=== PATIENT | female | born 1955 | race African-American/Black ===

== ENCOUNTER 2020-07-28 19:24 | Inpatient (IN) | payer OTHER ==
--- NOTE | 2020-07-28 20:34 | RAD REPORT ---
EXAM DESCRIPTION: CT - Stone Protocol - 07/28/2020 8:13 pm CLINICAL HISTORY: Flank pain. FLANK PAIN COMPARISON: No comparisons TECHNIQUE: Axial images were obtained without oral or IV contrast. Lack of contrast limits solid org an and vascular assessment. The [id number] spans the entirety of the system partially obscuring uppermost abdomen and lung bases. Coronal reformatted images were obtained and reviewed. All CT scans are performed using dose optimization technique as appropriate and may include automated exposure control or mA/KV adjustment according to patient size. FINDINGS: The lower lung cruz are clear. 7.5 x 6.4 cm rounded density is present in the right uppe r quadrant. Imaged portions of the liver and spleen show no suspicious findings on non-contrast imaging. The panc reas and adrenal glands are normal. No pathologic lymphadenopathy in the abdomen or pelvis. Aortoilia c atherosclerosis. Punctate 2 mm calculus is present in the superior pole left kidney. No hydronephrosis is present. No bowel obstruction, free air, free fluid or abscess. Normal appendix noted. Mild lower lumbar degenerative changes. IMPRESSION: Punctate 2 mm calculus superior pole left kidney. No hydronephrosis. 7.5 cm rounded masslike density in the right upper quadrant is present. This is of unclear etiology m ay be related to the stomach or the liver. Recommend CT abdomen and pelvis with contrast including or al contrast to further elucidate this finding.
[2020-07-28 20:51] LABS: Absolute Lymphocytes (CBC) 1.8 K/uL (0.7-4.9); Basophils % 1.5 % (0-1.3); Hematocrit 28.7 % (36.0-45.0); Lymphocytes % 19.2 % (15.3-44.8); MPV 9.5 fL (7.6-11.3); RBC Red Blood Cell Count 4.32 M/uL (3.86-4.86)
--- NOTE | 2020-07-28 20:53 | RAD REPORT ---
EXAM DESCRIPTION: RAD - Chest Single View - 07/28/2020 8:35 pm CLINICAL HISTORY: COUGH Chest pain. COMPARISON: Stone Protocol dated 07/28/2020 FINDINGS: Portable technique limits examination quality. The lungs are grossly clear. The heart is mildly enlarged. No displaced fractures.
[2020-07-28 21:03] LABS: Protime INR 1.07
[2020-07-28 21:10] LABS: ALT/SGPT 15 U/L (12-78); AST/SGOT 9 U/L (15-37); Albumin 2.9 g/dL (3.4-5.0); Alkaline Phosphatase 88 U/L (45-117); BUN Blood Urea Nitrogen 36 mg/dL (7-18); Bicarbonate 26 mmol/L (21-32); Bilirubin Direct < 0.1 mg/dL (0-0.2); Bilirubin Total 0.2 mg/dL (0.2-1.0); Glucose Level 249 mg/dL (74-106); Lipase 166 U/L (73-393); NT PRO-BNP 1948 pg/mL (<125); Potassium 4.4 mmol/L (3.5-5.1); Protein, Total 7.3 g/dL (6.4-8.2); Sodium Level 144 mmol/L (136-145); Troponin (Emerg Dept Use Only) 0.24 ng/mL (0.0-0.045)
--- NOTE | 2020-07-28 21:46 | ER ---
Nurse's Notes [facility] Name: Campos Odonnell Age: 64 yrs Sex: Female : 1955 Arrival Date: 07/28/2020 Time: 19:30 Bed 14 Private MD: Diagnosis: Edema, unspecified;Unspecified kidney failure-chronic;Type 1 diabetes mellitus;Subsequent non-ST elevation (NSTEMI) myocardial infarction;Anemia, unspecified Presentation: 07/28 19:31 Chief complaint: EMS states: lisa. leg swelling and shortness of breath that started em today, her kidney doctor took her off her BP medication, denies chest pain. Coronavirus screen: Client denies travel out of the [place] in the last 14 days. Ebola Screen: Patient negative for fever greater than or equal to 101.5 degrees Fahrenheit, and additional compatible Ebola Virus Disease symptoms Patient denies exposure to infectious person. Patient denies travel to an Ebola-affected area in the 21 days before illness onset. No symptoms or risks identified at this time. Initial Sepsis Screen: Does the patient meet any 2 criteria? No. Patient's initial sepsis screen is negative. Does the patient have a suspected source of infection? No. Patient's initial sepsis screen is negative. Risk Assessment: Do you want to hurt yourself or someone else? Patient reports no desire to harm self or others. Onset of symptoms was July 28, 2020. 19:31 Method Of Arrival: EMS: [facility] em 19:31 Acuity: [place] 3 em Historical: - Allergies: 19:35 Lyrica; em - Home Meds: 07/29 04:02 carvedilol oral oral [Active]; Insulin: Novolin R Sub-Q [Active]; gabapentin oral oral em [Active]; Lasix Oral [Active]; Simvastatin Oral [Active]; Spironolactone Oral [Active]; montelukast oral oral [Active]; - PMHx: 07/28 19:35 Hypertension; ESRD; Diabetes - IDDM; em - Immunization history:: Adult Immunizations up to date. - Social history:: Smoking status: Patient/guardian denies using tobacco, Stopped _ months ago 3. - Family history:: not pertinent. Screenin:35 Abuse screen: Denies threats or abuse. Nutritional screening: No deficits noted. em Tuberculosis screening: No symptoms or risk factors identified. Fall Risk None identified. Assessment: 20:41 General: Appears in no apparent distress. comfortable, Behavior is calm, cooperative, em appropriate for age. Pain: Complains of pain in left leg and right leg Pain currently is 0 out of 10 on a pain scale. Neuro: Level of Consciousness is awake, alert, obeys commands, Oriented to person, place, time, situation. Cardiovascular: Reports shortness of breath, Denies chest pain, Capillary refill < 3 seconds Patient's skin is warm and dry. Rhythm is sinus rhythm. Respiratory: Airway is patent Respiratory effort is even, unlabored, Respiratory pattern is regular, symmetrical. GI: Abdomen is round non-distended, Patient currently denies nausea. Derm: Skin is intact, is healthy with good turgor, Skin is pink, warm \T\ dry. Musculoskeletal: Capillary refill < 3 seconds, Range of motion: intact in all extremities. 22:08 Reassessment: Patient appears in no apparent distress at this time. Patient and/or em family updated on plan of care and expected duration. Pain level reassessed. Patient is alert, oriented x 3, equal unlabored respirations, skin warm/dry/pink. 03 00:30 Reassessment: Patient appears in no apparent distress at this time. Patient and/or em family updated on plan of care and expected duration. Pain level reassessed. Patient is alert, oriented x 3, equal unlabored respirations, skin warm/dry/pink. Patient states symptoms have improved. 02:13 Reassessment: Patient appears in no apparent distress at this time. Patient and/or em family updated on plan of care and expected duration. Pain level reassessed. Patient is alert, oriented x 3, equal unlabored respirations, skin warm/dry/pink. Patient states feeling better. Patient states symptoms have improved. 02:34 Reassessment: reports lower back pain and right leg pain, takes tramadol 100 mg for em pain at home, Dr. Fan notified, received VO for tramadol 100 mg PO x 1. Vital Signs: 07/28 19:31 BP 189 / 86; Pulse 77; Resp 18; Temp 97.9; Pulse Ox 100% on R/A; Weight 106.59 kg; em Height 5 ft. 6 in. (167.64 cm); Pain 0/10; 20:00 BP 163 / 68; Pulse 74; Resp 18; Pulse Ox 97% on R/A; em 22:00 BP 170 / 52; Pulse 78; Resp 18; Pulse Ox 96% on R/A; em 03/ 00:04 BP 175 / 68; Pulse 72; Resp 16; Pulse Ox 96% on R/A; em 02:35 BP 164 / 68; Pulse 73; Resp 18; Pulse Ox 99% on R/A; Pain 6/10; em 03/04 19:31 Body Mass Index 37.93 (106.59 kg, 167.64 cm) em ED Course: 07/28 19:30 Patient arrived in ED. em 19:31 Andrey Kline, MARICRUZ is Primary Nurse. em 19:31 Wilfred Fan MD is Attending Physician. [facility] 19:33 Triage completed. em 19:35 Patient has correct armband on for positive identification. Call light in reach. Side em rails up X2. Pulse ox on. NIBP on. 19:35 Arm band placed on. em 20:13 CT Stone Protocol In Process Unspecified. EDMS 20:30 Initial lab(s) drawn, by mo, sent to lab. Inserted saline lock: 20 gauge in right em antecubital area, using aseptic technique. Blood collected. 20:36 XRAY Chest (1 view) In Process Unspecified. EDMS 21:44 Magdiel Barton DO is Hospitalizing Provider. [facility] 07/29 02:17 No provider procedures requiring assistance completed. Patient admitted, IV remains in em place. 02:30 T\T\S collected, blood band applied to patient. Inserted saline lock: 22 gauge in left em forearm, using aseptic technique. Blood collected. Administered Medications: 07/28 22:18 Drug: Aspirin Chewable Tablet 162 mg Route: PO; em 07/29 02:16 Follow up: Response: No adverse reaction em 07/28 22:20 Drug: ProTONIX 40 mg Route: IVP; Site: right antecubital; em 07/29 02:18 Follow up: Response: No adverse reaction 07/28 22:22 Drug: Lopressor 25 mg Route: PO; em 07/29 02:18 Follow up: Response: No adverse reaction 07/28 22:23 Drug: Lasix 40 mg Route: IVP; Site: right antecubital; em 03/05 02:18 Follow up: Response: No adverse reaction; Marked relief of symptoms em 07/28 22:25 Drug: Pepcid 20 mg Route: IVP; Site: right antecubital; em 07/29 02:18 Follow up: Response: No adverse reaction em 07/28 22:26 Drug: Lovenox 40 mg Route: Sub-Q; Site: right lower abdomen; em 07/29 02:16 Follow up: Response: No adverse reaction em 02:40 Drug: traMADol 100 mg Route: PO; em 03:10 Follow up: Response: No adverse reaction; Pain is decreased; RASS: Alert and Calm (0) jb4 Outcome: 07/28 21:45 Decision to Hospitalize by Provider. [facility] 07/29 09:13 Patient left the ED. jl7 Signatures: Dispatcher [employer] Wilfred Delgado MD MD cha Munoz, Edgar RN Mauricio Castillo RN RN jb4 Richard Buckley RN RN jl7
--- NOTE | 2020-07-28 21:46 | EDPHYS ---
Physician Documentation [facility] Name: Campos Odonnell Age: 64 yrs Sex: Female : 1955 Arrival Date: 07/28/2020 Time: 19:30 Bed 14 Private MD: MAURSIIO Physician Wilfred Fan HPI: 07/28 20:08 This 64 yrs old Black Female presents to ER via EMS with complaints of Leg Swelling. johanne 20:08 The patient presents with swelling. The complaints affect the right leg and left leg. johanne Context: The problem was sustained at an unknown site, resulted from an unknown cause. Onset: The symptoms/episode began/occurred 3 day(s) ago. Modifying factors: The symptoms are alleviated by elevating leg, the symptoms are aggravated by movement, bending knee. Associated signs and symptoms: The patient has no apparent associated signs or symptoms. The patient presents with pain and decreased range of motion. The symptoms are located in the left low back, left mid back, right mid back and right low back. Onset: The symptoms/episode began/occurred 3 day(s) ago. The pain does not radiate. Associated signs and symptoms: The patient has no apparent associated signs or symptoms. Historical: - Allergies: 19:35 Lyrica; em - Home Meds: 07/29 04:02 carvedilol oral oral [Active]; Insulin: Novolin R Sub-Q [Active]; gabapentin oral oral em [Active]; Lasix Oral [Active]; Simvastatin Oral [Active]; Spironolactone Oral [Active]; montelukast oral oral [Active]; - PMHx: 07/28 19:35 Hypertension; ESRD; Diabetes - IDDM; em - Immunization history:: Adult Immunizations up to date. - Social history:: Smoking status: Patient/guardian denies using tobacco, Stopped _ months ago 3. - Family history:: not pertinent. ROS: 20:08 Constitutional: Negative for fever, chills, and weight loss, Eyes: Negative for injury, johanne pain, redness, and discharge, ENT: Negative for injury, pain, and discharge, Neck: Negative for injury, pain, and swelling, Cardiovascular: Negative for chest pain, palpitations, and edema, Respiratory: Negative for shortness of breath, cough, wheezing, and pleuritic chest pain, Abdomen/GI: Negative for abdominal pain, nausea, vomiting, diarrhea, and constipation, Back: Negative for injury and pain, : Negative for injury, bleeding, discharge, and swelling, MS/Extremity: Negative for injury and deformity, Skin: Negative for injury, rash, and discoloration, Neuro: Negative for headache, weakness, numbness, tingling, and seizure, Psych: Negative for depression, anxiety, suicide ideation, homicidal ideation, and hallucinations, Allergy/Immunology: Negative for hives, rash, and allergies, Endocrine: Negative for neck swelling, polydipsia, polyuria, polyphagia, and marked weight changes, Hematologic/Lymphatic: Negative for swollen nodes, abnormal bleeding, and unusual bruising. Exam: 20:08 Constitutional: This is a well developed, well nourished patient who is awake, alert, johanne and in no acute distress. Head/Face: Normocephalic, atraumatic. Eyes: Pupils equal round and reactive to light, extra-ocular motions intact. Lids and lashes normal. Conjunctiva and sclera are non-icteric and not injected. Cornea within normal limits. Periorbital areas with no swelling, redness, or edema. ENT: Nares patent. No nasal discharge, no septal abnormalities noted. Tympanic membranes are normal and external auditory canals are clear. Oropharynx with no redness, swelling, or masses, exudates, or evidence of obstruction, uvula midline. Mucous membranes moist. Neck: Trachea midline, no thyromegaly or masses palpated, and no cervical lymphadenopathy. Supple, full range of motion without nuchal rigidity, or vertebral point tenderness. No Meningismus. Chest/axilla: Normal chest wall appearance and motion. Nontender with no deformity. No lesions are appreciated. Cardiovascular: Regular rate and rhythm with a normal S1 and S2. No gallops, murmurs, or rubs. Normal PMI, no JVD. No pulse deficits. Respiratory: Lungs have equal breath sounds bilaterally, clear to auscultation and percussion. No rales, rhonchi or wheezes noted. No increased work of breathing, no retractions or nasal flaring. Abdomen/GI: Soft, non-tender, with normal bowel sounds. No distension or tympany. No guarding or rebound. No evidence of tenderness throughout. Back: No spinal tenderness. No costovertebral tenderness. Full range of motion. Skin: Warm, dry with normal turgor. Normal color with no rashes, no lesions, and no evidence of cellulitis. Neuro: Awake and alert, GCS 15, oriented to person, place, time, and situation. Cranial nerves II-XII grossly intact. Motor strength 5/5 in all extremities. Sensory grossly intact. Cerebellar exam normal. Normal gait. Psych: Awake, alert, with orientation to person, place and time. Behavior, mood, and affect are within normal limits. 20:08 Musculoskeletal/extremity: ROM: full active range of motion, full passive range of motion, Circulation is intact in all extremities. Sensation intact. Compartment Syndrome exam of affected extremity: is normal. DVT Exam: No signs of deep vein thrombosis. no pain, no tenderness, negative Homans' sign noted on exam, no appreciated bluish discoloration, no erythema, no increased warmth, swelling, that is mild, of the right leg and left leg. 21:48 ECG was reviewed by the Attending Physician. [facility] Vital Signs: 19:31 BP 189 / 86; Pulse 77; Resp 18; Temp 97.9; Pulse Ox 100% on R/A; Weight 106.59 kg; em Height 5 ft. 6 in. (167.64 cm); Pain 0/10; 20:00 BP 163 / 68; Pulse 74; Resp 18; Pulse Ox 97% on R/A; em 22:00 BP 170 / 52; Pulse 78; Resp 18; Pulse Ox 96% on R/A; em 03 00:04 BP 175 / 68; Pulse 72; Resp 16; Pulse Ox 96% on R/A; em 02:35 BP 164 / 68; Pulse 73; Resp 18; Pulse Ox 99% on R/A; Pain 6/10; em 03 19:31 Body Mass Index 37.93 (106.59 kg, 167.64 cm) em MDM: 07/28 19:31 Patient medically screened. [facility] 20:15 Differential diagnosis: Cholelithiasis chronic back pain, Hydronephrosis. Data [facility] reviewed: vital signs, nurses notes, lab test result(s), EKG, radiologic studies, CT scan, plain films. Data interpreted: residential monitor: rate is 77 beats/min, rhythm is regular, Pulse oximetry: on room air is 100 %. Test interpretation: by ED physician or midlevel provider: ECG, plain radiologic studies. Counseling: I had a detailed discussion with the patient and/or guardian regarding: the historical points, exam findings, and any diagnostic results supporting the discharge/admit diagnosis, the presence of at least one elevated blood pressure reading (>120/80) during this emergency department visit, lab results, radiology results. 07/28 19:51 Order name: Basic Metabolic Panel; Complete Time: 21:39 johanne 07/28 19:51 Order name: CBC with Diff [facility] 07/28 19:51 Order name: LFT's; Complete Time: 21:39 johanne 07/28 19:51 Order name: Magnesium; Complete Time: 21:39 johanne 07/28 19:51 Order name: NT PRO-BNP; Complete Time: 21:39 johanne 07/28 19:51 Order name: PT-INR; Complete Time: 21:39 johanne 07/28 19:51 Order name: Troponin (emerg Dept Use Only); Complete Time: 21:39 [facility] 07/28 19:51 Order name: Lipase; Complete Time: 21:39 [facility] 07/28 21:43 Order name: COVID-19 : Document "Date of Symptom Onset" if Symptomatic. [facility] 07/28 21:51 Order name: CBC Smear Scan EDMI 07/28 22:02 Order name: Type And Screen [facility] 07/28 22:10 Order name: Urine Dipstick--Ancillary (enter results) tt3 07/29 00:25 Order name: SARS-COV-2 RT PCR EDMI 07/28 19:51 Order name: XRAY Chest (1 view); Complete Time: 20:59 [facility] 07/28 19:51 Order name: CT Stone Protocol; Complete Time: 20:45 [facility] 07/29 04:25 Order name: ABO/RH no charge EDMS 07/29 06:13 Order name: CBC with Automated Diff EDMS 07/29 06:36 Order name: Comprehensive Metabolic Panel EDMS 07/29 06:36 Order name: Troponin I EDMS 07/29 06:36 Order name: Lipid Profile EDMS 07/29 06:36 Order name: T4 Free EDMS 07/29 06:36 Order name: Magnesium EDMS 07/29 06:36 Order name: Thyroid Stimulating Hormone EDMS 07/29 06:36 Order name: Transferrin Sat/Iron Binding EDMS 07/29 06:36 Order name: Ferritin EDMS 07/29 06:45 Order name: LDL, Direct EDMS 07/29 07:03 Order name: Hemoglobin A1c EDMS 07/29 08:09 Order name: Glucose, Ancillary Testing EDMI 07/28 19:51 Order name: EKG; Complete Time: 19:52 [facility] 07/28 19:51 Order name: Cardiac monitoring; Complete Time: 20:40 [facility] 07/28 19:51 Order name: EKG - Nurse/Tech; Complete Time: 20:40 [facility] 07/28 19:51 Order name: IV Saline Lock; Complete Time: 20:40 [facility] 07/28 19:51 Order name: Labs collected and sent; Complete Time: 20:40 [facility] 07/28 19:51 Order name: O2 Per Protocol; Complete Time: 20:40 [facility] 07/28 19:51 Order name: O2 Sat Monitoring; Complete Time: 20:40 [facility] 07/28 19:51 Order name: Urine Dipstick-Ancillary (obtain specimen); Complete Time: 03:55 [facility] EC:48 Rate is 76 beats/min. Rhythm is regular. QRS Register is Normal. MN interval is normal. QRS johanne interval is normal. QT interval is prolonged at 428 msec. No Q waves. T waves are Normal. No ST changes noted. Clinical impression: NSR w/ Non-specific ST/T Changes and No evidence of ischemia. Administered Medications: 22:18 Drug: Aspirin Chewable Tablet 162 mg Route: PO; em 07/29 02:16 Follow up: Response: No adverse reaction em 07/28 22:20 Drug: ProTONIX 40 mg Route: IVP; Site: right antecubital; em 07/29 02:18 Follow up: Response: No adverse reaction em 07/28 22:22 Drug: Lopressor 25 mg Route: PO; em 07/29 02:18 Follow up: Response: No adverse reaction em 07/28 22:23 Drug: Lasix 40 mg Route: IVP; Site: right antecubital; em 07/29 02:18 Follow up: Response: No adverse reaction; Marked relief of symptoms em 07/28 22:25 Drug: Pepcid 20 mg Route: IVP; Site: right antecubital; em 07/29 02:18 Follow up: Response: No adverse reaction em 07/28 22:26 Drug: Lovenox 40 mg Route: Sub-Q; Site: right lower abdomen; em 07/29 02:16 Follow up: Response: No adverse reaction em 02:40 Drug: traMADol 100 mg Route: PO; em 03:10 Follow up: Response: No adverse reaction; Pain is decreased; RASS: Alert and Calm (0) jb4 Disposition: 07/28/20 21:45 Hospitalization ordered by Magdiel Barton for Observation. Preliminary diagnosis are Edema, unspecified, Unspecified kidney failure - chronic, Type 1 diabetes mellitus, Subsequent non-ST elevation (NSTEMI) myocardial infarction, Anemia, unspecified. - Bed requested for Telemetry/MedSurg (observation). - Status is Observation. jl7 - Condition is Fair. - Problem is new. - Symptoms have improved. Signatures: Dispatcher [employer] [facility] Wilfred Fan MD MD cha Munoz, Edgar RN RN Ruy Finn, CELL POURER-C CELL POURER-Cla1 Kylah Gunn RN RN Richard Buckley RN RN jl7 Belen Mercer James RN jb4 Corrections: (The following items were deleted from the chart) 07/28 23:20 21:43 CORONAVIRUS ordered. [facility] 07/29 03:20 03 21:45 Hospitalization Ordered by Magdiel Barton DO for Observation. Preliminary cg diagnosis is Edema, unspecified; Unspecified kidney failure - chronic; Type 1 diabetes mellitus; Subsequent non-ST elevation (NSTEMI) myocardial infarction; Anemia, unspecified. Bed requested for Telemetry/MedSurg (observation). Status is Observation. Condition is Fair. Problem is new. Symptoms have improved. [facility] 07/29 07:39 03:20 07/28/2020 21:45 Hospitalization Ordered by Magdiel Barton DO for Observation. eb Preliminary diagnosis is Edema, unspecified; Unspecified kidney failure - chronic; Type 1 diabetes mellitus; Subsequent non-ST elevation (NSTEMI) myocardial infarction; Anemia, unspecified. Bed requested for [facility] ER HOLD. Status is Observation. Condition is Fair. Problem is new. Symptoms have improved. 09:13 07:39 07/28/2020 21:45 Hospitalization Ordered by Magdiel Barton DO for Observation. jl7 Preliminary diagnosis is Edema, unspecified; Unspecified kidney failure - chronic; Type 1 diabetes mellitus; Subsequent non-ST elevation (NSTEMI) myocardial infarction; Anemia, unspecified. Bed requested for Telemetry/MedSurg (observation). Status is Observation. Condition is Fair. Problem is new. Symptoms have improved. eb
[2020-07-28 21:51] LABS: Anisocytosis 1+; Blood Morphology Comment NOTED (NOT SEEN); Hypochromasia 1+; Platelet Estimate ADEQ; White Blood Cell Scan OK (OK)
[2020-07-28 22:17] LABS: Urine Blood NEGATIVE (NEG); Urine Glucose NEGATIVE (NEG); Urine Protein TRACE (NEG); Urine Specific Gravity 1.015 (1.005-1.030)
--- NOTE | 2020-07-28 22:22 | P.HP ---
Certification for Inpatient Patient admitted to: Inpatient With expected LOS: >2 Midnights Patient will require the following post-hospital care: None Practitioner: I am a practitioner with admitting privileges, knowledge of patient current condition, hospital course, and medical plan of care. Services: Services provided to patient in accordance with Admission requirements found in Title 42 Section 412.3 of the Code of Federal Regulations <Ruy Finn - Last Filed: 07/28/20 22:13> Patient admitted to: Inpatient <Magdiel Barton - Last Filed: 07/29/20 09:40> Patient History Date of Service: 07/28/20 Primary Care Provider: PCP: Dr. Ramirez Us, Nephro: Dr. Emilia Reyna Cards:none Reason for admission: NSTEMI, CHF exacerbation History of Present Illness: 64-year-old female with history of CHF, hypertension, diabetes mellitus type 2, CKD 3, chronic constipation, chronic upper GI bleed presents the emergency department for shortness of breath and swelling of the lower extremities. Patient reports that she recently moved to [place] and called her [employer] to notify them of her move, they asked her how she has been feeling and she reported that she is short of breath with swelling to lower extremities, EMS was called out to examine patient found to be significantly hypertensive with blood pressure around 200/100. Patient was evaluated in the emergency department found to have worsening renal function, rule reported renal function was baseline GFR in the 30s with CKD 3, current GFR is 26 also noted to have elevated BNP 1948 and initial troponin elevated to 0.24 hemoglobin 9.2 hematocrit 28.7, MCV 66.5 patient reports that she has had dark tarry stools for the last 3 years and that she follows gastroenterology for this, it is reportedly he is supposed to have a surgery in the relatively near future for this but needed cardiac clearance prior. ED provider wishes to admit patient for non ST elevation myocardial infarction, CHF exacerbation - Past Medical/Surgical History -: CHF-unknown EF -: Diabetes mellitus type 2 -: CKD 3 -: Hypertension -: Chronic constipation -: Chronic upper GI bleed -: Chronic back pain -: Neuropathy -: -: Back surgery -: Hysterectomy Psychosocial/ Personal History: Patient retired, lives alone - Family History Father -: Heart disease Mother -: Hypertension, Diabetes - Social History Smoking Status: Former smoker Alcohol use: No CD- Drugs: No Caffeine use: Yes Place of Residence: Home <Ruy Finn - Last Filed: 07/28/20 22:13> Date of Service: 07/29/20 <Magdiel Barton - Last Filed: 07/29/20 09:40> Review of Systems 10-point ROS is otherwise unremarkable Respiratory: Shortness of Breath, SOB with Excertion Cardiovascular: Orthopnea, Edema <Ruy Finn - Last Filed: 07/28/20 22:13> Physical Examination - Physical Exam General: Alert, In no apparent distress HEENT: Atraumatic, PERRLA, Mucous membr. moist/pink Neck: Supple, 2+ carotid pulse no bruit, No LAD Respiratory: Normal air movement, Diminished (Bilaterally) Cardiovascular: Regular rate/rhythm, Normal S1 S2, Edema (Mild nonpitting edema bilateral lower extremities) Gastrointestinal: Normal bowel sounds, No tenderness Musculoskeletal: No tenderness Integumentary: No rashes Neurological: Normal speech, Normal strength at 5/5 x4 extr, Normal tone - Studies Laboratory Data (last 24 hrs) 07/28/20 20:35: PT 12.3, INR 1.07 07/28/20 20:35: WBC 9.10, Hgb 9.2 L, Hct 28.7 L, Plt Count 279 07/28/20 20:35: Sodium 144, Potassium 4.4, BUN 36 H, Creatinine 1.92 H, Glucose 249 H, Magnesium 2.0, Total Bilirubin 0.2, AST 9 L, ALT 15, Alkaline Phosphatase 88, Lipase 166 <Ruy Finn - Last Filed: 07/28/20 22:13> - Studies Laboratory Data (last 24 hrs) 07/28/20 20:35: PT 12.3, INR 1.07 07/28/20 20:35: WBC 9.10, Hgb 9.2 L, Hct 28.7 L, Plt Count 279 07/28/20 20:35: Sodium 144, Potassium 4.4, BUN 36 H, Creatinine 1.92 H, Glucose 249 H, Magnesium 2.0, Total Bilirubin 0.2, AST 9 L, ALT 15, Alkaline Phosphatase 88, Lipase 166 <Magdiel Barton - Last Filed: 07/29/20 09:40> Assessment and Plan - Plan Assessment NSTEMI suspect demand ischemia related to acute on chronic congestive heart failure with volume overload-unknown EF Chronic upper GI bleed ROOPA superimposed on CKD 3 Diabetes mellitus type 2 Hypertension Chronic back pain Neuropathy Plan NSTEMI suspect demand ischemia related to acute on chronic congestive heart failure with volume overload-unknown EF: Monitor on telemetry, trend troponins, cardiology consult in place. Continue daily aspirin, statin, beta-kris therapy, obtain and verify home medications. No echocardiogram available for review, patient reports that spend A while since she last had echocardiogram, last stress test reported to be over 10 years ago and has never had a heart catheterization. Patient given DVT prophylaxis dose of Lovenox in the emergency department due to renal function and ongoing chronic slow GI bleed. Will hold off on full-dose anticoagulation as much as possible as patient is not currently having any chest pain or EKG changes. Appreciate further input from cardiology. Echocardiogram ordered, continue with IV Lasix for diuresis and fluid restriction. DVT prophylaxis with SCDs due to chronic slow GI bleed. NPO after midnight in case of heart catheterization as patient reports she has never had 1 done for evaluation of heart disease. Chronic upper GI bleed: Hemoglobin 9.2 unknown baseline, patient reports that she has had an ongoing slow upper GI bleed for the last 3 years for which she sees Gastroenterology and has planned outpatient procedure. Will continue to monitor hemoglobin/hematocrit closely continue daily pantoprazole, consult gastroenterology as necessary. Avoid full-dose anticoagulation as much as possible. ROOPA superimposed on CKD 3: Likely related to cardiorenal syndrome, continue with IV Lasix overnight, nephrology has been consulted. Appreciate further input from nephrology. Avoid IV contrast, NSAIDs. Diabetes mellitus type 2: A.c. HS Accu-Cheks, sliding scale insulin therapy. A1c with morning labs Hypertension: Obtain and continue home medications as appropriate, may need to renally dose. Chronic back pain: Continue home medications for back pain. Neuropathy: Continue home meds Discharge Plan: Home Plan to discharge in: 48 Hours - Advance Directives Does patient have a Living Will: No Does patient have a Durable POA for Healthcare: No - Code Status/Comfort Care Code Status Assessed: Yes (Full code) Critical Care: No Time Spent Managing Pts Care (In Minutes): 55 <Ruy Finn - Last Filed: 07/28/20 22:13> - Plan Agree with plan of care. Please see note for details. <Magdiel Barton - Last Filed: 07/29/20 09:40>
[2020-07-28] MEDS ORDERED: FUROSEMIDE 40 MG/4 ML VIAL ONE (22:32)
[2020-07-28] MEDS ORDERED: ASPIRIN 81 MG CHEWABLE TABLET ONE (22:32)
[2020-07-28] MEDS ORDERED: PANTOPRAZOLE 40 MG INJ ONE (22:32)
[2020-07-28] MEDS ORDERED: METOPROLOL TAR 25 MG TAB ONE (22:32)
[2020-07-28] MEDS ORDERED: ENOXAPARIN 40 MG/0.4 ML SQ ONE (22:33)
[2020-07-28] MEDS ORDERED: FAMOTIDINE 20 MG/2 ML VIAL IV ONE (22:33)
[2020-07-29] MEDS ORDERED: GABAPENTIN 300 MG CAP ONE (02:39)
[2020-07-29] MEDS ORDERED: ACETAMINOPHEN 325 MG TABLET ONE (02:39)
[2020-07-29] MEDS ORDERED: TRAMADOL HCL 50 MG TAB ONE (03:00)
[2020-07-29] MEDS ORDERED: SODIUM CHLORIDE 0.9% 10ML INJ IV PRN (04:16)
[2020-07-29] MEDS ORDERED: ONDANSETRON 4 MG/2 ML VIAL IV PRN (04:16)
[2020-07-29] MEDS ORDERED: ACETAMINOPHEN 500 MG TAB PO PRN (04:16)
[2020-07-29 05:14] VITALS: BMI 37.9
[2020-07-29] MEDS: METOPROLOL TAR 25 MG TAB PO SCH ×2 (05:41→18:02)
[2020-07-29 05:51] LABS: Absolute Lymphocytes (CBC) 1.9 K/uL (0.7-4.9); Basophils % 0.9 % (0-1.3); Hematocrit 29.1 % (36.0-45.0); Lymphocytes % 18.6 % (15.3-44.8); MPV 9.1 fL (7.6-11.3); RBC Red Blood Cell Count 4.36 M/uL (3.86-4.86)
[2020-07-29] MEDS ORDERED: METOPROLOL TAR 25 MG TAB ONE (05:51)
[2020-07-29 06:21] LABS: ALT/SGPT 17 U/L (12-78); AST/SGOT 6 U/L (15-37); Alkaline Phosphatase 94 U/L (45-117); BUN Blood Urea Nitrogen 41 mg/dL (7-18); Bicarbonate 23 mmol/L (21-32); Bilirubin Total 0.2 mg/dL (0.2-1.0); Ferritin 18.8 ng/mL (8-388); Glucose Level 347 mg/dL (74-106); HDL Cholesterol 48 mg/dL (40-60); Magnesium 1.7 mg/dL (1.8-2.4); Potassium 4.5 mmol/L (3.5-5.1); Protein, Total 7.1 g/dL (6.4-8.2); Sodium Level 140 mmol/L (136-145); Transferrin 180 mg/dL (200-360); Troponin I 0.16 ng/mL (0.0-0.045)
[2020-07-29 06:45] LABS: LDL, Direct 57 mg/dL (100-129)
[2020-07-29] MEDS ORDERED: MAGNESIUM SULFATE 1 gm IVPB 1 GM/100 ML BAG IV ONE ×2 (06:49→07:10)
[2020-07-29] MEDS: INSULIN -REGULAR HUMAN 50 UNIT/0.5 ML ML SQ SCH ×4 (07:30→21:00)
[2020-07-29] MEDS ORDERED: INSULIN -REGULAR HUMAN 50 UNIT/0.5 ML ML ONE (08:18)
[2020-07-29] MEDS ORDERED: PANTOPRAZOLE 40 MG INJ IVP SCH (09:00)
--- NOTE | 2020-07-29 09:45 | P.PN ---
Subjective Date of Service: 07/29/20 Primary Care Provider: PCP: Dr. Ramirez Us, Nephro: Dr. Emilia Reyna Cards:none Chief Complaint: NSTEMI, CHF exacerbation Subjective: Other (Shortness of breath improved. Edema to the lower extremity improved.) Physical Examination - Vital Signs Temperature: 98.5 F Blood Pressure: 169/72 Pulse: 63 Respirations: 15 Pulse Ox (%): 97 - Studies Laboratory Data (last 24 hrs) 07/28/20 20:35: PT 12.3, INR 1.07 07/28/20 20:35: WBC 9.10, Hgb 9.2 L, Hct 28.7 L, Plt Count 279 07/28/20 20:35: Sodium 144, Potassium 4.4, BUN 36 H, Creatinine 1.92 H, Glucose 249 H, Magnesium 2.0, Total Bilirubin 0.2, AST 9 L, ALT 15, Alkaline Phosphatase 88, Lipase 166 Assessment & Plan Discharge Plan: Home Plan to discharge in: 24 Hours Physician Review Additional Text: Physical exam: Patient alert, cooperative. No significant distress. Heart: Regular rate and rhythm Lungs: Improved aeration. Less crackles to the bases. Abdomen: Soft nontender nondistended Extremities: Edema to the lower extremities around 1+ but appears improved. Assessment Shortness of breath secondary to acute on chronic CHF with volume overload unknown EF complicated with elevated troponin likely NSTEMI versus ischemic demand Anemia of chronic disease with history of upper GI bleed and iron deficiency anemia Acute on chronic kidney disease stage 3 Diabetes mellitus type 2 Hypertension Chronic back pain Diabetic Neuropathy Obesity, BMI 37.9 Plan Shortness of breath secondary to acute on chronic CHF with volume overload unknown EF complicated with elevated troponin likely NSTEMI versus ischemic demand: Continue aspirin, statin, beta-kris therapy. Will teach on fluid restriction. Continue IV Lasix. Echocardiogram ordered. Spoke with cardiology. Cardiology recommends cardiac stress test to further evaluate. Anticipate improvement over the next 24-48 hr. Anemia of chronic disease with history of upper GI bleed and iron deficiency anemia: Hemoglobin remained stable. Patient sees Gastroenterology as an outpatient. Maintain hemoglobin above 7.0. Will initiate iron supplementation. Acute on chronic kidney disease stage 3: Patient sees Nephrology as an outpatient. Will teach on chronic renal disease. Nephrology consulted. Await recommendations. Diabetes mellitus type 2: Hemoglobin A1c 8.7. Will need to obtain and restart home medication. May need to make adjustments to her medication for better control. Continue Accu-Cheks. Hypertension: Continue blood pressure medication. Continue Metoprolol. Will obtain and verify home medication. Chronic back pain: Provide medication for pain. Diabetic Neuropathy: Provide medication for pain. Obesity, BMI 37.9: Will address lifestyle modification education. Patient should outpatient sleep study to evaluate for underlying obstructive sleep apnea. Time Spent Managing Pts Care (In Minutes): 55
[2020-07-29] MEDS: ASPIRIN EC 81 MG TAB PO SCH (10:13)
[2020-07-29] MEDS: FUROSEMIDE 40 MG/4 ML VIAL IV SCH ×2 (10:13→18:03)
[2020-07-29 10:25] LABS: Anisocytosis 1+; Blood Morphology Comment NOTED (NOT SEEN); Hypochromasia 1+; Platelet Estimate ADEQ; Teardrop Cell 1+
[2020-07-29] MEDS ORDERED: REGADENOSON 0.4 MG/5 ML SYR IV ONE (10:45)
--- NOTE | 2020-07-29 13:26 | RAD REPORT ---
EXAM DESCRIPTION: NM - Rest Stress Cardiac Imaging - 07/29/2020 12:58 pm CLINICAL HISTORY: Chest pain COMPARISON: None. TECHNIQUE: The patient was administered 10.7 mCi of Tc 99m Sestamibi prior to resting SPECT imaging of the heart. The patient was then administered 31.8 mCi of Tc 99m Sestamibi following exercise or ph armacologic stress. Multiplanar SPECT images were reviewed. FINDINGS: The end diastolic volume is 146 ml, the end systolic volume is 88 ml, and the ejection fra ction is 40 %. Focal decreased activity is seen in the anterior wall mid in apex portion on stress imaging that is o nly fractionally more pronounced than on the rest sequencing. Small focus of diminished activity is s een in the inferolateral wall not present on the rest sequencing. Additional minimal areas of dimini shed activity seen in the inferior wall unchanged between rest and stress imaging. IMPRESSION: Small focal areas of mild stress-induced ischemia in the anterior wall and inferolateral wall. End-diastolic volume was 146 mL. Ejection fraction was well below normal at 40%.
--- NOTE | 2020-07-29 18:58 | P.CNS ---
Date of Consult: 07/29/20 Primary Care Provider: PCP: Dr. Ramirez Us, Nephro: Dr. Emilia Reyna Cards:none Chief Complaint: NSTEMI, CHF exacerbation History of Present Illness: Pt is a 64 y/o male with psat medical hx of hypertension, chronic kidney disease stage 3, presenting with complaints of chest pain, found to possibly have nstemi and chf exacerbation. Pt at this time reports improvement of symptoms. Shortness of breath as well a sbil le swelling is improved. Denies any nausea, vomiting, diarrhea. Renal has been consulted for management of roopa on ckd. Of note pt sees Dr Jay in [facility]. reports having stage 3 ckd, denies any nsaid use or urinary symptoms. No new medications as well at this time, Has chornic athritis which she takes tramadol for Allergies pregabalin [From Lyrica] Allergy (Verified 07/29/20 02:20) Hives/Rash - Past Medical/Surgical History Diabetic: Yes -: CHF-unknown EF -: Diabetes mellitus type 2 -: CKD 3 -: Hypertension -: Chronic constipation -: Chronic upper GI bleed -: Chronic back pain -: left side "nerve damage" -: -: Back surgery -: Hysterectomy Psychosocial/ Personal History: Patient retired, lives alone - Family History Father Medical History: Heart disease Mother History Unknown: Yes Medical History: Hypertension, Diabetes - Social History Alcohol use: No CD- Drugs: No Caffeine use: No Place of Residence: Home Review of Systems 10-point ROS is otherwise unremarkable Physical Examination Temp Pulse Resp BP Pulse Ox 97.4 F 72 16 160/70 H 94 07/29/20 16:00 07/29/20 18:03 07/29/20 16:00 07/29/20 18:03 07/29/20 16:00 General: Alert, In no apparent distress HEENT: Atraumatic, PERRLA, Mucous membr. moist/pink, EOMI, Sclerae nonicteric Neck: Supple, 2+ carotid pulse no bruit, No LAD, Without JVD or thyroid abnormality Respiratory: Diminished Cardiovascular: Regular rate/rhythm, Normal S1 S2 Capillary refill: <2 Seconds Gastrointestinal: Normal bowel sounds, No tenderness Musculoskeletal: No tenderness Integumentary: No rashes Neurological: Normal gait, Normal speech, Normal tone, Normal affect Laboratory Data (last 24 hrs) 07/28/20 20:35: PT 12.3, INR 1.07 07/28/20 20:35: WBC 9.10, Hgb 9.2 L, Hct 28.7 L, Plt Count 279 07/28/20 20:35: Sodium 144, Potassium 4.4, BUN 36 H, Creatinine 1.92 H, Glucose 249 H, Magnesium 2.0, Total Bilirubin 0.2, AST 9 L, ALT 15, Alkaline Phosphatase 88, Lipase 166 Conclusions/Impression: Problems ROOPA on ckd stage 3 most likely cardiorenal NSTEMI CHF exacerbation Hypertension Plan Plan agree with laix 40mg iv, will increase to tid dosing Blood pressure controlled Hold any acei arbs at this time until kidney function is more stable Will check ua, upc. CT negative for any obstruction or urinary retention. Thank you for this interesting consult. Will continue to follow. Physician Review: Patient Assessed, Agree with Above Assessment and Plan
[2020-07-29] MEDS: TRAMADOL HCL 50 MG TAB PO PRN (20:45)
[2020-07-29] MEDS: FERROUS SULFATE 325 MG TAB PO SCH (20:45)
[2020-07-30] MEDS: FUROSEMIDE 40 MG/4 ML VIAL IV SCH ×2 (00:49→07:42)
[2020-07-30] MEDS: METOPROLOL TAR 25 MG TAB PO SCH ×2 (05:26→16:55)
[2020-07-30] MEDS: PANTOPRAZOLE 40MG TABLET PO SCH (05:27)
[2020-07-30] MEDS ORDERED: GLUCAGON 1 MG/VIAL IM PRN (06:00)
[2020-07-30] MEDS ORDERED: D50W 25 GM/50 ML SYRINGE IV PRN (06:00)
[2020-07-30 06:12] LABS: Hematocrit 29.8 % (36.0-45.0); Lymphocytes % 18.4 % (15.3-44.8); MPV 9.1 fL (7.6-11.3); RBC Red Blood Cell Count 4.55 M/uL (3.86-4.86)
[2020-07-30 06:25] LABS: Bilirubin Total 0.2 mg/dL (0.2-1.0); Magnesium 1.9 mg/dL (1.8-2.4); Potassium 4.4 mmol/L (3.5-5.1); Protein, Total 7.3 g/dL (6.4-8.2)
[2020-07-30] MEDS: INSULIN -REGULAR HUMAN 50 UNIT/0.5 ML ML SQ SCH ×4 (07:30→20:23)
[2020-07-30] MEDS: ASPIRIN EC 81 MG TAB PO SCH (07:42)
[2020-07-30] MEDS: INSULIN GLARGINE 100 UNITS/ML SQ SCH ×2 (07:42→20:23)
[2020-07-30] MEDS: FOLIC ACID 1 MG TABLET PO SCH (07:42)
[2020-07-30] MEDS: FERROUS SULFATE 325 MG TAB PO SCH ×2 (07:42→20:22)
[2020-07-30] MEDS ORDERED: D50W 25 GM/50 ML VIAL IV PRN (08:00)
--- NOTE | 2020-07-30 08:01 | P.PN ---
Subjective Date of Service: 07/30/20 Primary Care Provider: PCP: Dr. Ramirez Us, Nephro: Dr. Emilia Reyna Cards:none Chief Complaint: NSTEMI, CHF exacerbation Subjective: Improving (Patient reported some cramping to the lower extremities. Edema improved. No significant shortness of breath. Patient on room air.) Physical Examination - Vital Signs Temperature: 97.9 F Blood Pressure: 114/57 Pulse: 67 Respirations: 20 Pulse Ox (%): 93 Assessment & Plan Discharge Plan: Home Plan to discharge in: 48 Hours Physician Review Additional Text: Physical exam: Patient alert, cooperative. No significant distress. Patient on room-air. Heart: Regular rate and rhythm Lungs: Good air movement bilateral. Cleared anteriorly. Abdomen: Soft nontender nondistended Extremities: No significant edema to the lower extremities Assessment Shortness of breath secondary to acute on chronic systolic CHF with volume overload, EF less than 40%, unknown EF complicated with elevated troponin likely ischemic demand but with abnormal cardiac stress test Anemia of chronic disease with history of upper GI bleed and iron deficiency anemia Acute on chronic kidney disease stage 3 Diabetes mellitus type 2 Hypertension Chronic back pain Diabetic Neuropathy Suspect obstructive sleep apnea Obesity, BMI 37.9 Plan Shortness of breath secondary to acute on chronic systolic CHF with volume overload, EF less than 40%, complicated with elevated troponin likely ischemic demand but with abnormal cardiac stress test: Patient has improved with diuresis. Will decrease IV Lasix to 40 mg twice daily. Continue 1500 cc per day fluid restriction. Continue education on CHF. Await echocardiogram. Blood pressure improved with beta-kris therapy. Continue aspirin, statin and metoprolol. LDL well controlled below 70. Likely no need for Lipitor discharge. Patient on DVT prophylaxis-Lovenox. Cardiac stress test shows small focal areas of mild stress-induced ischemia in the anterior wall and inferior lateral wall. Ejection fraction below 40%. Spoke with cardiology yesterday. Patient remain in the hospital and have heart catheterization on Saturday for further evaluation of possible CAD. Continue with Cardiology recommendations. Will discuss with nephrology as well. Patient understands plan of care. Anticipate possible discharge on Saturday pending heart catheterization results. Anemia of chronic disease with history of upper GI bleed and iron deficiency anemia: Hemoglobin remained stable. Patient sees Gastroenterology as an outpatient. Maintain hemoglobin above 7.0. Continue with iron supplementation. Acute on chronic kidney disease stage 3: Overall stable. Patient seen by nephrology. Continue with Nephrology recommendations. Will decrease IV Lasix to twice daily. Diabetes mellitus type 2: Hemoglobin A1c 8.7. Still need to obtain and verify home medication. Lantus 10 units subcu twice daily initiated. Continue monitor Accu-Cheks. Sliding scale in place. Hypertension: Blood pressure controlled with metoprolol. Continue to monitor and adjust. Obtain and verify home medication. Chronic back pain: Continue to provide medication for pain. Diabetic Neuropathy: Continue to provide medication for pain. Suspect Obstructive sleep apnea: Would recommend pulmonology evaluation as an outpatient for sleep study to further evaluate. Obesity, BMI 37.9: Continue to address lifestyle modification education. Time Spent Managing Pts Care (In Minutes): 55
[2020-07-30] MEDS ORDERED: FUROSEMIDE 40 MG/4 ML VIAL IV SCH (09:00)
--- NOTE | 2020-07-30 09:27 | P.PN ---
Subjective Date of Service: 07/30/20 Primary Care Provider: PCP: Dr. Ramirez Us, Nephro: Dr. Emilia Reyna Cards:none Chief Complaint: NSTEMI, CHF exacerbation Subjective: Improving (Shortness of breath keeps improving) Pt feeling well and feels like she is not carrying any more excess fluid. Breathing is normal and she is lying flat in bed. Review of Systems 10-point ROS is otherwise unremarkable Physical Examination - Vital Signs Temperature: 97.9 F Blood Pressure: 114/57 Pulse: 67 Respirations: 20 Pulse Ox (%): 93 - Physical Exam General: Alert, In no apparent distress HEENT: Atraumatic, PERRLA, EOMI Neck: Supple, JVD not distended Respiratory: Clear to auscultation bilaterally, Normal air movement Cardiovascular: Regular rate/rhythm, Normal S1 S2 Gastrointestinal: Normal bowel sounds, No tenderness Musculoskeletal: No tenderness Integumentary: No rashes Neurological: Normal speech, Normal tone, Normal affect Lymphatics: No axilla or inguinal lymphadenopathy Assessment & Plan Physician Review Additional Text: Problems ROOPA on ckd stage 3 most likely cardiorenal or maybe patients baseline NSTEMI CHF exacerbation Hypertension Plan Pt at baseline kidney function. Will switch to lasix 40mg po bid. Since getting cardiac cath saturday, will hold diuresis tommorrow Will start mucomyst for contrast nephropathy prophylaxis Blood pressure control--> need to get under control. Metoprolol 25mg bid started, will continue to monitor. Hold any acei arbs at this time until kidney function is more stable UA, UPC pending CT negative for any obstruction or urinary retention. Will continue to follow.
[2020-07-30] MEDS: ENOXAPARIN 30 MG/0.3 ML SQ SCH (16:55)
[2020-07-30] MEDS: FUROSEMIDE 40 MG TABLET PO SCH (16:55)
[2020-07-30] MEDS: ATORVASTATIN 40 MG TAB PO SCH (20:22)
[2020-07-30] MEDS: TRAMADOL HCL 50 MG TAB PO PRN (21:03)
[2020-07-30] MEDS: ACETYLCYST 20% 800 MG/4 ML VIAL PO SCH (21:03)
[2020-07-31] MEDS: PANTOPRAZOLE 40MG TABLET PO SCH (06:31)
[2020-07-31] MEDS: METOPROLOL TAR 25 MG TAB PO SCH ×2 (06:31→17:28)
[2020-07-31 06:46] LABS: Magnesium 2.1 mg/dL (1.8-2.4); Potassium 4.3 mmol/L (3.5-5.1)
[2020-07-31] MEDS: INSULIN -REGULAR HUMAN 50 UNIT/0.5 ML ML SQ SCH ×4 (08:45→20:16)
[2020-07-31] MEDS: FOLIC ACID 1 MG TABLET PO SCH (08:46)
[2020-07-31] MEDS: ACETYLCYST 20% 800 MG/4 ML VIAL PO SCH ×2 (08:46→20:15)
[2020-07-31] MEDS: ASPIRIN EC 81 MG TAB PO SCH (08:46)
[2020-07-31] MEDS: FERROUS SULFATE 325 MG TAB PO SCH ×2 (08:46→20:14)
[2020-07-31] MEDS: INSULIN GLARGINE 100 UNITS/ML SQ SCH ×2 (08:46→20:15)
[2020-07-31] MEDS: FUROSEMIDE 40 MG TABLET PO SCH (08:46)
[2020-07-31] MEDS: TRAMADOL HCL 50 MG TAB PO PRN ×2 (08:51→21:58)
--- NOTE | 2020-07-31 14:00 | P.PN ---
Subjective Date of Service: 07/31/20 Primary Care Provider: PCP: Dr. Ramirez Us, Nephro: Dr. Emilia Reyna Cards:none Chief Complaint: NSTEMI, CHF exacerbation Subjective: Improving, Doing well Physical Examination - Vital Signs Temperature: 99.2 F Blood Pressure: 172/69 Pulse: 65 Respirations: 18 Pulse Ox (%): 96 Assessment & Plan Discharge Plan: Home Plan to discharge in: 24 Hours Physician Review Additional Text: Physical exam: Patient alert, cooperative. No significant distress noted. Heart: Regular rate rhythm Lungs: Clear to auscultation Abdomen: Soft, non distended, no pain. Extremities: No focal deficits. No edema noted. Assessment Shortness of breath secondary to acute on chronic systolic CHF with volume overload, EF less than 40%, unknown EF complicated with elevated troponin likely ischemic demand but with abnormal cardiac stress test Anemia of chronic disease with history of upper GI bleed and iron deficiency anemia Acute on chronic kidney disease stage 3 Diabetes mellitus type 2 Hypertension Chronic back pain Diabetic Neuropathy Suspect obstructive sleep apnea Obesity, BMI 37.9 Plan Shortness of breath secondary to acute on chronic systolic CHF with volume overload, EF less than 40%, complicated with elevated troponin likely ischemic demand but with abnormal cardiac stress test: Patient improved with diuresis. Spoke with cardiology. Will discontinue Lasix at this time. Patient on Mucomyst in preparation for heart catheterization. Renal function slightly compromised. Will check with nephrology to maybe give a little bit of fluid tonight in preparation for heart catheterization. If renal function still more abnormal cardiology may only be able to do diagnostic heart catheterization without significant intervention. This will be determined tomorrow with repeat lab work. Will discuss with nephrology. Continue aspirin, statin and metoprolol. LDL well controlled below 70. Likely no need for Lipitor discharge. Patient on DVT prophylaxis-Lovenox. Cardiac stress test shows small focal areas of mild stress-induced ischemia in the anterior wall and inferior lateral wall. Ejection fraction below 40%. Continue with above plan of care. I will turn the service over to the hospitalist team tomorrow. I will go plan of care with him. Anemia of chronic disease with history of upper GI bleed and iron deficiency anemia: Hemoglobin remained stable. Patient sees Gastroenterology as an outpatient. Maintain hemoglobin above 7.0. Continue with iron supplementation. Acute on chronic kidney disease stage 3: Overall stable. Discontinue Lasix. Will discuss with nephrology about giving a little bit of IV fluid tonight in preparation for heart catheterization as renal function creatinine came up slightly. Patient on Mucomyst in preparation for heart catheterization. Diabetes mellitus type 2: Hemoglobin A1c 8.7. Still need to obtain and verify home medication. Continue to adjust Lantus for better control. Continue to adjust medication. Continue monitor Accu-Cheks. Sliding scale in place. Hypertension: Continue metoprolol. Will add hydralazine for better blood pressure control. Will continue to adjust appropriately. Chronic back pain: Continue to provide medication for pain. Diabetic Neuropathy: Continue to provide medication for pain. Suspect Obstructive sleep apnea: Would recommend pulmonology evaluation as an outpatient for sleep study to further evaluate. Obesity, BMI 37.9: Continue to address lifestyle modification education. Time Spent Managing Pts Care (In Minutes): 55
--- NOTE | 2020-07-31 16:19 | CON ---
Date of Consultation: 07/29/2020 Reason For Consultation: Chest pain. History Of Present Illness: A 64-year-old female with history of CHF, diabetes, CKD, chronic constip ation, presented with lower extremity edema and chest pain as well as shortness of breath. Was evalu ated in the emergency room and had a slightly elevated troponin, and stress test showed a finding sug gestive of ischemia. Past Medical History: As outlined above in the HPI. Medications: Refer to reconciliation sheet for detailed list. Allergies: PREGABALIN. Social History: Does not smoke or drink. Does not use any drugs. Review of Systems: All systems reviewed and they were negative except what mentioned in the HPI. Physical Examination: Vital Signs: Reviewed. Head and Neck: Pupils are equal, reactive to light. Intact eye movements. No JVD. No cervical lym phadenopathy. Neck: Supple. Thyroid is not enlarged. Lungs: Clear to auscultation bilaterally. No rhonchi, rales, or crackles. No accessory muscle use. Heart: Regular rate and rhythm. No extra sounds. Abdomen: Soft, nontender. Bowel sounds positive. No organomegaly. No masses or hernia. No rigidi ty or rebound. Extremities: Edema bilaterally. No clubbing, cyanosis. Intact pulses. Skin: No rash. Neurologic: Alert, awake, oriented x3. No acute focal deficits appreciated. Lymph nodes: No cervical or axillary lymphadenopathy. Investigations: Her creatinine is 1.98 and BUN is 41. Troponin 0.24. Nuclear stress test showed sm all focus of mild stress-induced ischemia in the anterior and inferior lateral kerns. Assessment And Plan: 1.Non-ST elevation myocardial infarction with abnormal stress test. Recommend coronary angiogram to further evaluate. The patient is known to have chronic kidney disease and she understands that jacoby nary angiogram with contrast exposure could potentially cause further damage to the kidneys, but give n the risks and benefits of this test, she agreed to the procedure and we will plan to schedule it saturday. Continue to trend troponins and please obtain an echocardiogram. 2.History of congestive heart failure. Obtain an echocardiogram to further evaluate and please make sure the patient is on aspirin and start the patient on Lovenox, high-dose statin, and hold diuretic s for now. /PRESLEY Voice ID: [id number] Report ID: [id number]
[2020-07-31] MEDS: ENOXAPARIN 30 MG/0.3 ML SQ SCH (17:00)
[2020-07-31] MEDS: NA CHLORIDE 0.9% 1,000 ML IV SCH ×2 (18:00→21:56)
--- NOTE | 2020-07-31 18:04 | P.PN ---
Subjective Date of Service: 08/01/20 Primary Care Provider: PCP: Dr. Ramirez Us, Nephro: Dr. Emilia Reyna Cards:none Chief Complaint: NSTEMI, CHF exacerbation Pt feeling well and feels like she is not carrying any more excess fluid. Breathing is normal and she is lying flat in bed. Physical Examination - Vital Signs Temperature: 99.2 F Blood Pressure: 172/69 Pulse: 65 Respirations: 18 Pulse Ox (%): 96 Assessment & Plan Physician Review Additional Text: Problems ROOPA on ckd stage 3 most likely cardiorenal or maybe patients baseline NSTEMI CHF exacerbation Hypertension Plan Pt at baseline kidney function. lasix 40mg po held Gentle ivf hydration overnight to prophylax againts contrast Finish course of mucomyst for contrast nephropathy prophylaxis Blood pressure control--> need to get under control. Metoprolol 25mg bid st arted, as well as hydralazine added Hold any acei arbs at this time until kidney function is more stable CT negative for any obstruction or urinary retention. Will continue to follow.
[2020-07-31] MEDS: HYDRALAZINE HCL 25 MG TABLET PO SCH (20:14)
[2020-07-31] MEDS: ATORVASTATIN 40 MG TAB PO SCH (20:14)
[2020-08-01 06:10] LABS: Potassium 4.2 mmol/L (3.5-5.1)
[2020-08-01] MEDS: METOPROLOL TAR 25 MG TAB PO SCH ×2 (06:21→17:02)
[2020-08-01] MEDS: PANTOPRAZOLE 40MG TABLET PO SCH (06:21)
[2020-08-01] MEDS: INSULIN -REGULAR HUMAN 50 UNIT/0.5 ML ML SQ SCH ×4 (07:30→20:53)
--- NOTE | 2020-08-01 08:48 | TREADPHA ---
DX: CHEST PAIN, SHORTNESS OF BREATH Date of Study: 07/29/2020 Ht: 5' 6 " Wt: 235 lb 0 oz Consulting Physician: LEANDER MEDICATIONS: TYLENOL, ASPIRIN, LASIX, NOVOLIN-R, LOPRESSOR HISTORY: DIABETES MELLITUS, HYPERTENSION. PHYSICIAL EXAMINATION: RESTING B.P.: 168/77 RESTING H.R.: 66 RESTING EKG: NORMAL PROTOCOL: LEXISCAN EXERCISE TIME: 3:30 B.P. AT PEAK STRESS: 141/66 IMPRESSION: LEXISCAN INJECTED. CARDIOLITE INJECTED PER PROTOCOL. SEE NUCLEAR MEDICINE REPORT. NO CHEST PAIN. NO HEADACHE. COMPLAINTS OF NAUSEA. NO SUPRAVENTRIUCLAR TACHYCARDIA OR VENTRICULAR TACHYCARDIA. NO EKG CHANGES WITH LEXISCAN.
--- NOTE | 2020-08-01 08:54 | ECHO ---
HEIGHT: 5 ft 6 in WEIGHT: 235 lb 0 oz DATE OF STUDY: 07/29/[address]: Ruy Finn NP 2-DIMENSIONAL: YES M.MODE: YES DOPPLER: YES COLOR FLOW: YES TDS: NO PORTABLE: NO DEFINITY: NO BUBBLE STUDY: NO DIAGNOSIS: SHORTNESS OF BREATH, NSTEMI, CONGESTIVE HEART FAILURE CARDIAC HISTORY: CATHERIZATION: NO SURGERY: NO PROSTHETIC VALVE: NO PACEMAKER: NO MEASUREMENTS (cm) DIASTOLIC (NORMALS) SYSTOLIC (NORMALS) IVSd 1.3 (0.6-1.2) LA Diam 3.3 (1.9-4.0) LVEF 55% LVIDd 5.4 (3.5-5.7) LVIDs 3.8 (2.0-3.5) %FS 29% LVPWd 1.3 (0.6-1.2) Ao Diam 2.7 (2.0-3.7) 2 DIMENSIONAL ASSESSMENT: RIGHT ATRIUM: NORMAL LEFT ATRIUM: NORMAL RIGHT VENTRICLE: NORMAL LEFT VENTRICLE: NORMAL TRICUSPID VALVE: NORMAL MITRAL VALVE: PULMONIC VALVE: NORMAL AORTIC VALVE: PERICARDIAL EFFUSION: NONE AORTIC ROOT: NORMAL LEFT VENTRICULAR WALL MOTION: NORMAL DOPPLER/COLOR FLOW: SEE BELOW. COMMENTS: NORMAL LEFT VENTRICULAR EJECTION FRACTION 55-60%. NORMAL WALL MOTION. MILD AORTIC AND MITRAL REGURGIATION. TECHNOLOGIST: Fab KILLIAN
[2020-08-01] MEDS: FOLIC ACID 1 MG TABLET PO SCH (09:00)
[2020-08-01] MEDS: INSULIN GLARGINE 100 UNITS/ML SQ SCH ×2 (09:00→20:52)
[2020-08-01] MEDS: HYDRALAZINE HCL 25 MG TABLET PO SCH ×2 (09:00→20:52)
[2020-08-01] MEDS: FERROUS SULFATE 325 MG TAB PO SCH ×2 (09:00→20:52)
[2020-08-01] MEDS: ASPIRIN EC 81 MG TAB PO SCH (09:20)
[2020-08-01] MEDS: ACETYLCYST 20% 800 MG/4 ML VIAL PO SCH (09:21)
[2020-08-01] MEDS ORDERED: HYDRALAZINE HCL 20 MG/ML VIAL IV ONE (10:23)
[2020-08-01] MEDS ORDERED: NA CHLORIDE 0.9% 500 ML ONE (11:05)
[2020-08-01] MEDS ORDERED: HEPARIN 5000 UNIT/ML 1 ML VIAL ONE (12:20)
[2020-08-01] MEDS ORDERED: MIDAZOLAM HCL 2 MG/2 ML INJ ONE (12:20)
[2020-08-01] MEDS ORDERED: FENTANYL CITR 100 MCG/2 ML ONE (12:21)
[2020-08-01] MEDS ORDERED: VERAPAMIL HCL 10 MG/4 ML VIAL IV ONE (12:21)
[2020-08-01] MEDS ORDERED: NITROGLYCERIN/D5W 25 MG/250 ML BTL IV ONE (12:21)
[2020-08-01] MEDS ORDERED: ATROPINE SULF 1 MG/10 ML SYR IV ONE (12:21)
[2020-08-01] MEDS ORDERED: NITROGLYCERIN 100 MCG/ML SYR (for cath lab use only) IV ONE (12:21)
--- NOTE | 2020-08-01 13:19 | OP ---
Date of Procedure: 08/01/2020 Surgeon: EDUARD TABOR Procedure Performed: Selective coronary angiogram. Indications: 1.Non-ST elevation myocardial infarction. 2.Positive stress test. Access: Right radial artery 6-Lebanese closed with TR band. Complications: None. Bleeding: Less than 5 mL. Description Of Procedure: After risks, benefits, and alternatives were explained, the patient agreed to the procedure and signed informed consent. The patient was brought into cardiac catheterization laboratory, prepped and draped in usual sterile fashion. The right radial artery was accessed using pediatric micropuncture kit and placed a 6-Lebanese slender sheath and then took a 5-Lebanese Morral 4 cat heter into the aortic root over a J-wire, engaged the left main and the right coronary artery, and to ok standard views. We removed the catheter and wire and sheath, and placed TR band with good hemosta sis. Findings: 1.Left main is large and normal. 2.LAD; moderate to large with luminal irregularities. No significant disease. 3.Left circumflex; moderate size, no disease. 4.RCA is a large dominant vessel. No significant disease. Impression: Normal coronary arteries. Plan: Medical management for diastolic heart failure. Followup in 4 weeks post discharge. SR/MODL Voice ID: [id number] Report ID: [id number]
[2020-08-01] MEDS ORDERED: REGADENOSON 0.4 MG/5 ML SYR IV ONE (14:14)
[2020-08-01] MEDS ORDERED: LIDOCAINE 1% 20 ML MDV ONE (14:53)
[2020-08-01] MEDS ORDERED: HEPA 1000U/500MLS 2,000 UNIT/1,000 ML BAG IV ONE (14:53)
[2020-08-01] MEDS ORDERED: D5W 1,000 ML with NA BICARB 8.4% 50 MEQ IV SCH ×2 (16:00)
[2020-08-01] MEDS: ENOXAPARIN 30 MG/0.3 ML SQ SCH (16:28)
--- NOTE | 2020-08-01 19:08 | P.PN ---
Subjective Date of Service: 08/01/20 Primary Care Provider: PCP: Dr. Ramirez Us, Nephro: Dr. Emilia Reyna Cards:none Chief Complaint: NSTEMI, CHF exacerbation Pt feeling well and feels like she is not carrying any more excess fluid. Breathing is normal and she is lying flat in bed. Physical Examination - Vital Signs Temperature: 99.2 F Blood Pressure: 172/69 Pulse: 65 Respirations: 18 Pulse Ox (%): 96 Assessment & Plan Physician Review: Patient Assessed, Agree with Above Assessment and Plan Physician Review Additional Text: Problems ROOPA on ckd stage 3 most likely cardiorenal or maybe patients baseline NSTEMI to undergo cardiac cath today CHF exacerbation Hypertension Plan Pt at baseline kidney function. Continue to hold lasix 40mg today Monitor kidney function and blood pressure control. Blood pressure control--> need to get under control. Metoprolol 25mg bid started, as well as hydralazine added Hold any acei arbs at this time until kidney function is more stable Will continue to follow.
[2020-08-01] MEDS: ATORVASTATIN 40 MG TAB PO SCH (20:52)
[2020-08-01] MEDS: TRAMADOL HCL 50 MG TAB PO PRN (20:52)
[2020-08-02] MEDS ORDERED: HYDRALAZINE HCL 20 MG/ML VIAL IV ONE (02:06)
[2020-08-02] MEDS: TRAMADOL HCL 50 MG TAB PO PRN (03:41)
[2020-08-02] MEDS: METOPROLOL TAR 25 MG TAB PO SCH (05:30)
[2020-08-02] MEDS: PANTOPRAZOLE 40MG TABLET PO SCH (05:30)
[2020-08-02 07:33] LABS: Magnesium 2.2 mg/dL (1.8-2.4); Phosphorus 2.5 mg/dL (2.5-4.9); Potassium 4.1 mmol/L (3.5-5.1)
[2020-08-02 07:37] LABS: Absolute Lymphocytes (CBC) 1.3 K/uL (0.7-4.9); Basophils % 0.8 % (0-1.3); MPV 9.2 fL (7.6-11.3); RBC Red Blood Cell Count 4.52 M/uL (3.86-4.86)
[2020-08-02 08:48] VITALS: BP 187/77; TEMP 96.8
--- NOTE | 2020-08-02 09:39 | P.PN ---
Subjective Date of Service: 08/01/20 Patient scheduled for cardiac catheterization. If this is negative then patient should be able to go home. Review of Systems 10-point ROS is otherwise unremarkable Physical Examination - Vital Signs Temperature: 96.8 F Blood Pressure: 187/77 Pulse: 69 Respirations: 16 Pulse Ox (%): 96 - Physical Exam General: Alert, In no apparent distress, Oriented x3 Respiratory: Clear to auscultation bilaterally, Normal air movement Cardiovascular: Regular rate/rhythm, Normal S1 S2, No murmurs Gastrointestinal: Normal bowel sounds, Soft and benign, Non-distended, No tenderness Musculoskeletal: No clubbing, No swelling, No tenderness - Studies Medications List Reviewed: Yes Assessment & Plan - Problems (Diagnosis) (1) Non-STEMI (non-ST elevated myocardial infarction) Current Visit: Yes Status: Acute (2) Chronic kidney disease (CKD) Current Visit: Yes Status: Acute - Plan Plan: 1. Continue with anti-platelet therapy, statin therapy, cardiac medication 2. Repeat renal function in the morning. If this is stable then anticipate discharge 3. Outpatient follow with Cardiology and Nephrology 4. GI and DVT prophylaxis Discharge Plan: Home Plan to discharge in: 48 Hours - Advance Directives Does patient have a Living Will: No Does patient have a Durable POA for Healthcare: No - Code Status/Comfort Care Code Status Assessed: Yes Code Status: Full Code Physician Review: Patient Assessed, Agree with Above Assessment and Plan Critical Care: No Time Spent Managing PTS Care (In Minutes): 35
--- NOTE | 2020-08-02 09:43 | P.DS ---
Discharge Date: 08/02/20 Primary Care Provider: PCP: Dr. Ramirez Us, Nephro: Dr. Emilia Reyna Cards:none Reason for Admission: NSTEMI, CHF exacerbation - Problems (1) Non-STEMI (non-ST elevated myocardial infarction) Current Visit: Yes Status: Acute (2) Chronic kidney disease (CKD) Current Visit: Yes Status: Acute Brief History of Present Illness: Patient is a 64-year-old female came to the hospital with chest discomfort and was found have elevated troponins. she was seen by Cardiology and decision was made to take the cardiac catheterization lab. Patient will be admitted to the hospital for further treatment. Plan do a heart catheterization during hospital stay. Renal functions elevated and will premedicate with medication for renal protection Hospital Course: Patient had a heart catheterization which did not reveal any significant abnormalities. Patient is clinically doing well. We repeated her renal function today in 24 hr after heart catheterization renal function has actually improved. We premedicated with Mucomyst and bicarb drip. Continue the bicarb drip and will go ahead and advanced diet and plan to discharge home later today. Patient is clinically doing well. Outpatient follow with Nephrology Vital Signs/Physical Exam: Temp Pulse Resp BP Pulse Ox 96.8 F 69 16 187/77 H 96 08/02/20 09:38 08/02/20 09:38 08/02/20 09:38 08/02/20 09:38 08/02/20 09:38 General: Alert, In no apparent distress, Oriented x3 Laboratory Data at Discharge: WBC 8.20 K/uL (4.3-10.9) D 08/02/20 06:40 Hgb 9.4 g/dL (12.0-15.0) L 08/02/20 06:40 Hct 30.0 % (36.0-45.0) L 08/02/20 06:40 Plt Count 251 K/uL (152-406) 08/02/20 06:40 PT 12.3 SECONDS (9.5-12.5) 07/28/20 20:35 INR 1.07 07/28/20 20:35 Sodium 142 mmol/L (136-145) 08/02/20 06:40 Potassium 4.1 mmol/L (3.5-5.1) 08/02/20 06:40 BUN 46 mg/dL (7-18) H 08/02/20 06:40 Creatinine 1.77 mg/dL (0.55-1.3) H 08/02/20 06:40 Glucose 239 mg/dL (74-106) H 08/02/20 06:40 Phosphorus 2.5 mg/dL (2.5-4.9) 08/02/20 06:40 Magnesium 2.2 mg/dL (1.8-2.4) 08/02/20 06:40 Total Bilirubin 0.2 mg/dL (0.2-1.0) 07/30/20 06:00 AST 5 U/L (15-37) L 07/30/20 06:00 ALT 14 U/L (12-78) 07/30/20 06:00 Alkaline Phosphatase 87 U/L (45-117) 07/30/20 06:00 Troponin I 0.10 ng/mL (0.0-0.045) H 07/29/20 13:36 Triglycerides 460 mg/dL (<150) H 07/29/20 05:36 Cholesterol 131 mg/dL (<200) 07/29/20 05:36 LDL Cholesterol Direct 57 mg/dL (100-129) L 07/29/20 05:36 HDL Cholesterol 48 mg/dL (40-60) 07/29/20 05:36 Cholesterol/HDL Ratio 2.73 07/29/20 05:36 Lipase 166 U/L (73-393) 07/28/20 20:35 Home Medications: Atorvastatin Calcium [Lipitor] 40 mg PO BEDTIME #30 tab 08/02/20 Ferrous Sulfate [Ferrous Sulfate*] 325 mg PO BID #60 tab 08/02/20 Hydralazine [Apresoline*] 25 mg PO BID #60 tab 08/02/20 Insulin Glargine Human [Lantus*] 13 units SQ BEDTIME ml 08/02/20 Metoprolol Tartrate [Lopressor*] 25 mg PO BID 6AM 6PM #60 tab 08/02/20 Pantoprazole [Protonix Tab*] 40 mg PO DAILYAC #60 tab 08/02/20 traMADol HCL [Ultram*] 50 mg PO Q6H PRN #30 tab 08/02/20 New Medications: Hydralazine [Apresoline*] 25 mg PO BID #60 tab Ferrous Sulfate [Ferrous Sulfate*] 325 mg PO BID #60 tab Atorvastatin Calcium [Lipitor] 40 mg PO BEDTIME #30 tab Metoprolol Tartrate [Lopressor*] 25 mg PO BID 6AM 6PM #60 tab Pantoprazole [Protonix Tab*] 40 mg PO DAILYAC #60 tab traMADol HCL [Ultram*] 50 mg PO Q6H PRN #30 tab PRN Reason: Pain Scale 5-7 (Moderate) Physician Discharge Instructions: OK TO DC IV AND DC HOME FOLLOW-UP WITH PRIMARY CARE PROVIDER IN 1-2 WEEKS FOLLOW-UP WITH Systems Analyst Developer IN 1-2 WEEKS RETURN TO THE ER IF symptoms worsen CALL or TEXT DR. COOK AT [phone] IF ANY QUESTIONS REGARDING HOSPITAL STAY. PLEASE CALL THE FLOOR AT [phone] IF ANY MEDICATION OR NURSING QUESTIONS. Diet: Renal Activity: Fall precautions Followup: NONE,NONE [Primary Care Provider] - Time spent managing pt's care (in minutes): 35
[2020-08-02 09:46] VITALS: O2SAT 96
[2020-08-02] MEDS: ASPIRIN EC 81 MG TAB PO SCH (10:04)
[2020-08-02] MEDS: INSULIN GLARGINE 100 UNITS/ML SQ SCH (10:04)
[2020-08-02] MEDS: HYDRALAZINE HCL 25 MG TABLET PO SCH (10:04)
[2020-08-02] MEDS: FERROUS SULFATE 325 MG TAB PO SCH (10:04)
[2020-08-02] MEDS: FOLIC ACID 1 MG TABLET PO SCH (10:04)
[2020-08-02] MEDS: INSULIN -REGULAR HUMAN 50 UNIT/0.5 ML ML SQ SCH ×2 (10:06→12:14)
--- NOTE | 2020-08-02 18:15 | P.PN ---
Subjective Date of Service: 08/02/20 Primary Care Provider: PCP: Dr. Ramirez Us, Nephro: Dr. Emilia Reyna Cards:none Chief Complaint: NSTEMI, CHF exacerbation Pt feeling well and feels well. Has no complaints. Review of Systems 10-point ROS is otherwise unremarkable Physical Examination - Vital Signs Temperature: 96.8 F Blood Pressure: 187/77 Pulse: 69 Respirations: 16 Pulse Ox (%): 96 - Physical Exam General: Alert, In no apparent distress HEENT: Atraumatic, PERRLA, EOMI Neck: Supple, JVD not distended Respiratory: Clear to auscultation bilaterally, Normal air movement Cardiovascular: Regular rate/rhythm, Normal S1 S2 Capillary refill: <2 Seconds Gastrointestinal: Normal bowel sounds, No tenderness Musculoskeletal: No tenderness Integumentary: No rashes Neurological: Normal speech, Normal tone, Normal affect - Studies Medications List Reviewed: Yes Assessment & Plan Physician Review: Patient Assessed, Agree with Above Assessment and Plan Physician Review Additional Text: Problems ROOPA on ckd stage 3 most likely cardiorenal or maybe patients baseline NSTEMI to undergo cardiac cath today CHF exacerbation Hypertension Plan Pt at baseline kidney function. Clear for discharge. May go home on lasix 20mg po daily Monitor kidney function and blood pressure control. Blood pressure control--> better controlled. Continue to hold any acei arbs at this time until kidney function is more stable Renally clear for discharge. Will continue to follow.
== END 2020-08-02 12:40 | disposition home or self-care (01) | DRG 280 ==
LOC: ER 19:24 → ERHOLD 22:05 → 2ND 07-29 08:44
PROVIDERS: ADMIT Family Medicine; ATTEND Hospitalist
PROC: 4A023N7 Measurement of Cardiac Sampling and Pressure, Left Heart, Percutaneous Approach (ICD-10-PCS; principal; 2020-08-01)
PROC: B2111ZZ Fluoroscopy of Multiple Coronary Arteries using Low Osmolar Contrast (ICD-10-PCS; 2020-08-01)
DX: I21.4 Non-ST elevation (NSTEMI) myocardial infarction (principal); I50.33 Acute on chronic diastolic (congestive) heart failure; I13.0 Hypertensive heart and chronic kidney disease with heart failure and stage 1 through stage 4 chronic kidney disease, or unspecified chronic kidney disease; K92.2 Gastrointestinal hemorrhage, unspecified; N17.9 Acute kidney failure, unspecified; N18.30 Chronic kidney disease, stage 3 unspecified; E11.22 Type 2 diabetes mellitus with diabetic chronic kidney disease; E11.40 Type 2 diabetes mellitus with diabetic neuropathy, unspecified; G89.29 Other chronic pain; M19.90 Unspecified osteoarthritis, unspecified site; M54.9 Dorsalgia, unspecified; D50.9 Iron deficiency anemia, unspecified; K59.09 Other constipation; E66.9 Obesity, unspecified; Z68.37 Body mass index [BMI] 37.0-37.9, adult; Z88.8 Allergy status to other drugs, medicaments and biological substances; Z79.4 Long term (current) use of insulin; Z79.899 Other long term (current) drug therapy; Z90.710 Acquired absence of both cervix and uterus; Z60.2 Problems related to living alone; Z87.891 Personal history of nicotine dependence; Z20.822 Contact with and (suspected) exposure to COVID-19
CPT/HCPCS: 36415; 71045; 74176; 76377; 78452; 80048; 80053; 80061; 80076; 81003; 82728; 82947; 83036; 83540; 83690; 83735; 83880; 84100; 84439; 84443; 84466; 84484; 85025; 85610; 86850; 86900; 86901; 93005; 93017; 93306; 93454; 94010; 96372; 96374; 96375; 99284; A9500; C1893; C9113; J0360; J1644; J1650; J1815; J1940; J2250; J2785; J3010; J3475; J7030; J7040; U0003

== ENCOUNTER 2020-12-03 16:10 | Emergency (ER) | payer OTHER ==
--- OUTSIDE RECORDS SUMMARY | 2020-12-03 16:15 | XMS REPORT | Continuity of Care Document ---
:1955 Author Organization Formerly [facility] t Address [address] [place] [address] Care Team Providers Name Role Phone Maris KERN, O Primary Care Physician Keara ALACNTARA Attending Clinician Unavailable Ramiro KERN Attending Clinician Renaldo KERN Attending Clinician Liliana ALCANTARA Attending Clinician Unavailable Kole KERN Attending Clinician MD POOL SHARIF Attending Clinician Unavailable Hayde BRAND MANAGER Attending Clinician [facility] Attending Clinician Unavailable Collette ALCANTARA Attending Clinician Caron KEENAN Attending Clinician Renaldo KERN Admitting Clinician KOLE Admitting Clinician Unavailable MD POOL SHARIF Admitting Clinician Unavailable Caron KEENAN Admitting Clinician Payers Payer Name Policy Type Policy Effective Date Expiration Source Number Date [id number] 2012 Fidel young [id number] 2011-PresentMe 00:00:00 Me thodist dicaid CIGNA [id number] 2019 [facility] [id number] 2019 -PresentHMO Problems Condition Condition Condition Status Onset Resolution Last Treating Co mments Source Name Details Category Date Date Treatment Clinician Date Chronic Chronic Problem Active [facility] constipati Constipati 6-20 Fa johann on on 00:00: Practic 00 e Ex-cigaret Ex-cigaret Problem Active [facility] te smoker te Smoker 6-20 Fami ly 00:00: Practic 00 e Bilateral Bilateral Problem Active Lary chivo knee pain Knee Pain 6-11 Fami ly 00:00: Practic 00 e Moderate Moderate Problem Active Baires ge recurrent Recurrent 3-25 Fami ly major Major 00:00: Practic depression Depression 00 e Old Old Problem Active [facility] myocardial Myocardial 3-04 [facility] infarction Infarction 00:00: Pr actic 00 e Hypertensi Hypertensi Problem Active 2019-05 [facility] ve heart ve Heart 1-16 Family AND renal and Renal 00:00: Prac tic disease Disease 00 e History of History of Problem Active 2019-05 [facility] cerebrovas Cerebrovas 1-16 johann cular cular 00:00: Practic accident Accident 00 e Hyperglyce Hyperglyce Problem Active 2019-05 [facility] bacilio due to bacilio Due to 1-16 johann 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:00: Practic diabetes Diabetes 00 e mellitus Mellitus Hyperlipid Hyperlipid Problem Active 2019-05 [facility] emia due emia Due 1-16 Family to type 2 to Type 2 00:00: Prac tic diabetes Diabetes 00 e mellitus Mellitus Morbid Morbid Problem Active 2019-05 [facility] obesity Obesity 0-17 Family 00:00: Practic 00 e Chronic Chronic Problem Active 2019-05 [facility] kidney Kidney 0-17 Family disease Disease 00:00: Practic stage 4 Stage 4 00 e Dyslipidem Dyslipidem Problem Active 2019-05 [facility] ia ia 0-16 Family 00:00: Practic 00 e Chronic Chronic Problem Active 2019-05 [facility] diastolic Diastolic 0-16 Fami ly heart Heart 00:00: Practic failure Failure 00 e Hormone Hormone Problem Active 2019-05 [facility] level - Level - 0-16 Family finding Finding 00:00: Practic 00 e Low blood Low Blood Problem Active 2019-05 Lary chivo pressure Pressure 0-15 Family 00:00: Practic 00 e Stage 3 Stage 3 Disease Active 2019-05 [facility] chronic chronic 0-02 [facility] kidney kidney 00:00: st disease disease 00 Chronic Chronic Disease Active 2019-05 [facility] kidney kidney 0-02 [facility] disease, disease, 00:00: st stage 4 stage 4 00 (severe) (severe) Nicotine Nicotine Problem Active Dequan herbert dependence Dependence 7-01 Fa johann 00:00: Practic 00 e Type 2 Type 2 Problem Active [facility] diabetes Diabetes 3-31 Family mellitus Mellitus 00:00: Practi c with with 00 e peripheral Peripheral angiopathy Angiopathy Gout Gout Problem Active 2018-05 [facility] 0-17 Family 00:00: Practic 00 e Allergic Allergic Problem Active 2018-05 Dequan herbert rhinitis Rhinitis 0-17 Family 00:00: Practic 00 e Edema of Edema of Problem Active 2018-05 Dequan ge lower Lower 0-17 Family extremity Extremity 00:00: Prac tic 00 e Long-term Long-term Problem Active 2018-05 Lary waldron current Current 0-17 Family use of Use of 00:00: Practic insulin Insulin 00 e Gastrointe Gastrointe Problem Active [facility] stinal stinal 8-15 Family hemorrhage Hemorrhage 00:00: Pr actic 00 e Chronic Chronic Problem Active [facility] obstructiv Obstructiv 7-13 Fa johann e lung e Lung 00:00: Practic disease Disease 00 e Obstructiv Obstructiv Problem Active [facility] e sleep e Sleep 1-24 Family apnea Apnea 00:00: Practic syndrome Syndrome 00 e Hearing Hearing Problem Active [facility] loss Loss 1-24 Family 00:00: Practic 00 e Asthma Asthma Problem Active [facility] 1-24 Family 00:00: Practic 00 e Cigarette Cigarette Problem Active Lary waldron smoker Smoker 1-24 Family 00:00: Practic 00 e Mixed Mixed Problem Active 2017-05 [facility] hyperlipid Hyperlipid 0-17 Fa johann emia emia 00:00: Practic 00 e Secondary Secondary Problem Active Lary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 Hyperparat 9-25 Fa johann hyroidism hyroidism 00:00: Prac tic 00 e Diabetic Diabetic Problem Active Dequan herbert peripheral Peripheral 9-20 Fa johann neuropathy Neuropathy 00:00: Pr actic 00 e Iron Iron Problem Active [facility] deficiency Deficiency 9-20 Fa johann anemia Anemia 00:00: Practic 00 e Mixed Mixed Problem Active [facility] anxiety Anxiety 9-20 Family and and 00:00: Practic depressive Depressive 00 e disorder Disorder Peripheral Peripheral Problem Active [facility] vascular Vascular 9-20 Family disease Disease 00:00: Practic 00 e Insomnia Insomnia Problem Active Baires ge 7-03 Family 00:00: Practic 00 e Disorder Disorder Problem Active Baires ge of kidney of Kidney 5-24 Fami ly due to Due to 00:00: Practic diabetes Diabetes 00 e mellitus Mellitus Spinal Spinal Problem Active [facility] stenosis Stenosis 5-24 Family 00:00: Practic 00 e Anemia Anemia Problem Active [facility] 5-07 Family 00:00: Practic 00 e Acute pain Acute pain Disease Active [place] both of both 18 [facility] knees knees 00:00: st 00 Primary Primary Disease Active [facility] osteoarthr osteoarthr -18 Me thodi itis of itis of 00:00: st both knees both knees 00 Transient Transient Problem Active Lary chivo cerebral Cerebral 4-11 Family ischemia Ischemia 00:00: Practi c 00 e Body mass Body Mass Problem Active Lary chivo index 30+ Index 30+ 3-29 Fami ly - obesity - Obesity 00:00: Prac tic 00 e Chest pain Chest Pain Problem Active [facility] 3-29 Family 00:00: Practic 00 e Diabetes Diabetes Disease Active [place] mellitus mellitus Method i st Volume Volume Disease Active [facility] overload overload Method i st Hypertensi Hypertensi Disease Active [place] on Methodi st Hyperlipid Hyperlipid Disease Active [facility] emia emia Methodi st Allergies, Adverse Reactions, Alerts Allergy Allergy Status Severity Reaction(s) Onset Inactive Treating Comm ents Source Name Type Date Date Clinician [place] Allergy Active [facility] in to 3-05 Family substanc 00:00: Practic e 00 e [place] Propensi Active [place] in ty to 4-18 [facility] adverse 00:00: st reaction 00 s to drug Lyrica Allergy Active [facility] to Family substanc Practic e e Chantix Allergy Active Other [facility] to Family substanc Practic e e Social History Social Habit Start Date Stop Date Quantity Comments Source Tobacco use and 2017-09-11 2017-09-11 Current user [place] exposure 00:00:00 00:00:00 Alcohol intake 2017-09-11 2017-09-11 Current Joseph Banegas thodist 00:00:00 00:00:00 non-drinker of alcohol (finding) Sex [birth year] Joseph Stoner ethodist 00:00:00 00:00:00 Smoking Status Start Date Stop Date Source Former Smoker Eliana deleon Current every day smoker 2017-09-11 00:00:00 June Soto Medications Ordered Filled Start Stop Current Ordering Indication Dosage Frequency Signature Comments Components Source Medication Medication Date Date Medication? Clinician (SIG) Name Name Veronique Tresiba No 60unit( Q1D Tresiba [facility] FlexTouch FlexTouch 3-25 s) FlexTouch Family U-200 U-200 00:00: U-200 Practic insulin 200 insulin 200 00 insulin e unit/mL (3 unit/mL (3 200 mL) mL) unit/mL (3 subcutaneou subcutaneou mL) s pen s pen subcutaneo Inject 60 Inject 60 us pen units every units every Inject 60 day by day by units sub-q route sub-q route every day at bedtime at bedtime by sub-q for 90 for 90 route at days. days. bedtime for 90 days. atorvastati atorvastati No 40MG atorvastat [facility] n 40 mg n 40 mg 08-02 in 40 mg Famil y tablet 40 tablet 40 00:00: tablet 40 Practic mg by oral mg by oral 00 mg by oral e route. route. route. hydralazine hydralazine No 25MG hydralazin [facility] 25 mg 25 mg 3-09 e 25 mg Family tablet 25 tablet 25 00:00: tablet 25 Practic mg by oral mg by oral 00 mg by oral e route. route. route. gabapentin 2019-05 Yes 1200mg QD Take 1,200 [facility] (NEURONTIN) 0-02 mg by [facility] 600 mg 16:15: mouth st tablet 17 nightly. docusate 2019-05 Yes 100mg QD Take 100 [place] sodium 0-02 mg by [facility] (COLACE) 16:15: mouth st 100 MG 17 nightly. capsule furosemide 2019-05- No 40mg Q.5D Take 1 [place] (LASIX) 40 0-02 03-27 tablet (40 Me thodi mg tablet 00:00: 23:59 mg total) st 00 :00 by mouth 2 (two) times a day for 30 days. hydrALAZINE 2019-05- No 50mg [id number] Take 1 [facility] (APRESOLINE 03-27 [id number] tablet (50 [facility] ) 50 MG 00:00: 23:59 3D mg total) st tablet 00 :00 by mouth 3 (three) times a day for 30 days. diclofenac 2019- No Q.25D Apply [place] (VOLTAREN) 09-11 topically Met hodi 1 % gel 00:00: 00:00 4 (four) st 00 :00 times a day. 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 Method i mg tablet 00:00: 00:00 st 00 :00 traMADol Yes TK 1 T PO [place] (ULTRAM) 50 -19 BID [facility] mg tablet 00:00: st 00 lisinopril 2019- No 40mg QD 40 mg [place] (PRINIVIL,Z 08-12 daily. Metho di ESTRIL) 40 00:00: 00:00 st mg tablet 00 :00 traZODone 2019- No TK 1 T PO [place] (DESYREL) 08-12 QHS [facility] 50 MG 00:00: 00:00 st tablet 00 :00 simvastatin Yes 40mg QD 40 mg [place] (ZOCOR) 20 - nightly. Metho di MG tablet 00:00: st 00 metOLazone 2019- No TK 1 T PO [place] (ZAROXOLYN) 08-02 ONCE D Metho di 2.5 MG 00:00: 00:00 st tablet 00 :00 calcitriol Yes TK 1 C PO [place] (ROCALTROL) 2-15 3 TIMES A Met hodi 0.25 MCG 00:00: WK st capsule 00 amoxicillin 2019- No TK 1 T PO Joseph eaton 06-27 Q 8 H FOR [facility] clavulanate 00:00: 00:00 TEN DAYS s t (AUGMENTIN) 00 :00 500-125 mg per tablet diazePAM 2019- No TK 1 T PO June montgomery (VALIUM) 10 06-24 WHEN [facility] MG tablet 00:00: 00:00 INSTRUCTED s t 00 :00 AT FACILITY. azithromyci 2019- No ZPK [place] n 06-06 [facility] (ZITHROMAX) 00:00: 00:00 st 250 MG 00 :00 tablet albuterol albuterol No albuterol [facility] sulfate HFA sulfate HFA sulfate Family 90 90 HFA 90 Practic mcg/actuati mcg/actuati mcg/actuat e on aerosol on aerosol ion inhaler inhaler aerosol Inhale 2 Inhale 2 inhaler puffs every puffs every Inhale 2 4 hours by 4 hours by puffs inhalation inhalation every 4 route. route. hours by inhalation route. alcohol alcohol No alcohol Vill[facility] e prep pads prep pads prep pads Family 70 % pads 70 % pads 70 % pads Practic e carvedilol carvedilol No carvedilol [facility] 12.5 mg 12.5 mg 12.5 mg Family tablet take tablet take tablet Practic 1 tab po 1 tab po take 1 tab e daily daily po daily clever clever No clever Village choice choice choice Family comfort ez comfort ez comfort ez Practic pen needles pen needles pen e [id number] 32g [id number] 32g needles x 5 mm misc x 5 mm misc [id number] 32g x 5 mm misc Comfort EZ Comfort EZ No Comfort EZ [place] Pen [place] Pen [place] Pen F amily 31 gauge x 31 gauge x [place] 31 Practic 3/16" 3/16" gauge x e 3/16" Dulcolax Dulcolax No 1 Q1D Dulcolax Lary chivo (bisacodyl) (bisacodyl) (bisacodyl Family 5 mg 5 mg ) 5 mg Practic tablet,rodriguez tablet,rodriguez tablet,del e yed release yed release ayed Take 1 Take 1 release tablet tablet Take 1 every day every day tablet by oral by oral every day route. route. by oral route. Merged With [facility] 5 Farxiga 5 No Farxiga 5 Village mg tablet mg tablet mg tablet Family Take 1 Take 1 Take 1 Practic tablet tablet tablet e every day every day every day by oral by oral by oral route. route. route. fluconazole fluconazole No fluconazol [facility] 150 mg 150 mg e 150 mg Family tablet tablet tablet Practic e FreeStyle FreeStyle No FreeStyle [facility] Param 14 Param 14 Param 14 Fam rigoberto Day [place] Day [place] Day [place] Practic e FreeStyle FreeStyle No FreeStyle [facility] Param 14 Param 14 Param 14 Fam rigoberto Day Sensor Day Sensor Day Sensor Practic kit kit kit e furosemide furosemide No 1 Q2D furosemide [facility] 40 mg 40 mg 40 mg Family tablet Take tablet Take tablet Practic 1 tablet 1 tablet Take 1 e every other every other tablet day by oral day by oral every route for route for other day 90 days. 90 days. by oral route for 90 days. gabapentin gabapentin No gabapentin [facility] 600 mg 600 mg 600 mg Family tablet Take tablet Take tablet Practic 1 tablet 3 1 tablet 3 Take 1 e times a day times a day tablet 3 by oral by oral times a route. route. day by oral route. Humalog Humalog No Humalog Vill[facility] e KwikPen KwikPen KwikPen Family (U-100) (U-100) (U-100) Practi c Insulin 100 Insulin 100 Insulin e unit/mL unit/mL 100 subcutaneou subcutaneou unit/mL s Inject 24 s Inject 24 subcutaneo units every units every us Inject day by day by 24 units subcutaneou subcutaneou every day s route s route by before before subcutaneo meals. meals. us route before meals. iron 27 mg iron 27 mg No iron 27 mg [facility] iron tablet iron tablet iron F amily 2 tabs qam, 2 tabs qam, tablet 2 Practic 1 qpm 1 qpm tabs qam, e 1 qpm Linzess 145 Linzess 145 No 1capsul Q1D Linzess [facility] mcg capsule mcg capsule e(s) 145 mcg Family Take 1 Take 1 capsule Practic capsule capsule Take 1 e every day every day capsule by oral by oral every day route. route. by oral route. montelukast montelukast No 1 Q1D montelukas [facility] 10 mg 10 mg t 10 mg Family tablet Take tablet Take tablet Practic 1 tablet 1 tablet Take 1 e every day every day tablet by oral by oral every day route at route at by oral bedtime. bedtime. route at bedtime. Ozempic 1 Ozempic 1 No Ozempic 1 Village mg/dose (2 mg/dose (2 mg/dose (2 Family mg/1.5 mL) mg/1.5 mL) mg/1.5 mL) Practic subcutaneou subcutaneou subcutaneo e s pen s pen us pen injector injector injector Inject 0.25 Inject 0.25 Inject mg SC every mg SC every 0.25 mg SC 1 wk for 1 wk for every 1 wk 4wk, then 4wk, then for 4wk, increase. increase. then to 0.5 mg to 0.5 mg increase. SC every 1 SC every 1 to 0.5 mg wk x4wk, wk x4wk, SC every 1 then september then september wk x4wk, increase to increase to then september 1 mg SC 1 mg SC increase every 1 wk; every 1 wk; to 1 mg SC every 1 wk; pantoprazol pantoprazol No 1 Q1D pantoprazo Village e 40 mg e 40 mg le 40 mg Famil y tablet,rodriguez tablet,rodriguez tablet,del Practic yed release yed release ayed e Take 1 Take 1 release tablet tablet Take 1 every day every day tablet by oral by oral every day route. route. by oral route. pharmacist pharmacist No pharmacist [facility] choice choice choice Family ultra thin ultra thin ultra thin Practic lancets lancets lancets e misc misc misc simvastatin simvastatin No [facility] 40 mg 40 mg n 40 mg Family tablet Take tablet Take tablet Practic 0.5 tablets 0.5 tablets Take 0.5 e every day every day tablets by oral by oral every day route at route at by oral bedtime. bedtime. route at bedtime. spironolact spironolact No spironolac [facility] one 25 mg one 25 mg tone 25 mg Family tablet Take tablet Take tablet Practic 1 tablet 1 tablet Take 1 e every other every other tablet day by oral day by oral every route. route. other day by oral route. tramadol tramadol No tramadol Layr chivo 100 mg 100 mg 100 mg Family tablet Take tablet Take tablet Practic 1 tablet 3 1 tablet 3 Take 1 e times a day times a day tablet 3 by oral by oral times a route as route as day by directed directed oral route for 30 for 30 as days. days. directed for 30 days. Immunizations Ordered Immunization Filled Immunization Date Status Commen ts Source Name Name COVID-19, mRNA, COVID-19, mRNA, 2020-08-08 Completed [facility] age Family LNP-S, PF, 30 mcg/0.3 LNP-S, PF, 30 00:00:00 Practice mL dose mcg/0.3 mL dose COVID-19, mRNA, COVID-19, mRNA, 2020-07-18 Completed [facility] LNP-S, PF, 30 mcg/0.3 LNP-S, PF, 30 00:00:00 Practice mL dose mcg/0.3 mL dose influenza, influenza, 2020-02-25 Completed [facility] unspecified unspecified 00:00:00 Practice formulation formulation FLUCELVAX QUAD PF 2020-02-25 Completed [facility] 00:00:00 [facility] influenza, influenza, 2019-03-12 Completed [facility] recombinant, recombinant, 11:20:00 Practice quadrIvalent,injectab quadrIvalent,injecta le, preservative free ble, preservative free influenza, influenza, 2019-03-12 Completed [facility] unspecified unspecified 00:00:00 Practice formulation formulation Tdap Tdap 2018-06-19 Completed [facility] 14:21:00 Practice influenza, influenza, 2018-02-13 [facility] injectable, injectable, 15:26:00 Practice quadrivalent, quadrivalent, preservative free preservative free pneumococcal pneumococcal 2018-02-13 Completed [facility] polysaccharide PPV23 polysaccharide PPV23 15:25:00 Practice pneumococcal pneumococcal 2017-09-06 Completed [facility] polysaccharide PPV23 polysaccharide PPV23 00:00:00 Practice Vital Signs Vital Name Observation Time Observation Value Comments Source BP Diastolic 2020-11-08 00:00:00 80 mm[Hg] [facility] Height 2020-11-08 00:00:00 66 [in_i] [facility] BMI (Body Mass 2020-11-08 00:00:00 34.5 kg/m2 [place] Index) Practice BP Systolic 2020-11-08 00:00:00 150 mm[Hg] [facility] Body Weight 2020-11-08 00:00:00 214 [lb_av] [facility] BP Diastolic 2020-08-18 00:00:00 70 mm[Hg] [facility] Height 2020-08-18 00:00:00 66 [in_i] [facility] BMI (Body Mass 2020-08-18 00:00:00 36.6 kg/m2 [facility] Index) Practice BP Systolic 2020-08-18 00:00:00 136 mm[Hg] [facility] Body Weight 2020-08-18 00:00:00 227 [lb_av] [facility] BP Diastolic 2020-03-23 00:00:00 61 mm[Hg] [facility] Height 2020-03-23 00:00:00 66 [in_i] [facility] BMI (Body Mass 2020-03-23 00:00:00 37.6 kg/m2 [facility] Index) Practice BP Systolic 2020-03-23 00:00:00 79 mm[Hg] [facility] Body Weight 2020-03-23 00:00:00 233 [lb_av] [facility] Height 2020-03-01 00:00:00 66 [in_i] [facility] BMI (Body Mass 2020-03-01 00:00:00 37.3 kg/m2 [facility] Index) Practice Body Weight 2020-03-01 00:00:00 231 [lb_av] [facility] BP Diastolic 2020-02-18 00:00:00 70 mm[Hg] [facility] Height 2020-02-18 00:00:00 66 [in_i] [facility] BMI (Body Mass 2020-02-18 00:00:00 37.6 kg/m2 [facility] Index) Practice BP Systolic 2020-02-18 00:00:00 130 mm[Hg] [facility] Body Weight 2020-02-18 00:00:00 233 [lb_av] [facility] BP Diastolic 2019-11-24 00:00:00 70 mm[Hg] [facility] Height 2019-11-24 00:00:00 66 [in_i] [facility] BMI (Body Mass 2019-11-24 00:00:00 37.6 kg/m2 [facility] Index) Practice BP Systolic 2019-11-24 00:00:00 136 mm[Hg] [facility] Body Weight 2019-11-24 00:00:00 233 [lb_av] [facility] BP Diastolic 2019-08-12 00:00:00 60 mm[Hg] [facility] Height 2019-08-12 00:00:00 66 [in_i] [facility] BMI (Body Mass 2019-08-12 00:00:00 35.6 kg/m2 [facility] Index) Practice BP Systolic 2019-08-12 00:00:00 120 mm[Hg] [facility] Body Weight 2019-08-12 00:00:00 220.4 [lb_av] [facility] BP Diastolic 2019-03-12 00:00:00 68 mm[Hg] [facility] Height 2019-03-12 00:00:00 66 [in_i] [facility] BMI (Body Mass 2019-03-12 00:00:00 32.4 kg/m2 [facility] Index) Practice BP Systolic 2019-03-12 00:00:00 118 mm[Hg] [facility] Body Weight 2019-03-12 00:00:00 201 [lb_av] [facility] BP Diastolic 2018-12-10 00:00:00 72 mm[Hg] [facility] Height 2018-12-10 00:00:00 66 [in_i] [facility] BMI (Body Mass 2018-12-10 00:00:00 32.1 kg/m2 [facility] Index) Practice BP Systolic 2018-12-10 00:00:00 118 mm[Hg] [facility] Body Weight 2018-12-10 00:00:00 198.8 [lb_av] [facility] BP Diastolic 2018-12-04 00:00:00 74 mm[Hg] [facility] Height 2018-12-04 00:00:00 66 [in_i] [facility] BMI (Body Mass 2018-12-04 00:00:00 32.1 kg/m2 [facility] Index) Practice BP Systolic 2018-12-04 00:00:00 138 mm[Hg] [facility] Body Weight 2018-12-04 00:00:00 198.8 [lb_av] [facility] BP Diastolic 2018-08-13 00:00:00 66 mm[Hg] [facility] Height 2018-08-13 00:00:00 66 [in_i] [facility] BMI (Body Mass 2018-08-13 00:00:00 34.2 kg/m2 [facility] Index) Practice BP Systolic 2018-08-13 00:00:00 118 mm[Hg] [facility] Practice Body Weight 2018-08-13 00:00:00 211.8 [lb_av] [facility] Practice BP Diastolic 2018-06-19 00:00:00 78 mm[Hg] [facility] Practice Height 2018-06-19 00:00:00 66 [in_i] [facility] Practice BMI (Body Mass 2018-06-19 00:00:00 34.8 kg/m2 [facility] Index) Practice BP Systolic 2018-06-19 00:00:00 120 mm[Hg] [facility] Practice Body Weight 2018-06-19 00:00:00 215.4 [lb_av] [facility] Practice Systolic blood 2020-02-26 13:04:00 196 mm[Hg] Alex zarco [facility] pressure Diastolic blood 2020-02-26 13:04:00 92 mm[Hg] [facility] on [facility] pressure Heart rate 2020-02-26 12:13:53 90 /min Joseph Soto Body temperature 2020-02-26 12:13:53 37.28 Geena Cindy ton [facility] Respiratory rate 2020-02-26 12:13:53 18 /min [place] [facility] Oxygen saturation in 2020-02-26 12:13:53 96 /min Joseph Soto Arterial blood by Pulse oximetry Body weight 2020-02-26 05:37:31 106 kg Joseph Nevarezist BMI 2020-02-26 05:37:31 37.72 kg/m2 Joseph Soto Procedures Procedure Date / Time Performing Clinician Source Performed MAMMO, screening, digital, 2020-08-18 00:00:00 [facility] POC GLUCOSE 2020-02-26 12:49:00 Ava Sharif Meth odist XR CHEST 1 VW PORTABLE 2020-02-26 09:58:09 Zack Mccray on [facility] Scott BASIC METABOLIC PANEL 2020-02-26 05:50:00 Zack Mccray [facility] Scott ESTIMATED GFR 2020-02-26 05:50:00 Zack Mccray Meth odmerrick Scott POC GLUCOSE 2020-02-25 16:24:00 Ava Sharif Meth odist POC GLUCOSE 2020-02-25 11:50:00 Ava Sharif Meth odist PARATHYROID HORMONE 2020-02-25 07:59:00 Zack Mccray Scott TOTAL IRON BINDING 2020-02-25 07:59:00 Zack Mccray M ethodist CAPACITY Scott FERRITIN LEVEL 2020-02-25 07:59:00 Zack Mccray Meth odist Scott POC GLUCOSE 2020-02-25 06:12:00 Myke-Kayceegómezq, Casiyeimy Joseph Meth odist POC GLUCOSE 2020-02-24 21:10:00 Al-Kayceechrissy, Ava Ruiz Meth odist XR CHEST 2 VW 2020-02-24 20:15:25 Al-Kayceechrissy, Ava Ruiz Meth odist ECG 12-LEAD 2020-02-24 18:36:35 Myke-Deepika, Ava Ruiz Meth odist URIC ACID LEVEL 2020-02-24 17:48:00 Myke-Ava Poe Meth odist B NATRIURETIC PEPTIDE 2020-02-24 17:48:00 [facility] HC COMPLETE BLD COUNT 2020-02-24 17:48:00 [facility] W/AUTO DIFF COMPREHENSIVE METABOLIC 2020-02-24 17:48:00 [facility] PANEL HEMOGLOBIN A1C 2020-02-24 17:48:00 Myke-Ava Poe Meth odist LIPID PANEL 2020-02-24 17:48:00 Myke-KayceeAva lowe Meth odist MAGNESIUM LEVEL 2020-02-24 17:48:00 Myke-Ava Poe odist PHOSPHORUS LEVEL 2020-02-24 17:48:00 Myke-Ava Poe Met hodmerirck PROTHROMBIN TIME WITH INR 2020-02-24 17:48:00 Al-[facility]va [place] [facility] THYROID STIMULATING 2020-02-24 17:48:00 [facility] HORMONE ESTIMATED GFR 2020-02-24 17:48:00 Ava Sharif Meth odist TTE COMPLETE, WO CONTRAST, 2020-02-24 17:25:00 Al-Ava Poe W DOPPLER ([id number]) POC GLUCOSE 2020-02-24 17:15:00 Al-Ava Poe Meth odist COVID-19 QUALITATIVE 2020-02-24 17:03:00 Ava Sharif [facility] RT-PCR X-RAY OF CHEST 2 VIEW 2020-02-18 00:00:00 [place] Practice CT, chest, w/ contrast 2020-02-18 00:00:00 Dequan herbert [facility] Practice Colonoscopy 2017-07-23 00:00:00 [facility] Fami ly Practice Cholecystectomy (Gall 2017-05-27 00:00:00 [place] Bladder Removal) Practice Total Hysterectomy 2004 00:00:00 [facility] amily Practice Colonoscopy & Polypectomy [facility] Plan of Care Planned Activity Planned Date Details Comments Source Future Scheduled Test 2020-12-25 INFLUENZA VACCINE [place] [facility] 00:00:00 [code = INFLUENZA VACCINE] Future Scheduled Test 2006 BREAST CANCER [place] [facility] 00:00:00 SCREENING [code = BREAST CANCER SCREENING] Future Scheduled Test 2006 COLONOSCOPY [place] [facility] 00:00:00 SCREENING [code = COLONOSCOPY SCREENING] Future Scheduled Test 2006 SHINGLES VACCINES [place] [facility] 00:00:00 (#1) [code = SHINGLES VACCINES (#1)] Future Scheduled Test 1977 Screening for [place] [facility] 00:00:00 malignant neoplasm of cervix (procedure) [code = 324998998] Future Scheduled Test 1974 Hepatitis C [place] [facility] 00:00:00 screening (procedure) [code = 252389749] Future Scheduled Test 1968 COVID-19 VACCINE (1) [place] [facility] 00:00:00 [code = COVID-19 VACCINE (1)] Future Scheduled Test 1966 DIABETES: RETINAL H [facility] 00:00:00 EYE EXAM [code = DIABETES: RETINAL EYE EXAM] Future Scheduled Test 1966 DIABETIC FOOT EXAM [place] [facility] 00:00:00 [code = DIABETIC FOOT EXAM] Future Appointment 2021-01-31 Thelma Moreno, [address] [facility] Family 10:30:00 [facility]; [address], [place] [address] Encounters Start End Encounter Admission Attending Care Care Encounter Source Date/Time Date/Time Type Type Clinicians Facility Department ID 2018-11-18 Outpatient MHBL [id number] BL 09:20:25 2020-11-08 2020-11-08 Maricarmen VFP [place] - [id number] [facility] 00:00:00 00:00:00 Gilda Pollock, Medical - Pract ic MD: [id number] [address], [place] [address] , Ph. 2020-09-06 2020-09-06 Anjel [facility]FP [place] - [id number] [facility] 00:00:00 00:00:00 Ian: Eliana Family [address] [facility] [address], [address], [place] [address] , Ph. 2020-08-18 2020-08-18 Maricarmen VFP [place] - [id number] [facility] 00:00:00 00:00:00 Gilda Pollock, Medical - Pract ic MD: [id number] [address], [address], [place] [address] , Ph. 2020-08-04 2020-08-04 Danielle VFP [place] - [id number] [facility] 00:00:00 00:00:00 Sharp: Eliana Family Natalie [facility] [address], [address], [place] [address] , Ph. 2020-03-23 2020-03-23 Maricarmen VFP [place] - [id number] [facility] 00:00:00 00:00:00 Gilda Pollock, Medical - Pract ic MD: [id number] [address], [address], [place] [address] , Ph. 2020-03-16 2020-03-16 Naziahannah [facility] [place] - [id number] [facility] 00:00:00 00:00:00 Eliana Mcgee Family CM: [id number] Medical - Pract ic Ronda [address], [address], [place] [address] , Ph. 2020-03-15 2020-03-15 Transition Kwame Sarah [id number] 00:00:00 00:00:00 of Care Karlee Gaston [id number] [place] [id number] 2020-03-10 2020-03-14 [facility] Michael Rubio [facility] [id number] 13:01:00 12:50:00 Encounter Umang Macario [id number] [place] [id number] [place] [id number] 2020-03-01 2020-03-01 [facility] [id number] [facility] 00:00:00 00:00:00 [facility], Medical - Pract german MD: [id number] Ish e [facility], [address], [place] [address] , Ph. 2020-02-29 2020-02-29 [facility] [id number] 00:00:00 00:00:00 Everardo [facility] CM: [id number] Medical - Pract ic Ronda VM_HOU_Care e [facility], [address], [place] [address] , Ph. 2020-02-24 2020-02-26 [facility] [id number] [place] 00:00:00 00:00:00 AVA [address] 2020-02-18 2020-02-18 [facility] [id number] [facility] 00:00:00 00:00:00 [facility], Medical - Pract german MD: [id number] Ish e [facility], [address], [place] [address] , Ph. 2019-11-24 2019-11-24 [facility] [id number] [facility] 00:00:00 00:00:00 [facility], Medical - Pract ic MD: [id number] VM_HOU_Brianne e [facility], [address], [place] [address] , Ph. 2019-09-24 2019-09-24 Telephone ROSELYN Lock [id number] 00:00:00 00:00:00 Shreya BAKER [id number] [facility] [id number] [id number] 2019-09-22 2019-09-22 Urgent Pob1, Acute [facility] 1..840.114 [id number] 10:04:43 10:47:56 [facility] [id number] [place] 4.2.7.2.686 Professramakrishna [id number] nal [address] 2019-08-12 2019-08-12 [facility] [place] - [id number] [facility] 00:00:00 00:00:00 [facility], Medical - Pract ic MD: [id number]UN[address] [facility], [address], [place] [address] , Ph. 2019-06-09 2019-06-09 Outpatient [facility] [id number] [facility] 13:30:00 13:30:00 2019-03-12 2019-03-12 [facility] [place] - [id number] [facility] 00:00:00 00:00:00 [facility], Family Practic MD: 9430 [facility] christina Graf [facility] [address], [place] [address] , Ph. 2019-01-12 2019-01-12 Transition Kwame Murdock [id number] 00:00:00 00:00:00 of Care Ashley Gaston [id number] [place] [id number] [id number] 2019-01-08 2019-01-09 Emergency Michael Rubio [facility] 1.2.840. [id number] 14:02:27 18:03:00 Rafael Reardon [id number] [place] 4.2.7.2.686 [place] [id number] 2018-12-10 2018-12-10 Maricarmen VFP [place] - [id number] [facility] 00:00:00 00:00:00 [facility] Adedeemo, Family Practic MD: 9430 Practice - [address] [place], [address], [place] [address] , Ph. 2018-12-04 2018-12-04 Maricarmen [facility]FP [place] - [id number] [facility] 00:00:00 00:00:00 [facility] Adedeemo, Family Practic MD: 94[address] Practice - [address] [place], [address], [place] [address] , Ph. 2018-08-13 2018-08-13 Maricarmen VFP [place] - [id number] [facility] 00:00:00 00:00:00 [facility] Adedeemo, Family Practic MD: [address] Practice - [address] [place], [address], [place] [address] , Ph. 2018-06-19 2018-06-19 Maricarmen [facility]FP [place] - [id number] [facility] 00:00:00 00:00:00 [facility] Maris, Family Practic MD: [address] Practice - [address] [place], [address], [place] [address] , Ph. Results Test Description Test Time Test Comments Results Result [facility] e Comments XR Chest 1 [facility] [address] 09:59:21 - 02/26/2020 10:02 AM CDT EXAMINATION: XR CHEST 1 PORTABLECLINICAL HISTORY: comparison to previousCOMPARISON: 02/24/2020 chestIMPRESSION:No acute abnormality single view chest. No change compared to previous considering for positional differencesNo infiltrate congestion or effusionThere is no pneumothoraxThe cardiomediastinal silhouette is normal in size. Mild vascular ectasia with atherosclerosis aorta.Mild degenerative changes thoracic [id number] ECG 12 lead 2020-02-25 12:24:05 Test Item Value Reference Range Interpretation Comme nts Ventricular rate (test code = 253) 93 Atrial rate (test code = 255) 93 IL interval (test code = 266) 148 QRSD interval (test code = 260) 88 QT interval (test code = 264) 392 QTC interval (test code = 265) 487 P axis 1 (test code = 267) 81 QRS axis 1 (test code = 268) 70 T wave axis (test code = 270) 85 EKG impression (test code = 273) Normal sinus rhythm-Normal ECG-No previous ECGs available- Joseph SalehYoqxtsjckBJKK-XrR-7 (COVID-19) RNA [Presence] in Respiratory specimen by SUE with probe [id number] 23:44:11 Test Item Value Reference Range Interpretation Comments SARS-CoV-2 (COVID-19) RNA Not detected Not-Detected [Presence] in Respiratory specimen by SUE with probe detection (test code = 06209-7) Transthoracic Echocardiogram Complete, (w Contrast, Strain and 3D if needed) 2020-02-24 20:50:33 Test Item Value Reference Range Interpretation Comments AoV Area, Vmax (test 1.73 cm2 code = 2098213560) AoV Area, VTI (test 2.35 cm2 code = 5368124355) AoV Mean PG (test code 10.66 mmHg = 7229249933) AoV Peak PG (test code 19.56 mmHg = 9087853366) AoV Vmax (test code = 2.21 m/s 2471953300) AoV VTI (test code = 0.41 m 5777352080) BSA Moore (test code = 2.33 m2 9428434890) BSA (test code = 2.17 m2 3873533759) IVS,d (test code = 1.78 cm 1752428922) IVS/LVPW,2D (test code 1.05 = 5956845531) LV,d (test code = 4.97 cm 1976985094) LV EF,2D (test code = 64.30 % 2233320066) LV EF,A2C (test code = 53.13 % 0808989695) LV EF,A4C (test code = 49.79 % 3538135405) LV EF,BP (test code = 51.24 % 5825188769) García [place],d A2C (test 7.59 cm code = 6051177294) García [place],d A4C (test 7.60 cm code = 4906395155) García [place],s A2C (test 6.80 cm code = 4628955484) García [place],s A4C (test 6.92 cm code = 1717047264) LV,s (test code = 3.53 cm 4751430953) LV SV,A2C (test code = 35.74 % 0735931030) LV SV,A4C (test code = 51.91 % 1561410442) LV SV,BP (test code = 42.91 % 2068790118) LV Vol,d A2C (test code 67.28 mL = 0826863375) LV Vol,d A4C (test code 104.25 ml = 3323877703) LV Vol,d BP (test code 83.73 ml = 2742315206) LV Vol,s A2C (test code 31.54 mL = 8990968993) LV Vol,s A4C (test code 52.34 ml = 5789106302) LV Vol,s BP (test code 40.82 nl = 9034598970) LVOT area (test code = 4.01 cm2 2751398421) LVOT Diam,S (test code 2.26 cm = 3366288455) LVOT Vmax (test code = 0.95 m/s 4796083871) LVOT VTI (test code = 0.24 m 3827991976) LVPWD,d (test code = 1.70 cm 1132429126) AR Press Half Time 256.06 ms (test code = 5891954595) MV E A ratio (test code 0.59 = 8717846234) AoV area i VTI BSA 1.08 cm2/m2 Nabb (test code = 6340107114) LV SI MOD BP BSA Nabb 19.82 ml/m2 (test code = 7710453829) LV Vol Index s bpmod 38.67 ml/m2 BSA Cristiane (test code = 5961868529) PV Vmn (test code = 18.85 m/s 9987017157) MR Vmax (test code = 6.61 m/s 8707328199) MR peak grad (test code 168.96 mmHg = 9043774870) BMI (test code = 38.90 kg/m2 5539816533) E wave decelartion time 150.89 msec (test code = 0668606883) MV Peak A Fan (test 1.36 m/s code = 9562120055) MV valve area p 1/2 5.03 cm2 method (test code = 0178721389) MV Peak E Fan (test 0.81 m/s code = 2501732659) MV stenosis pressure 43.76 ms 1/2 time (test code = 5747216239) AV LVOT peak gradient 3.62 mmHg (test code = 7296267024) LV SYS VOL (test code = 51.80 ml 6177850942) LV MOORE VOL (test code 116.66 ml = 5321921647) LA area s A4C (test 20.87 cm2 code = 1158717793) LV SI Teich 2D (test 29.96 ml/m2 code = 7617914788) LV SV Teich 2D (test 64.86 ml code = 8740738320) LV Vol s Teich PSAX 51.80 ml (test code = 5847596287) LVOT SI (test code = 44.42 ml/m2 3196754908) BSA Haycock (test code 2.31 m2 = 5399506357) AoV Cusp sep (test code 1.75 = 9699223985) AoV Vmn (test code = 1.54 4851614566) IVS s 2D (test code = 2.35 0413267623) LV FS Teich 2D (test 29.06 code = 6427021563) MV AE ratio (test code 1.69 = 6936353972) AR slope (test code = 4.73 2029820811) Ar Vmax (test code = 4.18 2546697459) LA Ao Ratio Mmode (test 1.59 code = 6715659009) LV FS Cube 2D (test 29.06 code = 2346111014) LVOT Vmn (test code = 0.64 6694592035) Pt Size (test code = 167.64 4224252264) Pt Wt (test code = 109.32 4943578325) PV AT (test code = 88.49 msec 0044726449) Aov area Vmn (test code 1.67 cm2 = 5277877506) LVOT mean grad (test 1.82 mmHg code = 1540190176) AoV area I VMN bsa 0.77 cm2/m2 (test code = 3811561934) AR DT (test code = 882.98 msec 7287490176) AR pk grad (test code = 69.92 mmHg 6096838655) IVS pct thck PLAX (test 31.64 % code = 2813576444) LV SI Cube 2D (test 36.48 ml/m2 code = 9570411889) LV SV Cube 2D (test 78.99 ml code = 8306988152) LV vol d cube 2D (test 122.85 ml code = 6838198079) LV vol s cube 2D (test 43.86 ml code = 1408766882) LVPW pct thck PLAX 29.49 % (test code = 8306436121) LVPW s PLAX (test code 2.21 cm = 7303365913) MV Decel slope (test 5.34 m/s2 code = 2954986881) LA Vol MOD A4C (test 57.18 ml code = 0818962948) Velocity Ratio (V1/V2) 0.43 m/s (test code = 4689) EF (test code = 55.60 % 3901705034) E/A ratio (test code = 0.60 6361946148) LV Systolic Volume 14.53 mL/m2 Index (test code = 1419407999) LV Diastolic Volume 31.00 mL/m2 Index (test code = 7305120530) LA Volume Index (test 28.41 mL/m2 code = 2387254043) RA pressure (test code 5.00 mmHg = 3546054069) LA Vol 4C (test code = 57.00 ml 0068629836) LA diam s (test code = 4.20 cm 4371630959) Aortic Root (test code 2.67 cm = 8543315991) AR maxPG (test code = 69.92 0086132257) D E excurs (test code = 1.40 1769240429) E f slope (test code = 0.08 1194017750) E prime lat (test code 0.07 = 0049158445) E ksenia sept (test code 0.07 = 3504007765) PV acc T slope (test 9.20 code = 6389325287) ARMENTA BP EF (test 51.00 % code = 8117607458) LA VOL 2C (test code = 43.00 ml 9279263406) PAT (test code = PAT) Left ventricular systolic function is normal. There is mild left ventricular concentric hypertrophy. Left Ventricular ejection fraction is 50 - 55%. Left atrium size is mildly dilated. Unable to assess diastolic filling. [facility] 2 [id number] 20:16:11Hm Interface, Radiology Results - 02/24/2020 8:19 PM CDT EXAMINATION: XR CHEST 2 VWCLINICAL HISTORY: 64 years Female volume overload ckdCOMPARISON: None.IMPRESSION:The cardiomediastinal silhouette is not enlarged The lungs are clear The osseous structures are within normal limits...[facility] [id number] 18:51:00 Test Item Value Reference Range Interpretation Comments hematocrit (test code = hematocrit) 30.4 % 35.0-45.0 [facility]/volume] in [id number] 18:51:00 Test Item Value Reference Range Interpretation Comments hemoglobin (test code = hemoglobin) 9.4 g/dL 11.7-15.5 L [facility] (dipstick) panel - [id number] 13:48:00 Test Item Value Reference Range Interpretation Comments Color Color (test code = Color yellow Color) Color Appearance (test code = Color clear Appearance) Color Glucose (test code = Color negative Glucose) Color Bilirubin (test code = Color negative Bilirubin) Color Ketones (test code = Color negative Ketones) Color Specific Cameron (test code = 1.020 Color Specific Cameron) Color Blood (test code = Color negative Blood) Color PH (test code = Color PH) 5.5 Color Protein (test code = Color negative Protein) Color Urobilinogen (test code = 0.2 Color Urobilinogen) Color Nitrites (test code = Color negative Nitrites) Color Leukocytes (test code = Color negative Leukocytes) [facility]dipstick) panel - [id number] 13:48:00 Test Item Value Reference Range Interpretation Comments Color Color (test code = Color yellow Color) Color Appearance (test code = Color clear Appearance) Color Glucose (test code = Color negative Glucose) Color Bilirubin (test code = Color negative Bilirubin) Color Ketones (test code = Color negative Ketones) Color Specific Cameron (test code = 1.020 Color Specific Cameron) Color Blood (test code = Color negative Blood) Color PH (test code = Color PH) 5.5 Color Protein (test code = Color negative Protein) Color Urobilinogen (test code = 0.2 Color Urobilinogen) Color Nitrites (test code = Color negative Nitrites) Color Leukocytes (test code = Color negative Leukocytes) [facility]
[2020-12-03 17:56] LABS: Hematocrit 35.3 % (36.0-45.0); MPV 9.6 fL (7.6-11.3)
[2020-12-03] MEDS ORDERED: TRAMADOL HCL 50 MG TAB ONE (18:02)
--- NOTE | 2020-12-03 18:49 | ER ---
Nurse's Notes [facility] Name: Campos Odonnell Age: 65 yrs Sex: Female : 1955 Arrival Date: 12/03/2020 Time: 16:15 Bed 20 Private MD: Diagnosis: Gout, unspecified Presentation: 12/03 16:21 Chief complaint: Patient states: Pain on R index finger x 3 - 4 days. Swelling on R ca1 index 2 - 3 days. Denies injury. Coronavirus screen: Client denies travel out of the [place] in the last 14 days. At this time, the client does not indicate any symptoms associated with coronavirus-19. Ebola Screen: Patient negative for fever greater than or equal to 101.5 degrees Fahrenheit, and additional compatible Ebola Virus Disease symptoms Patient denies exposure to infectious person. Patient denies travel to an Ebola-affected area in the 21 days before illness onset. No symptoms or risks identified at this time. Initial Sepsis Screen: Does the patient meet any 2 criteria? No. Patient's initial sepsis screen is negative. Does the patient have a suspected source of infection? No. Patient's initial sepsis screen is negative. Risk Assessment: Do you want to hurt yourself or someone else? Patient reports no desire to harm self or others. Onset of symptoms was December 03, 2020. 16:21 Method Of Arrival: Wheelchair ca1 16:21 Acuity: [place] 4 ca1 Historical: - Allergies: 16:23 Lyrica; ca1 - PMHx: 16:23 Diabetes - IDDM; ESRD; Hypertension; ca1 - Immunization history:: Client reports receiving the 2nd dose of the Covid vaccine, Client reports receiving the 1st dose of the Covid vaccine, Pneumococcal vaccine is up to date, Flu vaccine is up to date. - Social history:: Smoking status: Patient/guardian denies using tobacco, the patient reports quitting approximately 1 years ago. Screenin:25 Abuse screen: Denies threats or abuse. Nutritional screening: No deficits noted. rb3 Tuberculosis screening: No symptoms or risk factors identified. Fall Risk None identified. Assessment: 16:25 General: Appears in no apparent distress. Behavior is calm, cooperative, Reports fever rb3 for last night. Woke up and her bed sheets were wet.. Pain: Complains of pain in right hand Pain currently is 3 out of 10 on a pain scale. Pain began 4-5 days ago. Neuro: Level of Consciousness is awake, alert, obeys commands, Oriented to person, place, time, situation. Cardiovascular: Patient's skin is warm and dry. Respiratory: Airway is patent Respiratory effort is even, unlabored, Respiratory pattern is regular, symmetrical. GI: No signs and/or symptoms were reported involving the gastrointestinal system. : No signs and/or symptoms were reported regarding the genitourinary system. Musculoskeletal: Range of motion: limited in right hand Swelling present in right hand pt reports that the right elbow is swollen as well. 16:25 General: Pt denies injury. Reports that she was playing a game when she noticed the rb3 pain.. 17:44 Reassessment: pt refused Tramadol, reports she takes it at home and it doesn't work. jl7 ERD notified, no new orders received at this time. 18:10 Reassessment: Patient appears in no apparent distress at this time. Patient and/or rb3 family updated on plan of care and expected duration. Pain level reassessed. Patient is alert, oriented x 3, equal unlabored respirations, skin warm/dry/pink. Vital Signs: 16:21 BP 154 / 83; Pulse 80; Resp 18 S; Temp 97.6(TE); Pulse Ox 99% on R/A; Weight 93.89 kg ca1 (R); Height 5 ft. 6 in. (167.64 cm) (R); Pain 3/10; 17:30 BP 149 / 82; Pulse 74; Resp 19; Pulse Ox 99% ; rb3 18:30 BP 148 / 77; Pulse 71; Resp 17; Pulse Ox 100% ; rb3 16:21 Body Mass Index 33.41 (93.89 kg, 167.64 cm) ca1 ED Course: 16:15 Patient arrived in ED. bp1 16:22 Triage completed. ca1 16:23 Arm band placed on right wrist. ca1 16:25 Patient has correct armband on for positive identification. Bed in low position. Call rb3 light in reach. Side rails up X 1. Pulse ox on. NIBP on. 16:28 Arely Elliott, MARICRUZ is Primary Nurse. rb3 16:30 Quincy Felton MD is Attending Physician. tw4 16:43 Adult w/ patient. Warm blanket given. mh5 17:42 Initial lab(s) drawn, by mt, sent to lab. Inserted saline lock: 22 gauge in left hand, ca1 using aseptic technique. Blood collected. 19:21 No provider procedures requiring assistance completed. IV discontinued, intact, rb3 bleeding controlled, No redness/swelling at site. Pressure dressing applied. Administered Medications: 17:15 Drug: SOLU-Medrol (methylPrednisoLONE) 125 mg Route: IVP; Site: left hand; rb3 19:21 Follow up: Response: Medication administered at discharge. rb3 17:15 Drug: [place] (HYDROcodone-acetaminophen) 5 mg-325 mg 1 tabs Route: PO; rb3 19:21 Follow up: Response: Medication administered at discharge. rb3 17:42 Not Given (Patient Refused): traMADol 50 mg PO once; RASS on ADMIN: Combtv4, Very jl7 Agttd3, Agttd2, Rstlss1, AlertClm0, Drwsy-1, Lt Sdtn-2, Mod Sdtn-3, Dp Sdtn-4, UnArsble-5 Outcome: 18:48 Discharge ordered by . 4 19:21 Discharged to home via wheelchair, with friend. rb3 19:21 Condition: stable 19:21 Discharge instructions given to patient, Instructed on discharge instructions, follow up and referral plans. medication usage, Demonstrated understanding of instructions, follow-up care, medications, Prescriptions given X 1. 19:34 Patient left the ED. rr5 Signatures: Graciela Mar [facility] Richard Buckley RN RN jl7 Quincy Felton MD MD 4 Farhat Cr RN RN rr5 Anabel Shine RN RN ca1 Anum Lerma Rebecca RN RN rb3
--- NOTE | 2020-12-03 18:49 | EDPHYS ---
Physician Documentation [facility] Name: Campos Odonnell Age: 65 yrs Sex: Female : 1955 Arrival Date: 12/03/2020 Time: 16:15 Bed 20 Private MD: MAURISIO Physician Quincy Felton HPI: 12/03 17:31 This 65 yrs old Black Female presents to ER via Wheelchair with complaints of Hand tw4 Swelling. 17:31 The patient or guardian reports pain. The complaints affect the MCP of right index tw4 finger. Context: The problem was sustained at home. Onset: The symptoms/episode began/occurred 4 day(s) ago. Modifying factors: The symptoms are alleviated by nothing, the symptoms are aggravated by nothing. Associated signs and symptoms: The patient has no apparent associated signs or symptoms. The patient has not experienced similar symptoms in the past. Historical: - Allergies: 16:23 Lyrica; ca1 - PMHx: 16:23 Diabetes - IDDM; ESRD; Hypertension; ca1 - Immunization history:: Client reports receiving the 2nd dose of the Covid vaccine, Client reports receiving the 1st dose of the Covid vaccine, Pneumococcal vaccine is up to date, Flu vaccine is up to date. - Social history:: Smoking status: Patient/guardian denies using tobacco, the patient reports quitting approximately 1 years ago. ROS: 17:31 Constitutional: Negative for fever, chills, and weight loss, Eyes: Negative for injury, tw4 pain, redness, and discharge, Cardiovascular: Negative for chest pain, palpitations, and edema, Respiratory: Negative for shortness of breath, cough, wheezing, and pleuritic chest pain, Abdomen/GI: Negative for abdominal pain, nausea, vomiting, diarrhea, and constipation, Back: Negative for injury and pain. 17:31 MS/extremity: Positive for injury or acute deformity, pain, swelling, tenderness. Exam: 17:31 Constitutional: This is a well developed, well nourished patient who is awake, alert, tw4 and in no acute distress. Head/Face: Normocephalic, atraumatic. Chest/axilla: Normal chest wall appearance and motion. Nontender with no deformity. No lesions are appreciated. Cardiovascular: Regular rate and rhythm with a normal S1 and S2. No gallops, murmurs, or rubs. Normal PMI, no JVD. No pulse deficits. Respiratory: Lungs have equal breath sounds bilaterally, clear to auscultation and percussion. No rales, rhonchi or wheezes noted. No increased work of breathing, no retractions or nasal flaring. Abdomen/GI: Soft, non-tender, with normal bowel sounds. No distension or tympany. No guarding or rebound. No evidence of tenderness throughout. 17:31 Musculoskeletal/extremity: Extremities: noted in the dorsal aspect of proximal phalanx of right index finger: erythema, pain, swelling, tenderness. Vital Signs: 16:21 BP 154 / 83; Pulse 80; Resp 18 S; Temp 97.6(TE); Pulse Ox 99% on R/A; Weight 93.89 kg ca1 (R); Height 5 ft. 6 in. (167.64 cm) (R); Pain 3/10; 17:30 BP 149 / 82; Pulse 74; Resp 19; Pulse Ox 99% ; rb3 18:30 BP 148 / 77; Pulse 71; Resp 17; Pulse Ox 100% ; rb3 16:21 Body Mass Index 33.41 (93.89 kg, 167.64 cm) ca1 MDM: 18:48 Patient medically screened. tw4 18:49 Differential diagnosis: dislocation, open fracture, closed fracture, contusion, tw4 abrasion. Data reviewed: vital signs, nurses notes, lab test result(s), cardiac enzymes, electrolytes. Special discussion: I discussed with the patient/guardian in detail that at this point there is no indication for admission to the hospital. It is understood, however, that if the symptoms persist or worsen the patient needs to return immediately for re-evaluation. 12/03 16:40 Order name: Uric Acid; Complete Time: 18:03 tw4 12/03 16:40 Order name: CBC w/o diff; Complete Time: 18:03 tw4 Administered Medications: 17:15 Drug: SOLU-Medrol (methylPrednisoLONE) 125 mg Route: IVP; Site: left hand; rb3 19:21 Follow up: Response: Medication administered at discharge. rb3 17:15 Drug: [place] (HYDROcodone-acetaminophen) 5 mg-325 mg 1 tabs Route: PO; rb3 19:21 Follow up: Response: Medication administered at discharge. rb3 17:42 Not Given (Patient Refused): traMADol 50 mg PO once; RASS on ADMIN: Combtv4, Very jl7 Agttd3, Agttd2, Rstlss1, AlertClm0, Drwsy-1, Lt Sdtn-2, Mod Sdtn-3, Dp Sdtn-4, UnArsble-5 Disposition Summary: 12/03/20 18:48 Discharge Ordered Location: Home tw4 Problem: new tw4 Symptoms: have improved tw4 Condition: Stable tw4 Diagnosis - Gout, unspecified tw4 Followup: tw4 - With: Private Physician - When: Upon discharge from the Emergency Department - Reason: Recheck today's complaints, Continuance of care, Re-evaluation by your physician Discharge Instructions: - Discharge Summary Sheet tw4 - Gout tw4 - Low-Purine Eating Plan tw4 Forms: - Medication Reconciliation Form tw4 - Thank You Letter tw4 - Antibiotic Education tw4 - Prescription Opioid Use tw4 Prescriptions: - Medrol ([place]) 4 mg Oral Tablets, Dose Pack - take 1 tablet by ORAL route as directed - follow package instructions; 1 tw4 packet; Refills: 0, Product Selection Permitted Signatures: Dispatcher [employer] Quincy Moraes MD MD tw4 Anabel Shine RN RN ca1 Arely Elliott RN RN rb3 Richard Buckley RN jl7
[2020-12-03] MEDS ORDERED: METHYLPREDNISOLONE 125 MG INJ ONE (19:29)
[2020-12-03] MEDS ORDERED: HYDROCODONE/APAP 5/325 MG TAB ONE (19:29)
[2020-12-03 19:39] VITALS: TEMP 97.6
[2020-12-03 19:43] VITALS: BP 148/77; O2SAT 100
== END 2020-12-03 19:34 | disposition home or self-care (01) ==
LOC: ER 16:10
DX: M10.9 Gout, unspecified (principal); E11.22 Type 2 diabetes mellitus with diabetic chronic kidney disease; I12.0 Hypertensive chronic kidney disease with stage 5 chronic kidney disease or end stage renal disease; N18.6 End stage renal disease; Z88.8 Allergy status to other drugs, medicaments and biological substances
CPT/HCPCS: 36415; 84550; 85027; 96374; 99284; J2930

== ENCOUNTER 2021-04-14 12:35 | Emergency (ER) | payer OTHER ==
--- OUTSIDE RECORDS SUMMARY | 2021-04-14 12:43 | XMS REPORT | Continuity of Care Document ---
:1955 Author Organization [facility] t Address [address] [place] [address] Care Team Providers Name Role Phone Mike Attending Clinician Unavailable Kidane_A Attending Clinician Unavailable Adejumo_K Attending Clinician Unavailable Herbie BROWN Attending Clinician Unavailable Keara ALCANTARA Attending Clinician Unavailable Ramiro KERN Attending Clinician Renaldo KERN Attending Clinician DALLAS Attending Clinician Unavailable MD POOL HAYNES Attending Clinician Unavailable Anene DINKEY LOCOMOTIVE ENGINEER Attending Clinician [address] Attending Clinician Unavailable Herbie Viramontes MD Attending Clinician Herbie VIRAMONTES Attending Clinician Unavailable Collette ALCANTARA Attending Clinician Caron KEENAN Attending Clinician Mike Admitting Clinician Unavailable Kidane_A Admitting Clinician Unavailable Adejumo_K Admitting Clinician Unavailable Renaldo KERN Admitting Clinician DALLAS Admitting Clinician Unavailable MD POOL HAYNES Admitting Clinician Unavailable Caron KEENAN Admitting Clinician Payers Payer Name Policy Type Policy Number Effective Date Expiration Date Nessa lino FuzmoVIOLA [id number] 2019 (MEDICARE 00:00:00 REPLACEMENT/ADVANTAG E - HMO) TRANSACT RX (MOVED [id number]) Kanari [id number] 2016 00:00:00 MEDICAID OF [place] [id number] 2016 00:00:00 Problems Condition Condition Condition Status Onset Resolution Last Treating Co mments Source Name Details Category Date Date Treatment Clinician Date Chronic Chronic Problem Active 2020-05 [facility] kidney Kidney 0-29 Family disease Disease 00:00: Practic stage 2 Stage 2 00 e Microalbum Microalbum Problem Active 2020-05 [facility] inuria inuria 0-29 Family 00:00: Practic 00 e Hypertensi Hypertensi Problem Active [facility] ve heart ve Heart 7- Family and renal and Renal 00:00: Prac tic disease Disease 00 e with with (congestiv (Congestiv e) heart e) Heart failure Failure History of History of Problem Active [facility] transient Transient 12-19 Fami ly ischemic Ischemic 00:00: Practi c attack Attack 00 e Mild Mild Problem Active [facility] intermitte Intermitte 7-20 Fa johann nt asthma nt Asthma 00:00: Prac tic 00 e Chronic Chronic Problem Active [facility] constipati Constipati 6-20 Fa johann on on 00:00: Practic 00 e Ex-cigaret Ex-cigaret Problem Active [facility] te smoker te Smoker 6-20 Fami ly 00:00: Practic 00 e Bilateral Bilateral Problem Active [facility] chiov knee pain Knee Pain 6-11 Fami ly 00:00: Practic 00 e Moderate Moderate Problem Active [facility] recurrent Recurrent 3-25 Fami ly major Major 00:00: Practic depression Depression 00 e Old Old Problem Active [facility] myocardial Myocardial 3-04 Fa johann infarction Infarction 00:00: Pr actic 00 e History of History of Problem Active 2019-05 [facility] cerebrovas Cerebrovas 1-16 Fa johann cular cular 00:00: Practic accident Accident 00 e Hyperglyce Hyperglyce Problem Active 2019-05 [facility] bacilio due to bacilio 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 00 e mellitus Mellitus Hyperlipid Hyperlipid Problem Active 2019-05 [facility] emia due emia Due 1-16 Family to type 2 to Type 2 00:00: Prac tic diabetes Diabetes 00 e mellitus Mellitus Morbid Morbid Problem Active 2019-05 [facility] obesity Obesity 0-17 Family 00:00: Practic 00 e Chronic Chronic Problem Active 2019-05 [facility] kidney Kidney 0-17 Family disease Disease 00:00: Practic stage 4 Stage 4 00 e ROOPA (acute ROOPA (acute Disease Active 2019-05 [facility]ivers kidney kidney 0-17 ity of injury) injury) 00:00: [place] 00 [facility] Branch Dyslipidem Dyslipidem Problem Active 2019-05 [facility] ia ia 0-16 Family 00:00: Practic 00 e Chronic Chronic Problem Active 2019-05 [facility] diastolic Diastolic 0-16 Fami ly heart Heart 00:00: Practic failure Failure 00 e Hormone Hormone Problem Active 2019-05 [facility] level - Level - 0-16 Family finding Finding 00:00: Practic 00 e Essential Essential Disease Active 2019-05 Uni vers hypertensi hypertensi 0-16 it y of on on 00:00: [place] 00 Medical Branch Type 2 Type 2 Disease Active 2019-05 [facility] diabetes diabetes 0-16 ity of mellitus mellitus 00:00: [place] with other with other 00 Me dical specified specified Bran ch complicati complicati on on Low blood Low Blood Problem Active 2019-05 [facility] waldron pressure Pressure 0-15 Family 00:00: Practic 00 e Nicotine Nicotine Problem Active [facility] dependence Dependence 7-01 Fa johann 00:00: Practic 00 e Type 2 Type 2 Problem Active [facility] diabetes Diabetes 3-31 Family mellitus Mellitus 00:00: Practi c with with 00 e peripheral Peripheral angiopathy Angiopathy Gout Gout Problem Active 2018-05 [facility] 0-17 Family 00:00: Practic 00 e Edema of Edema of Problem Active 2018-05 [facility] lower Lower 0-17 Family extremity Extremity 00:00: Prac tic 00 e Long-term Long-term Problem Active 2018-05 [facility]ary chivo current Current 0-17 Family use of Use of 00:00: Practic insulin Insulin 00 e Gastrointe Gastrointe Problem Active [facility] stinal stinal 8-15 Family hemorrhage Hemorrhage 00:00: Pr actic 00 e Chronic Chronic Problem Active [facility] obstructiv Obstructiv 7-13 Fa johann e lung e Lung 00:00: Practic disease Disease 00 e Obstructiv Obstructiv Problem Active [facility] e sleep e Sleep 1-24 Family apnea Apnea 00:00: Practic syndrome Syndrome 00 e Hearing Hearing Problem Active [facility] loss Loss 1-24 Family 00:00: Practic 00 e Cigarette Cigarette Problem Active [facility] waldron smoker Smoker 1-24 Family 00:00: Practic 00 e Mixed Mixed Problem Active 2017-05 [facility] hyperlipid Hyperlipid 0-17 Fa johann emia emia 00:00: Practic 00 e Secondary Secondary Problem Active [facility]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 Hyperparat 9-25 Fa j[facility]ann hyroidism hyroidism 00:00: Prac tic 00 e Diabetic Diabetic Problem Active [facility] peripheral Peripheral 9-20 Fa j[facility]ann neuropathy Neuropathy 00:00: Pr actic 00 e Iron Iron Problem Active [facility] deficiency Deficiency 9-20 Fa johann anemia Anemia 00:00: Practic 00 e Mixed Mixed Problem Active [facility] anxiety Anxiety 9-20 Family and and 00:00: Practic depressive Depressive 00 e disorder Disorder Peripheral Peripheral Problem Active illage vascular Vascular 9-20 Family disease Disease 00:00: Practic 00 e Insomnia Insomnia Problem Active [facility] 7-03 Family 00:00: Practic 00 e Disorder Disorder Problem Active [facility] of kidney of Kidney 5-24 Fami ly due to Due to 00:00: Practic diabetes Diabetes 00 e mellitus Mellitus Spinal Spinal Problem Active [facility] stenosis Stenosis 5-24 Family 00:00: Practic 00 e Anemia Anemia Disease Active Univers 5-08 ity of 00:00: [place] 00 Medical Branch Anemia Anemia Problem Active [place] 5-07 Family 00:00: Practic 00 e CVA CVA Disease Active Univers (cerebral (cerebral 4-12 ity of vascular vascular 00:00: [place] accident) accident) 00 Medi lisa Branch TIA TIA Disease Active Univers (transient (transient 4-11 it y of ischemic ischemic 00:00: [place] attack) attack) 00 Medical Branch Body mass Body Mass Problem Active Lary waldron index 30+ Index 30+ 3-29 Fami ly - obesity - Obesity 00:00: Prac tic 00 e Chest pain Chest Pain Problem Active [facility] 3-29 Family 00:00: Practic 00 e Allergies, Adverse Reactions, Alerts Allergy Allergy Status Severity Reaction(s) Onset Inactive Treating Comm ents Source Name Type Date Date Clinician [place] Allergy Active [place] in to 3-05 Family substanc 00:00: Practic e 00 e [place] Propensi Active Swelling Univ ers in ty to 08-22 ity of adverse 00:00: [place] reaction 00 Medical s to Branch drug PREG[place]AL DRUG Active High SOB Univers IN INGREDI 08-22 ity of 00:00: [place] 00 Medical Branch Lyrica Allergy Active [place] to Family substanc Practic e e Chantix Allergy Active Other [place] to Family substanc Practic e e Social History Social Habit Start Date Stop Date Quantity Comments Source Exposure to Unable to assess Univers ity of SARS-CoV-2 [facility] (event) [place] Sex Assigned At [facility] Tobacco use and 2020-03-10 2020-03-10 Never used Universit y of exposure 00:00:00 00:00:00 [facility] Tobacco Comment 2019-01-08 2019-01-08 Wants nicotine Unive rsity of 00:00:00 00:00:00 patch [facility] Smoking Status Start Date Stop Date Source Former smoker 2020-03-10 00:00:00 2020-03-10 00:00:00 [facility]i ty of [facility] Current every day 2019-09-22 00:00:00 [facility] smoker [facility] Medications Ordered Filled Start Stop Current Ordering Indication Dosage Frequency Signature Comments Components Source Medication Medication Date Date Medication? Clinician (SIG) Name Name Veronique Piper No 60unit( Q1D Tresiba [facility] FlexTouch [...] at days. days. bedtime for 90 days. omeprazole 2019-05 Yes 20mg Take 20 mg U nivers 20 mg 0-19 by mouth ity of capsule 18:23: daily. [address] montelukast 2019-05 Yes 10mg Take 10 mg Univers 10 mg 0-19 by mouth. ity of tablet 18:23: [address] Branch simvastatin 2019-05 Yes 40mg Take 40 mg Univers 20 mg 0-19 by mouth ity of tablet 18:23: at [place] [address] bedtime. Medical Branch Eldora-3-DHA 2019-05 Yes 1000mg Take 1,000 Univers -EPA-Fish 0-19 mg by ity of Oil (FISH 18:23: mouth [place] OIL) 1,000 12 daily. Medical mg (120 Branch mg-180 mg) Cap insulin 2019-05 Yes 40U inject 40 Unive rs degludec 0-19 Units ity of (TRESIBA 18:23: [place] FLEXTOUCH 12 skin at Medical U-100) 100 bedtime. Branc h unit/mL (3 mL) InPn Insulin 2019-05 Yes 6U inject 6 Univer s Lispro, 0-19 Units ity of Human, 18:23: under the [place] (HUMALOG 12 skin Medical U-100 before Branch INSULIN) meals. 100 unit/mL cartridge traMADol 50 2019-05 Yes 50mg Take 50 mg Univers mg tablet 0-19 by mouth ity of 18:23: every 8 [place] [address] (eight) Medical hours as Branch needed for Pain (scale 7-10). linaGLIPtin 2019-05 Yes Tradjenta U nivers (TRADJENTA) 0-19 5 mg ity of 5 mg tablet 18:23: [place] [address] [place] [address] Branch linaCLOtide 2019-05 Yes Take by Un courtney (LINZESS) 0-19 mouth. ity of 145 mcg 18:23: [place] capsule [address] [place] [address] Branch liraglutide 2019-05 Yes 1.2mg inject 1.2 Univers (VICTOZA 0-19 mg under ity of 2-YOSVANY) 0.6 18:23: the skin [place] as mg/0.1 mL 12 daily. Medical (18 mg/3 Branch mL) injection omeprazole 2019-05 Yes 20mg Take 20 mg U nivers 20 mg 0-19 by mouth ity of capsule 18:23: daily. [address] Branch montelukast 2019-05 Yes 10mg Take 10 mg Univers 10 mg 0-19 by mouth. ity of tablet 18:23: [address] Branch simvastatin 2019-05 Yes 40mg Take 40 mg Univers 20 mg 0-19 by mouth ity of tablet 18:23: at [place] 12 bedtime. Medical Branch Eldora-3-DHA 2019- Yes 1000mg Take 1,000 Univers -EPA-Fish 0-19 mg by ity of Oil (FISH 18:23: mouth [place] OIL) 1,000 12 daily. Medical mg (120 Branch mg-180 mg) Cap insulin 2019-05 Yes 40U inject 40 Unive rs degludec 0-19 Units ity of (TRESIBA 18:23: under the [facility] s FLEXTOUCH 12 skin at Medical U-100) 100 bedtime. Branc h unit/mL (3 mL) InPn Insulin 2019-05 Yes 6U inject 6 Univer s Lispro, 0-19 Units ity of Human, 18:23: under the [place] (HUMALOG 12 skin Medical U-100 before Branch INSULIN) meals. 100 unit/mL cartridge traMADol 50 2019-05 Yes 50mg Take 50 mg Univers mg tablet 0-19 by mouth ity of 18:23: every 8 [place] [address] (eight) Medical hours as Branch needed for Pain (scale 7-10). linaGLIPtin 2019-05 Yes Tradjenta U nivers (TRADJENTA) 0-19 5 mg ity of 5 mg tablet 18:23: [place] 12 [place] linaCLOtide 2019-05 Yes Take by Un courtney (LINZESS) 0-19 mouth. ity of 145 mcg 18:23: [place] capsule Medical Branch liraglutide 2019-05 Yes 1.2mg inject 1.2 Univers (VICTOZA 0-19 mg under ity of 2-YOSVANY) 0.6 18:23: the skin [place] as mg/0.1 mL 12 daily. Medical (18 mg/3 Branch mL) injection epoetin 2019-05 2020- No [id number] 10,000 Unive rs genet-epbx 0-19 10-19 Units, ity of (RETACRIT) 16:45: 17:01 Subcutaneo [place] injection 00 :00 us, ONCE Medica l 10,000 AT 2000, 1 Branch Units dose, 03/14/20 at 1145, Routine
prepared foods service team member approving Restricted medication : MEGADC lisinopril 2019-05 2020- No 40mg Take 40 mg Univers 40 mg 0-19 10-19 by mouth ity of tablet 16:44: 00:00 daily. [place] 29 :00 Medical Branch furosemide 2020-1 2020- No 80mg Take 80 mg Univers 40 mg 0-19 10-19 by mouth ity of tablet 16:27: 00:00 every [place] 24 :00 morning Medical and Branch evening. gabapentin 2019-05- No 600mg Take 600 U nivers 600 mg 0-19 10-19 mg by ity of tablet 16:27: 00:00 mouth 3 [place] 24 :00 (three) Medical times Branch daily. metOLazone 2019-05- No 2.5mg Take 2.5 U nivers 2.5 mg 0-19 10-19 mg by ity of tablet 16:27: 00:00 mouth [place] 24 :00 daily. Medical Branch calcitriol 2019-05- No .25ug Take 0.25 Univers 0.25 mcg 0-19 10-19 mcg by ity of capsule 16:27: 00:00 mouth 3 [place] 24 :00 (three) Medical times Branch daily. docusate 2019-05 Yes 100mg 100 mg, Unive rs (COLACE) 0-19 Oral, BID, ity o f capsule 100 15:30: First dose [place] mg 00 on [facility] 03/14/20 Branch at 1030, Until Discontinu ed, Routine carvediloL 2019-05 Yes 12.5mg 12.5 mg, U nivers (COREG) 0-19 Oral, BID ity of tablet 12.5 15:30: MEALS, [place] mg 00 First dose Medical on [facility] 03/14/20 at 1030, Until Discontinu ed, Routine ferrous 2019-05 Yes 325mg 325 mg, Univer s sulfate 0-19 Oral, TID ity of tablet 325 13:00: MEALS, [place] mg 00 First dose Medical on [facility] 03/14/20 at 0800, Until Discontinu ed, Routine temazepam 2019-05 Yes 15mg 15 mg, Univer s (RESTORIL) 0-19 Oral, ity of capsule 15 04:37: QHSPRN, [place] mg 24 Starting [facility] 03/13/20 at 2337, Until Discontinu ed, Routine, Insomnia furosemide 2019-05 2020- No [id number] 40mg Take 1 Univers 40 mg 0-19 11-19 tablet by ity of tablet 00:00: 05:59 mouth [place] 00 :00 every Medical morning Branch and evening for 30 days. gabapentin 2019-05 2020- No [id number] 600mg Take 1 Univers 600 mg 0-19 11-19 tablet by ity of tablet 00:00: 05:59 mouth 2 [place] 00 :00 (two) Medical times Branch daily for 30 days. carvediloL 2019-05 2020- No [id number] 12.5mg Take 1 Univers 12.5 mg 0-19 11-19 tablet by ity of tablet 00:00: 05:59 mouth 2 [place] 00 :00 (two) Medical times Branch daily with meals for 30 days. ferrous 2019- 2020- No [id number] 325mg Take 1 Un [place] sulfate 325 0-19 11-19 tablet by it y of mg (65 mg 00:00: 05:59 mouth 3 [place] iron) 00 :00 (three) Medical tablet times Branch daily with meals for 30 days. hydrALAZINE 2019-05 2020- No [id number] 25mg Take 1 Univers 25 mg 0-19 11-19 tablet by ity of tablet 00:00: 05:59 mouth 2 [place] 00 :00 (two) Medical times Branch daily for 30 days. furosemide 2019-05 2020- No [id number] 40mg Take 1 Univers 40 mg 0-19 11-19 tablet by ity of tablet 00:00: 05:59 mouth [place] 00 :00 every Medical morning Branch and evening for 30 days. gabapentin 2019-05 2020- No [id number] 600mg Take 1 Univers 600 mg 0-19 11-19 tablet by ity of tablet 00:00: 05:59 mouth 2 [place] 00 :00 (two) Medical times Branch daily for 30 days. carvediloL 2019-05 2020- No [id number] 12.5mg Take 1 Univers 12.5 mg 0-19 11-19 tablet by ity of tablet 00:00: 05:59 mouth 2 [place] 00 :00 (two) Medical times Branch daily with meals for 30 days. ferrous 2019- 2020- No [id number] 325mg Take 1 Un courtney sulfate 325 0-19 11-19 tablet by it y of mg (65 mg 00:00: 05:59 mouth 3 [place] iron) 00 :00 (three) Medical tablet times Branch daily with meals for 30 days. hydrALAZINE 2019- 2020- No [id number] 25mg Take 1 Univers 25 mg 0-19 11-19 tablet by ity of tablet 00:00: 05:59 mouth 2 [place] 00 :00 (two) Medical times Branch daily for 30 days. Polyethylen 2019-05 Yes 17g 17 g, Unive rs e Glycol 0-18 Oral, TID, ity o f 3350 19:00: First dose [place] (MIRALAX) 00 (after Medical powder 17 g last Branch modificati on) on [place] 03/13/20 at 1400, Until Discontinu ed, Routine traMADoL 2019-05 Yes 50mg 50 mg, Univers (ULTRAM) 0-18 Oral, ity of tablet 50 14:07: Q6HPRN, [place] mg 16 Starting Medical [facility] 03/13/20 at 0907, Until Discontinu ed, Routine, Pain (scale 4-6) hydrALAZINE 2019-05 Yes 10mg 10 mg, Univ ers (APRESOLINE 0-17 Oral, Q6H, it y of ) tablet 10 23:00: First dose [place] mg 00 (after Medical last Branch modificati on) on [facility] 03/12/20 at 1800, Until Discontinu ed, Routine sennosides 2019-05 Yes 8.6mg 8.6 mg, Uni vers (SENOKOT) 0-17 Oral, BID, ity of tablet 8.6 22:00: First dose [place] mg 00 on [facility] 03/12/20 Branch at 1700, Until Discontinu ed, Routine Polyethylen 2019-05 2020- No 17g 17 g, Univ ers e Glycol 0-17 10-18 Oral, BID ity o f 3350 22:00: 16:42 MEALS, [place] (MIRALAX) 00 :52 First dose Medi lisa powder 17 g (after Branch last modificati on) on [facility] 03/12/20 at 1700, Until Discontinu ed, Routine bisacodyL 2019-05 2020- No 10mg 10 mg, Unive rs (DULCOLAX) 0-17 10-17 Rectal, ity o f suppository 19:45: 19:29 ONCE NOW, [place] 10 mg 00 :00 1 dose, Medical [facility] 03/12/20 at 1445, Routine ondansetron 2019- Yes 4mg 4 mg, Slow Univers (ZOFRAN 0-17 IV Push, ity of (PF)) 18:46: Q6HPRN, [place] injection 4 28 Starting Medi lisa mg [facility] 03/12/20 at 1346, Until Discontinu ed, Routine, Nausea and Vomiting (N/V) bisacodyL 2019-05 Yes 10mg 10 mg, Univer s (DULCOLAX) 0-17 Oral, ity of tablet 10 18:43: QDAILYPRN, [place] mg 31 Starting Medical Sat Branch 03/12/20 at 1343, Until Discontinu ed, Routine, Constipati on Sliding 2019-05 Yes Subcutaneo Univ ers Scale 0-16 us, AC, ity of Insulin - 16:45: [place] Aspart 00 on Sat Medical (NOVOLOG) + 03/11/20 Bran ch Fsbg at 1145, Testing Until Discontinu ed, Routine iron 2019-05 2020- No 300mg 300 mg, IV Unive rs sucrose 0-16 10-16 Infusion, ity of (VENOFER) 14:45: 16:42 ONCE, Sat [place] 300 mg in 00 :00 03/11/20 Medica l NaCl 0.9% at 0945, Branch (NS) 250 mL For 1 dose infusion omeprazole 2019-05 Yes 20mg 20 mg, Unive rs (PRILOSEC) 0-16 Oral, ity of capsule 20 14:00: DAILY, [place] mg 00 First dose Medical on Sat Branch 03/11/20 at 0900, Until Discontinu ed, Routine aspirin 2019-05 Yes 81mg 81 mg, Univers chewable 0-16 Oral, ity of tablet 81 14:00: DAILY, [place] mg 00 First dose Medical on Sat Branch 03/11/20 at 0900, Until Discontinu ed, Routine NaCl 0.45% 2019-05 Yes 1000mL at 100 Uni vers (1/2NS) IV 0-16 mL/hr, ity of infusion 04:00: 1,000 mL, [place] 1,000 mL 00 IV Medical Infusion, Branch CONTINUOUS , Starting [place] 03/10/20 at 2300, Until Discontinu ed, Routine simvastatin 2019-05 Yes 40mg 40 mg, Univ ers (ZOCOR) 0-16 Oral, QHS, ity of tablet 40 02:00: First dose [place] mg 00 on [facility] 03/10/20 Branch at 2100, Until Discontinu ed, Routine insulin 2019-05 Yes 20U 20 Units, Unive rs detemir 0-16 Subcutaneo ity of U-100 02:00: us, Q, [place] (LEVEMIR 00 First dose Medic al U-100 on [facility] Branch INSULIN) 03/10/20 injection at 2100, 20 Units Until Discontinu ed metformin 2019-05- No 500mg Take 500 Un courtney ER 500 mg 0-15 10-15 mg by ity of 24 hr 21:29: 00:00 mouth [place] tablet 35 :00 daily with Medical breakfast. Branch allopurinoL 2019-05- No allopurino Univers 100 mg 0-15 10-15 l 100 mg ity of tablet 21:29: 00:00 tablet [place] 35 :00 Take 1 Medical tablet Branch every day by oral route for 90 days. traMADoL 2019-05- No 50mg 50 mg, Univer s (ULTRAM) 0-15 10-17 Oral, ity of tablet 50 21:08: 21:07 Q8HPRN, [place] mg 32 :32 Starting Medical [facility] Branch 03/10/20 at 1608, Until 03/12/20 at 1607, Routine, Pain (scale 4-6) acetaminoph 2019-05 Yes 650mg 650 mg, Un courtney en 0-15 Oral, ity of (TYLENOL) 21:08: Q6HPRN, [place] tablet 650 26 Starting Medic al mg [place] Branch 03/10/20 at 1608, Until Discontinu ed, Routine, Pain (scale 1-3) NaCl 0.9% 2019-05- No 1000mL at 50 Univ ers (NS) IV 0-15 10-16 mL/hr, IV ity of infusion 20:45: 02:55 Infusion, [place] as 1,000 mL 00 :53 CONTINUOUS Medic al , Starting Branch [facility] 03/10/20 at 1545, Until [place] 03/10/20 at 2155, Routine allopurinoL 2019-0 Yes allopurino Univers 100 mg 4-28 l 100 mg ity of tablet 15:28: tablet [place] 12 Take 1 Medical tablet Branch every day by oral route for 90 days. linaGLIPtin 2019-0 Yes Tradjenta U nivers (TRADJENTA) 4-28 5 mg ity of 5 mg tablet 15:28: tablet [place] 12 Medical Branch linaCLOtide 2019-0 Yes Take by Un [place] (LINZESS) 4-28 mouth. ity of 145 mcg 15:28: [place] capsule 12 Medical Branch allopurinoL 2020-0 Yes allopurino Univers 100 mg 4-28 l 100 mg ity of tablet 15:28: tablet [place] 12 Take 1 Medical tablet Branch every day by oral route for 90 days. linaGLIPtin 2020-0 Yes Tradjenta U nivers (TRADJENTA) 4-28 5 mg ity of 5 mg tablet 15:28: tablet [place] 12 [place] linaCLOtide 2020-0 Yes Take by Un [place] (LINZESS) 4-28 mouth. ity of 145 mcg 15:28: [place] capsule 12 Medical Branch Eldora-3-DHA 2020-0 Yes 1000mg Take 1,000 Univers -EPA-Fish 4-28 mg by ity of Oil (FISH 15:25: mouth [place] OIL) 1,000 48 daily. Medical mg (120 Branch mg-180 mg) Cap [place]-3-DHA 2020-0 Yes 1000mg Take 1,000 Univers -EPA-Fish 4-28 mg by ity of Oil (FISH 15:25: mouth [place] OIL) 1,000 48 daily. Medical mg (120 Branch mg-180 mg) Cap lisinopril 2020-0 Yes 40mg Take 40 mg U nivers 40 mg 4-28 by mouth ity of tablet 15:23: daily. [place] [address] Medical Branch furosemide 2020-0 Yes 40mg Take 40 mg U nivers 40 mg 4-28 by mouth ity of tablet 15:23: daily. [place] [address] Medical Branch omeprazole 2020-0 Yes 20mg Take 20 mg U nivers 20 mg 4-28 by mouth ity of capsule 15:23: daily. [place] [address] Medical Branch montelukast 2020-0 Yes 10mg Take 10 mg Univers 10 mg 4-28 by mouth. ity of tablet 15:23: [place] [address] Medical Branch simvastatin 2020-0 Yes 40mg Take 40 mg Univers 20 mg 4-28 by mouth ity of tablet 15:23: at [place] [address] bedtime. Medical Branch gabapentin 2020-0 Yes 600mg Take 600 Un courtney 600 mg 4-28 mg by ity of tablet 15:23: mouth 3 [place] [address] (three) Medical times Branch daily. insulin 2020-0 Yes inject Univers degludec 4-28 under the ity of (TRESIBA 15:23: skin. [place] FLEXTOUCH 37 Medical U-100) 100 Branch unit/mL (3 mL) InPn metOLazone 2020-0 Yes 2.5mg Take 2.5 Un courtney 2.5 mg 4-28 mg by ity of tablet 15:23: mouth [place] 37 daily. Medical Branch calcitriol 2020-0 Yes .25ug Take 0.25 U nivers 0.25 mcg 4-28 mcg by ity of capsule 15:23: mouth 3 [place] [address] (three) Medical times Branch daily. metformin 2020-0 Yes 500mg Take 500 Uni vers ER 500 mg 4-28 mg by ity of 24 hr 15:23: mouth [place] tablet 37 daily with Medical breakfast. Branch Insulin 2020-0 Yes 24U inject 24 Unive rs Lispro, 4-28 Units ity of Human, 15:23: under the [place] (HUMALOG 37 skin Medical U-100 before Branch INSULIN) meals. 100 unit/mL cartridge traMADol 50 2020-0 Yes 50mg Take 50 mg Univers mg tablet 4-28 by mouth ity of 15:23: every 8 [place] [address] (eight) Medical hours as Branch needed for Pain (scale 7-10). lisinopril 2020-0 Yes 40mg Take 40 mg U nivers 40 mg 4-28 by mouth ity of tablet 15:23: daily. [address] Branch furosemide 2020-0 Yes 40mg Take 40 mg U nivers 40 mg 4-28 by mouth ity of tablet 15:23: daily. [address] Branch omeprazole 2020-0 Yes 20mg Take 20 mg U nivers 20 mg 4-28 by mouth ity of capsule 15:23: daily. [address] Branch montelukast 2020-0 Yes 10mg Take 10 mg Univers 10 mg 4-28 by mouth. ity of tablet 15:23: [address] Branch simvastatin 2020-0 Yes 40mg Take 40 mg Univers 20 mg 4-28 by mouth ity of tablet 15:23: at [place] [address] bedtime. Medical Branch gabapentin 2020-0 Yes 600mg Take 600 Un [place]ney 600 mg 4-28 mg by ity of tablet 15:23: mouth 3 [place] [address] (three) Medical times Branch daily. insulin 2020-0 Yes inject Univers degludec 4-28 under the ity of (TRESIBA 15:23: skin. [place] FLEXTOUCH 37 Medical U-100) 100 Branch unit/mL (3 mL) InPn metOLazone 2020-0 Yes 2.5mg Take 2.5 Un [place]ney 2.5 mg 4-28 mg by ity of tablet 15:23: mouth [place] 37 daily. Medical Branch calcitriol 2020-0 Yes .25ug Take 0.25 U nivers 0.25 mcg 4-28 mcg by ity of capsule 15:23: mouth 3 [place] 37 (three) Medical times Branch daily. metformin 2020-0 Yes 500mg Take 500 Uni vers ER 500 mg 4-28 mg by ity of 24 hr 15:23: mouth [place] tablet 37 daily with Medical breakfast. Branch Insulin 2019-0 Yes 24U inject 24 Unive rs Lispro, 4-28 Units ity of Human, 15:23: under the [place] (HUMALOG 37 skin Medical U-100 before Branch INSULIN) meals. 100 unit/mL cartridge traMADol 50 2020-0 Yes 50mg Take 50 mg Univers mg tablet 4-28 by mouth ity of 15:23: every 8 [place] 37 (eight) Medical hours as Branch needed for Pain (scale 7-10). albuterol 2019-0 2020- No [id number] 2{puff} Inhale 2 Univers (VENTOLIN 4-28 05-29 Puffs ity of HFA) 90 00:00: 04:59 every 6 [place] mcg/actuati 00 :00 (six) Medical on inhaler hours as Branc h needed for Shortness of Breath for up to 30 days. albuterol 2019-0 2020- No [id number] 2{puff} Inhale 2 Univers (VENTOLIN 4-28 05-29 Puffs ity of HFA) 90 00:00: 04:59 every 6 [place] mcg/actuati 00 :00 (six) Medical on inhaler hours as Branc h needed for Shortness of Breath for up to 30 days. benzonatate 2019-0 2020- No [id number] 100mg Take 1 Univers (TESSALON 4-28 05-13 capsule by ity of PERLES) 100 00:00: 04:59 mouth 3 [place] mg capsule 00 :00 (three) Medica l times Branch daily for 14 days. benzonatate 2019-0 2020- No [id number] 100mg Take 1 Univers (TESSALON 4-28 05-13 capsule by ity of PERLES) 100 00:00: 04:59 mouth 3 [place] mg capsule 00 :00 (three) Medica l times Branch daily for 14 days. proMETHazin 2019-2019- No [id number] 25mg Take 1 Univers e 25 mg 09-21 tablet by ity of tablet 00:00: 04:59 mouth [place] 00 :00 every 6 Medical (six) Branch hours as needed for Nausea and Vomiting (N/V) for up to 7 days. proMETHazin 2019- No [id number] 25mg Take 1 Univers e 25 mg 09-21 tablet by ity of tablet 00:00: 04:59 mouth [place] 00 :00 every 6 Medical (six) Branch hours as needed for Nausea and Vomiting (N/V) for up to 7 days. azithromyci 2019- No [id number] 250mg Take 1 Univers n 09-21 tablet by ity of (ZITHROMAX 00:00: 04:59 mouth [place] Z-YOSVANY) 250 00 :00 daily for Medi lisa mg tablet 5 days. Branch Take 500 mg day 1, then 250 mg days 2 to 5. azithromyci 2019- No [id number] 250mg Take 1 Univers n 09-21 tablet by ity of (ZITHROMAX 00:00: 04:59 mouth [place] Z-YOSVANY) 250 00 :00 daily for Medi lisa mg tablet 5 days. Branch Take 500 mg day 1, then 250 mg days 2 to 5. pioglitazon 2020-0 Yes Univer s e 15 mg 3-11 ity of tablet 00:00: [place] 00 [facility] pioglitazon 2020-0 Yes Univer s e 15 mg 3-11 ity of tablet 00:00: [place] 00 [facility] pioglitazon 2020-0 2020- No Unive rs e 15 mg 3-11 10-15 ity of tablet 00:00: 00:00 [place] 00 :00 [facility] lisinopril 2019-0 Yes 40mg Take 40 mg U nivers 40 mg 8-16 by mouth ity of tablet 23:06: daily. [address] furosemide 2019-0 Yes 40mg Take 40 mg U nivers 40 mg 8-16 by mouth ity of tablet 23:06: daily. [address] omeprazole 2019-0 Yes 20mg Take 20 mg U nivers 20 mg 8-16 by mouth ity of capsule 23:06: daily. [address] Branch montelukast 2019-0 Yes 10mg Take 10 mg Univers 10 mg 8-16 by mouth. ity of tablet 23:06: [address] Branch simvastatin 2019-0 Yes 20mg Take 20 mg Univers 20 mg 8-16 by mouth ity of tablet 23:06: at [place] [address] bedtime. Medical Branch gabapentin 2019-0 Yes 600mg Take 600 Un [place] 600 mg 8-16 mg by ity of tablet 23:06: mouth 3 [place] 17 (three) Medical times Branch daily. [place]-3-DHA 2019-0 Yes 1000mg Take 1,000 Univers -EPA-Fish 8-16 mg by ity of Oil (FISH 23:06: mouth [place] OIL) 1,000 17 daily. Medical mg (120 Branch mg-180 mg) Cap insulin 2018-0 Yes inject Univers degludec 8-16 under the ity of (TRESIBA 23:06: skin. [place] FLEXTOUCH 17 Medical U-100) 100 Branch unit/mL (3 mL) InPn metOLazone 2019-0 Yes 2.5mg Take 2.5 Un [place] 2.5 mg 8-16 mg by ity of tablet 23:06: mouth [place] 17 daily. Medical Branch calcitriol 2019-0 Yes .25ug Take 0.25 U nivers 0.25 mcg 8-16 mcg by ity of capsule 23:06: mouth 3 [place] [address] (three) Medical times [place] daily. metformin 2019-0 Yes 500mg Take 500 Uni vers ER 500 mg 8-16 mg by ity of 24 hr 23:06: mouth [place] tablet 17 daily with Medical breakfast. Branch Insulin 2019-0 Yes 24U inject 24 Unive rs Lispro, 8-16 Units ity of Human, 23:06: under the [place] (HUMALOG 17 skin Medical U-100 before Branch INSULIN) meals. 100 unit/mL cartridge traMADol 50 2019-0 Yes 50mg Take 50 mg Univers mg tablet 8-16 by mouth ity of 23:06: every 8 [place] [address] (eight) Medical hours as Branch needed for Pain (scale 7-10). lisinopril 2019-0 Yes 40mg Take 40 mg U nivers 40 mg 8-16 by mouth ity of tablet 23:06: daily. [place] 17 Medical Branch furosemide 2019-0 Yes 40mg Take 40 mg U nivers 40 mg 8-16 by mouth ity of tablet 23:06: daily. [address] Branch omeprazole 2019-0 Yes 20mg Take 20 mg U nivers 20 mg 8-16 by mouth ity of capsule 23:06: daily. [address] Branch montelukast 2019-0 Yes 10mg Take 10 mg Univers 10 mg 8-16 by mouth. ity of tablet 23:06: [address] Branch simvastatin 2019-0 Yes 20mg Take 20 mg Univers 20 mg 8-16 by mouth ity of tablet 23:06: at [place] [address] bedtime. Medical Branch gabapentin 2019-0 Yes 600mg Take 600 Un [place] 600 mg 8-16 mg by ity of tablet 23:06: mouth 3 [place] [address] (three) Medical times [place] daily. [place]-3-DHA 2019-0 Yes 1000mg Take 1,000 Univers -EPA-Fish 8-16 mg by ity of Oil (FISH 23:06: mouth [place] OIL) 1,000 17 daily. Medical mg (120 Branch mg-180 mg) Cap insulin 2018-0 Yes inject Univers degludec 8-16 under the ity of (TRESIBA 23:06: skin. [place] FLEXTOUCH 17 Medical U-100) 100 Branch unit/mL (3 mL) InPn metOLazone 2018-0 Yes 2.5mg Take 2.5 Un [place] 2.5 mg 8-16 mg by ity of tablet 23:06: mouth [place] [address] daily. Medical Branch calcitriol 2019-0 Yes .25ug Take 0.25 U nivers 0.25 mcg 8-16 mcg by ity of capsule 23:06: mouth 3 [place] [address] (three) Medical times [place] daily. metformin 2019-0 Yes 500mg Take 500 Uni vers ER 500 mg 8-16 mg by ity of 24 hr 23:06: mouth [place] tablet 17 daily with Medical breakfast. Branch Insulin 2019-0 Yes 24U inject 24 Unive rs Lispro, 8-16 Units ity of Human, 23:06: under the [place] (HUMALOG 17 skin Medical U-100 before Branch INSULIN) meals. 100 unit/mL cartridge traMADol 50 2019-0 Yes 50mg Take 50 mg Univers mg tablet 8-16 by mouth ity of 23:06: every 8 [place] [address] (eight) Medical hours as Branch needed for Pain (scale 7-10). FENTanyl PF 2018- 2019- No Slow IV Un [place] (SUBLIMAZE 01-09 08-16 Push, ity of (PF)) 17:29: 17:29 TITRATE - [place] injection 55 :55 FOR Medical PROCEDURE Branch USE, 1 dose, Starting 01/09/19 at 1229, Until 01/09/19 at 1229, Routine midazolam 2019- No IV Push, Uni vers (VERSED) 01-0916 TITRATE - ity o f injection 17:29: 17:29 FOR [place] 50 :50 PROCEDURE Medical USE, 1 Branch dose, Starting 01/09/19 at 1229, Until 01/09/19 at 1229, Routine midazolam 2019- No IV Push, Uni vers (VERSED) 01-09 08-16 TITRATE - ity o f injection 17:25: 17:25 FOR [place] 40 :40 PROCEDURE Medical USE, 1 Branch dose, Starting 01/09/19 at 1225, Until Sat01/09/19 at 1225, Routine FENTanyl PF 2019- No Slow IV Un [place] (SUBLIMAZE 01-09-16 Push, ity of (PF)) 17:24: 17:24 TITRATE - [place] injection 05 :05 FOR Medical PROCEDURE Branch USE, 1 dose, Starting 01/09/19 at 1224, Until 01/09/19 at 1224, Routine simethicone Yes 80mg 80 mg, Univ ers (GAS 8-16 Oral, ity of RELIEF) 07:57: QIDPRN, [place] chewable 31 Starting Medical tablet 80 Fri Branch mg 01/09/19 at 0257, Until Discontinu ed, Routine, Gas nicotine Yes 1{patch 1 Patch, Un [place] (NICODERM) 8-16 } Topical, ity o f 14 mg/24 hr 02:00: Administer [place] patch 1 00 over 24 Medical Patch Hours, Branch Q24H, First dose on [place] 01/08/19 at 2100, Until Discontinu ed, Routine Sliding Yes Subcutaneo Univ ers Scale 8-16 us, AC+HS, ity of Insulin-Reg 02:00: First dose [place] ular + Fsbg 00 on [place] Medica l Testing 01/08/19 at Branch 2100, Until Discontinu ed, Routine guaiFENesin 2019- Yes 100mg 100 mg, Un [place]ney 100 mg/5 mL 8-16 Oral, Q4H, it y of solution 01:00: First dose [place] as 100 mg 00 on [facility] Medical 01/08/19 at Branch 2000, Until Discontinu ed, Routine gabapentin 2019-0 Yes 600mg 600 mg, Uni vers (NEURONTIN) 8-16 Oral, TID, it y of tablet 600 01:00: First dose [place] mg 00 on [facility] 01/08/19 at Branch 2000, Until Discontinu ed, Routine nicotine 14 2018- Yes [id number] 1{patch Apply 1 Univers mg/24 hr 8-16 } Patch to ity of patch 00:00: area(s) [place] 00 every 24 Medical (twenty-fo Branch ur) hours. nicotine 14 Yes [id number] 1{patch Apply 1 Univers mg/24 hr 8-16 } Patch to ity of patch 00:00: [facility](s) [place] 00 every 24 Medical (twenty-fo Branch ur) hours. nicotine 14 Yes [id number] 1{patch Apply 1 Univers mg/24 hr 8-16 } Patch to ity of patch 00:00: area(s) [place] 00 every 24 Medical (twenty-fo Branch ur) hours. nicotine 14 2018- Yes [id number] 1{patch Apply 1 Univers mg/24 hr 8-16 } Patch to ity of patch 00:00: area(s) [place] 00 every 24 Medical (twenty-fo Branch ur) hours. nicotine 14 2020- No [id number] 1{patch Apply 1 Univers mg/24 hr 8-16 10-19 } Patch to ity of patch 00:00: 00:00 area(s) [place] 00 :00 every 24 Medical (twenty-fo Branch ur) hours. nicotine 14 2019- No [id number] 1{patch Apply 1 Univers mg/24 hr 8-16 08-16 } Patch to ity of patch 00:00: 00:00 [facility](s) [place] 00 :00 every 24 Medical (twenty-fo Branch ur) hours. traMADol 2018- Yes 50mg 50 mg, Univers (ULTRAM) 8-15 Oral, ity of tablet 50 23:45: Q8HPRN, [place] mg 08 Starting Medical [place] Branch 01/08/19 at 1845, Until Discontinu ed, Routine, Pain (scale 7-10) ondansetron Yes 4mg 4 mg, Slow Univers (ZOFRAN 815 IV Push, ity of (PF)) 23:41: Q6HPRN, [place] injection 4 27 Starting Medi lisa mg [facility] 01/08/19 at 1841, Until Discontinu ed, Routine, Nausea and Vomiting (N/V) acetaminoph Yes 650mg 650 mg, Un [place] en 8-15 Oral, ity of (TYLENOL) 23:41: Q6HPRN, [place] tablet 650 09 Starting Medic al mg [facility] Branch 01/08/19 at 1841, Until Discontinu ed, Routine, Pain (scale 1-3) traZODONE 2018- No 50mg Take 50 mg U nivers 50 mg 01-08 by mouth ity of tablet 23:31: 00:00 at [place] 47 :00 bedtime. Medical Branch amLODIPine 2019- No 5mg Take 5 mg U nivers 5 mg tablet 01-08 by mouth ity of 23:26: 00:00 daily. [place] 50 :00 Medical Branch pantoprazol 0 Yes 8mg/h 8 mg/hr Un courtney e 01-08 (50 ity of (PROTONIX) 22:15: mL/hr), IV [place] 80 mg in 00 Piggyback, Medic al NaCl 0.9% CONTINUOUS Bran ch (NS) 500 mL , Starting infusion [facility] 01/08/19 at 1715, Until Discontinu ed, 500 mL NaCl 0.9% 2019- No 1000mL at 999 Uni vers (NS) bolus 01-0815 mL/hr, ity of infusion 22:15: 21:37 1,000 mL, [place] as 1,000 mL 00 :00 IV Medical Infusion, Branch ONCE, 1 dose, [facility] 01/08/19 at 1715, STAT pantoprazol 2018- No 80mg 80 mg, IV Univers e 01-08 0815 Push, ity of (PROTONIX) 22:15: 21:34 ONCE, 1 [place] 80 mg in 00 :00 dose, [facility] Medica l NaCl 0.9% 8/15/19 at [facility] (NS) 20 mL 1715, 20 syringe mL aspirin 81 2018-0 Yes 81mg Take 1 Unive rs mg chewable 4-14 tablet by ity of tablet 00:00: mouth [place] 00 daily. Medical Branch aspirin 81 2018-0 Yes 81mg Take 1 Unive rs mg chewable 4-14 tablet by ity of tablet 00:00: mouth [place] 00 daily. Medical Branch aspirin 81 2018-0 Yes 81mg Take 1 Unive rs mg chewable 4-14 tablet by ity of tablet 00:00: mouth [place] 00 daily. Medical Branch aspirin 81 2018-0 Yes 81mg Take 1 Unive rs mg chewable 4-14 tablet by ity of tablet 00:00: mouth [place] 00 daily. Medical Branch aspirin 81 2018-0 Yes 81mg Take 1 Unive rs mg chewable 4-14 tablet by ity of tablet 00:00: mouth [place] 00 daily. Medical Branch aspirin 81 2018-0 Yes 81mg Take 1 Unive rs mg chewable 4-14 tablet by ity of tablet 00:00: mouth [place] 00 daily. Medical Branch cyclobenzap 2017-0 Yes 10mg Take 1 Univ ers rine 10 mg 3-31 tablet by ity of tablet 00:00: mouth 3 [place] 00 (three) Medical times Branch daily as needed for Muscle Spasms. cyclobenzap 2017-0 Yes 10mg Take 1 Univ ers rine 10 mg 3-31 tablet by ity of tablet 00:00: mouth 3 [place] 00 (three) Medical times Branch daily as needed for Muscle Spasms. cyclobenzap 2017-0 Yes 10mg Take 1 Univ ers rine 10 mg 3-31 tablet by ity of tablet 00:00: mouth 3 [place] 00 (three) Medical times Branch daily as needed for Muscle Spasms. cyclobenzap 2017-0 Yes 10mg Take 1 Univ ers rine 10 mg 3-31 tablet by ity of tablet 00:00: mouth 3 [place] 00 (three) Medical times Branch daily as needed for Muscle Spasms. cyclobenzap 2017-0 Yes 10mg Take 1 Univ ers rine 10 mg 3-31 tablet by ity of tablet 00:00: mouth 3 [place] 00 (three) Medical times Branch daily as needed for Muscle Spasms. cyclobenzap 2017-0 Yes 10mg Take 1 Univ ers rine 10 mg 3-31 tablet by ity of tablet 00:00: mouth 3 [place] 00 (three) Medical times Branch daily as needed for Muscle Spasms. albuterol albuterol No albuterol [place] sulfate HFA [...] % pads 70 % pads Practic e allopurinol allopurinol No allopurino [facility] 100 mg 100 mg l 100 mg Family tablet Take tablet Take tablet Practic 1 tablet 1 tablet Take 1 e every day every day tablet by oral by oral every day route for route for by oral 90 days. 90 days. route for 90 days. carvedilol carvedilol No carvedilol [facility] 25 mg 25 mg 25 mg Family tablet Take tablet Take tablet Practic 1 tablet 1 tablet Take 1 e twice a day twice a day tablet by oral by oral twice a route. route. day by oral route. clever clever No clever [place] choice choice choice Family comfort ez comfort ez comfort ez Practic pen needles pen needles pen e [id number] 32g [id number] 32g needles x 5 mm misc x 5 mm misc [id number] 32g x 5 mm misc colchicine colchicine No colchicine [facility] 0.6 mg 0.6 mg 0.6 mg Family tablet tablet tablet Practic e Comfort EZ Comfort EZ No Comfort EZ [place] Pen [place] Pen [place] Pen F amily 31 gauge x 31 gauge x [place] 31 Practic 16" 3/16" gauge x e 316" Dulcolax Dulcolax No 1 Q1D Dulcolax [place] chivo (bisacodyl) (bisacodyl) (bisacodyl [facility] 5 mg 5 mg ) 5 mg Practic tablet,rodriguez tablet,rodriguez tablet,del e yed release yed release ayed Take 1 Take 1 release tablet tablet Take 1 every day every day tablet by oral by oral every day route. route. by oral route. Farxiga 5 Farxiga 5 No Farxiga 5 Village mg tablet mg tablet mg tablet Family Take 1 Take 1 Take 1 Practic tablet tablet tablet e every day every day every day by oral by oral by oral route. route. route. FreeStyle FreeStyle No FreeStyle [place] Param 14 Param 14 Param 14 Fam rigoberto Day [place] Day [place] Day [place] Practic e FreeStyle FreeStyle No FreeStyle [place] Param 14 Param 14 Param 14 Fam rigoberto Day Sensor Day Sensor Day Sensor Practic kit kit kit e FreeStyle FreeStyle No FreeStyle [facility] Lite Strips Lite Strips Lite F amily Take 1 Take 1 Strips Practic strip twice strip twice Take 1 e a day by a day by strip miscell. miscell. twice a route. route. day by miscell. route. furosemide furosemide No 1 Q2D furosemide [facility] 40 mg 40 mg 40 mg Family tablet Take tablet Take tablet Practic 1 tablet 1 tablet Take 1 e every other every other tablet day by oral day by oral every route for route for other day 90 days. 90 days. by oral route for 90 days. gabapentin gabapentin No gabapentin [facility] 600 mg 600 mg 600 mg Family [...] iron 27 mg No iron 27 mg [facility] iron tablet iron tablet iron F amily 2 tabs qam, 2 tabs qam, tablet 2 Practic 1 qpm 1 qpm tabs qam, e 1 qpm Linzess 145 Linzess 145 No 1capsul Q1D Linzess [facility] mcg capsule mcg capsule e(s) 145 mcg Family Take 1 Take 1 capsule Practic capsule capsule Take 1 e every day every day capsule by oral by oral every day route. route. by oral route. montelukast montelukast No 1 Q1D montelukas [facility] 10 mg 10 mg t 10 mg Family tablet Take tablet Take tablet Practic 1 tablet 1 tablet Take 1 e every day every day tablet by oral by oral every day route at route at by oral bedtime. bedtime. route at bedtime. Ozempic Ozempic No Ozempic [place] 0.25 mg or 0.25 mg or 0.25 mg or Family 0.5 mg (2 0.5 mg (2 0.5 mg (2 Practic mg/1.5 mL) mg/1.5 mL) mg/1.5 mL) e subcutaneou subcutaneou subcutaneo s pen s pen us pen injector injector injector Ozempic 1 Ozempic 1 No Ozempic 1 [...] x4wk, wk x4wk, SC every 1 then may then september wk x4wk, increase to increase to then september 1 mg SC 1 mg SC increase every 1 wk; every 1 wk; to 1 mg SC every 1 wk; Ozempic 1 Ozempic 1 No Ozempic 1 [facility] mg/dose (4 mg/dose (4 mg/dose (4 Family mg/3 mL) mg/3 mL) mg/3 mL) Pra ctic subcutaneou subcutaneou subcutaneo e s pen s pen us pen injector injector injector pharmacist pharmacist No pharmacist [place] choice choice choice Family ultra thin ultra thin ultra thin Practic lancets lancets lancets e misc misc misc simvastatin simvastatin No cj [facility] 40 mg 40 mg n 40 mg Family tablet Take tablet Take tablet Practic 0.5 tablets 0.5 tablets Take 0.5 e every day every day tablets by oral by oral every day route at route at by oral bedtime. bedtime. route at bedtime. spironolact spironolact No spironolac [place] one 25 mg one 25 mg tone 25 mg Family tablet Take tablet Take tablet Practic 1 tablet 1 tablet Take 1 e every other every other tablet day by oral day by oral every route. route. other day by oral route. tramadol tramadol No tramadol [place] ch[place] 100 mg 100 mg 100 mg Family tablet Take tablet Take tablet Practic 1 tablet as 1 tablet as Take 1 e needed by needed by tablet as oral route oral route needed by as directed as directed oral route for 10 for 10 as days. days. directed for 10 days. Immunizations Ordered Immunization Filled Immunization Date Status Commen ts Source Name Name COVID-19, mRNA, COVID-19, mRNA, 2021-01-10 Completed [facility] age Family LNP-S, PF, 30 LNP-S, PF, 30 00:00:00 Practice mcg/0.3 mL dose mcg/0.3 mL dose influenza, influenza, 2021-01-10 Completed [facility] injectable, injectable, 00:00:00 Practice quadrivalent quadrivalent COVID-19, mRNA, COVID-19, mRNA, 2020-08-08 Completed [facility] age Family LNP-S, PF, 30 LNP-S, PF, 30 00:00:00 Practice mcg/0.3 mL dose mcg/0.3 mL dose COVID-19, mRNA, COVID-19, mRNA, 2020-07-18 Completed [facility] age Family LNP-S, PF, 30 LNP-S, PF, 30 00:00:00 Practice mcg/0.3 mL dose mcg/0.3 mL dose Influenza Virus 2020-02-25 Completed Universit y of Vaccine 00:00:00 [facility] influenza, influenza, 2020-02-25 Completed [facility] unspecified unspecified 00:00:00 Practice formulation formulation Influenza Virus 2020-02-25 Completed Universit y of Vaccine 00:00:00 [facility] influenza, influenza, 2019-03-12 Completed [facility] recombinant, recombinant, 11:20:00 Practice quadrIvalent,injecta quadrIvalent,injecta ble, preservative ble, preservative free free Influenza Virus 2019-03-12 Completed Universit y of Vaccine 00:00:00 [facility] Influenza Virus 2019-03-12 Completed Universit y of Vaccine 00:00:00 [facility] influenza, influenza, 2019-03-12 Completed [facility] unspecified unspecified 00:00:00 Practice formulation formulation Tdap Tdap 2018-06-19 Completed [facility] Family 14:21:00 Practice TDAP 2018-06-19 Completed University 00:00:00 [facility] TDAP 2018-06-19 Completed [facility] 00:00:00 [facility] influenza, influenza, 2018-02-13 Completed [facility] injectable, injectable, 15:26:00 Practice quadrivalent, quadrivalent, preservative free preservative free pneumococcal pneumococcal 2018-02-13 Completed [facility] Fa johann polysaccharide PPV23 polysaccharide PPV23 15:25:00 Practice Influenza Virus 2018-02-13 Completed Universit y of Vaccine Quad IM 3+ 00:00:00 [facility] Pneumococcal 2018-02-13 Completed University o f Polysaccharide, 00:00:00 [place] Med ical PPSV23 (PNEUMOVAX) Branch Influenza Virus 2018-02-13 Completed Universit y of Vaccine Quad IM 3+ 00:00:00 [facility] Branch Pneumococcal 2018-02-13 Completed University o f Polysaccharide, 00:00:00 [place] Med ical PPSV23 (PNEUMOVAX) Branch Pneumococcal 2017-09-06 Completed University o f Polysaccharide, 00:00:00 [place] Med ical PPSV23 (PNEUMOVAX) Branch Pneumococcal 2017-09-06 Completed University o f Polysaccharide, 00:00:00 [place] Med ical PPSV23 (PNEUMOVAX) Branch Pneumococcal 2017-09-06 Completed University o f Polysaccharide, 00:00:00 [place] Med ical PPSV23 (PNEUMOVAX) Branch Pneumococcal 2017-09-06 Completed University o f Polysaccharide, 00:00:00 [place] Med ical PPSV23 (PNEUMOVAX) Branch Pneumococcal 2017-09-06 Completed University o f Polysaccharide, 00:00:00 [place] Med ical PPSV23 (PNEUMOVAX) Branch Pneumococcal 2017-09-06 Completed University o f Polysaccharide, 00:00:00 [place] Med ical PPSV23 (PNEUMOVAX) Branch pneumococcal pneumococcal 2017-09-06 Completed [facility] Fa johann polysaccharide PPV23 polysaccharide PPV23 00:00:00 Practice Vital Signs Vital Name Observation Time Observation Value Comments Source BP Diastolic 2021-03-07 00:00:00 78 mm[Hg] [facility] Practice Height 2021-03-07 00:00:00 66 [in_i] [facility] BMI (Body Mass 2021-03-07 00:00:00 33.7 kg/m2 [facility] Practice BP Systolic 2021-03-07 00:00:00 140 mm[Hg] [facility] Body Weight 2021-03-07 00:00:00 209 [lb_av] [facility] BP Diastolic 2020-12-13 00:00:00 62 mm[Hg] [facility] Height 2020-12-13 00:00:00 66 [in_i] [facility] BMI (Body Mass 2020-12-13 00:00:00 33.9 kg/m2 [facility] BP Systolic 2020-12-13 00:00:00 116 mm[Hg] [facility] Body Weight 2020-12-13 00:00:00 210.1 [lb_av] [facility] BP Diastolic 2020-11-08 00:00:00 80 mm[Hg] [facility] Height 2020-11-08 00:00:00 66 [in_i] [facility] BMI (Body Mass 2020-11-08 00:00:00 34.5 kg/m2 [facility] BP Systolic 2020-11-08 00:00:00 150 mm[Hg] [facility] Body Weight 2020-11-08 00:00:00 214 [lb_av] [facility] BP Diastolic 2020-08-18 00:00:00 70 mm[Hg] [facility] [...] Practice Body Weight 2020-03-23 00:00:00 233 [lb_av] [facility] Systolic blood 2020-03-14 16:38:00 185 mm[Hg] Univer sity of pressure [place] [facility] Diastolic blood 2020-03-14 16:38:00 88 mm[Hg] Unive rsity of pressure [place] [facility] Heart rate 2020-03-14 16:38:00 90 /min [facility] [place] [facility] Body temperature 2020-03-14 16:38:00 36.28 [place] [facility] [place] [facility] Respiratory rate 2020-03-14 16:38:00 18 /min [facility] [place] [facility] Oxygen saturation in 2020-03-14 16:38:00 100 /min University of Arterial blood by [place] Evino lisa Pulse oximetry Branch Body weight 2020-03-14 09:37:00 111.403 kg [facility] [place] [facility] BMI 2020-03-14 09:37:00 39.64 kg/m2 [facility] [place] [facility] Body height 2020-03-10 20:46:00 167.6 cm [facility] [place] [facility] Systolic blood 2020-03-14 16:38:00 185 mm[Hg] Univer sity of pressure [place] [facility] Diastolic blood 2020-03-14 16:38:00 88 mm[Hg] Unive rsity of pressure [place] [facility] Heart rate 2020-03-14 16:38:00 90 /min [facility] [place] [facility] Body temperature 2020-03-14 16:38:00 36.28 [place] [facility] [place] [facility] Respiratory rate 2020-03-14 16:38:00 18 /min Univ ersity of [facility] Oxygen saturation in 2020-03-14 16:38:00 100 /min [facility] Arterial blood by [place] [facility] Pulse oximetry Branch Body weight 2020-03-14 09:37:00 111.403 kg [facility] [place] [facility] BMI 2020-03-14 09:37:00 39.64 kg/m2 [facility] Body height 2020-03-10 20:46:00 167.6 cm [facility] Height 2020-03-01 00:00:00 66 [in_i] [facility] BMI (Body Mass 2020-03-01 00:00:00 [...] Family Practice Height 2019-11-24 00:00:00 66 [in_i] [facility] BMI (Body Mass 2019-11-24 00:00:00 37.6 kg/m2 [facility] BP Systolic 2019-11-24 00:00:00 136 mm[Hg] [facility] Body Weight 2019-11-24 00:00:00 233 [lb_av] [facility] Systolic blood 2019-09-22 15:25:00 91 mm[Hg] Univer sity of pressure [facility] Diastolic blood 2019-09-22 15:25:00 59 mm[Hg] Unive rsity of [facility] Heart rate 2019-09-22 15:25:00 88 /min [facility] Body temperature 2019-09-22 15:25:00 36.39 [facility]ena [facility] rate 2019-09-22 15:25:00 20 /min [facility] Body height 2019-09-22 15:25:[address] [facility] Body weight 2019-09-22 15:25:00 93.441 kg [facility] BMI 2019-09-22 15:25:00 33.25 kg/m2 [facility] Oxygen saturation in 2019-09-22 15:25:00 98 /min [facility] Arterial blood by [facility] Pulse oximetry Branch Systolic blood 2019-09-22 15:25:00 91 mm[Hg] Univer sity of pressure [facility] Diastolic blood 2019-09-22 15:25:00 59 mm[Hg] Unive rsity of pressure [facility] Heart rate 2019-09-22 15:25:00 88 /min [facility] [place] [facility] [place] Body temperature 2019-09-22 15:25:00 36.39 Geena Univ [facility] Respiratory rate 2019-09-22 15:25:00 20 /min Univ ersity of [facility] Body height 2019-09-22 15:25:00 167.6 cm Universi ty of [facility] Body weight 2019-09-22 15:25:00 93.441 kg [facility] BMI 2019-09-22 15:25:00 33.25 kg/m2 Universi ty of [facility] Oxygen saturation in 2019-09-22 15:25:00 98 /min [facility] Arterial blood by [facility] Pulse oximetry Branch BP Diastolic 2019-08-12 00:00:00 60 mm[Hg] [facility] [...] Practice Body Weight 2019-03-12 00:00:00 201 [lb_av] [facility] Systolic blood 2019-01-09 20:00:00 141 mm[Hg] Univer sity of pressure [facility] Diastolic blood 2019-01-09 20:00:00 80 mm[Hg] Unive rsity of pressure [facility] Heart rate 2019-01-09 20:00:00 87 /min Universi ty of [facility] Respiratory rate 2019-01-09 20:00:00 16 /min Univ ersity of [facility] Oxygen saturation in 2019-01-09 20:00:00 96 /min [facility] Arterial blood by [facility] Pulse oximetry Branch Body temperature 2019-01-09 18:54:00 36.83 Geena [facility] ersity of [place] [facility] [place] Body height 2019-01-08 22:58:00 167.6 cm [facility] [place] [facility] [place] Body weight 2019-01-08 22:58:00 87.499 kg [facility] BMI 2019-01-08 22:58:00 31.13 kg/m2 Universi ty of [facility] Systolic blood 2019-01-09 20:00:00 141 mm[Hg] Univer sity of pressure [facility] Diastolic blood 2019-01-09 20:00:00 80 mm[Hg] Unive rsity of pressure [facility] Heart rate 2019-01-09 20:00:00 87 /min [facility] [place] [facility] [place] Respiratory rate 2019-01-09 20:00:00 16 /min [facility] Oxygen saturation in 2019-01-09 20:00:00 96 /min [facility] Arterial blood by [facility] Pulse oximetry Branch Body temperature 2019-01-09 18:54:00 36.83 Geena [facility]ity [facility] [place] [facility] [place] Body height 2019-01-08 22:58:00 167.6 cm [facility] Body weight 2019-01-08 22:58:00 87.499 kg [facility] BMI 2019-01-08 22:58:00 31.13 kg/m2 Universi ty [facility] BP Diastolic 2018-12-10 00:00:00 72 mm[Hg] [facility] Height 2018-12-10 00:00:00 66 [in_i] [facility] BMI (Body Mass 2018-12-10 00:00:00 32.1 kg/m2 [facility] BP Systolic 2018-12-10 00:00:00 118 mm[Hg] [facility] Body Weight 2018-12-10 00:00:00 198.8 [lb_av] [facility] BP Diastolic 2018-12-04 00:00:00 74 mm[Hg] [facility] Height 2018-12-04 00:00:00 66 [in_i] [facility] BMI (Body Mass 2018-12-04 00:00:00 32.1 kg/m2 [facility] BP Systolic 2018-12-04 00:00:00 138 mm[Hg] [facility] Body Weight 2018-12-04 00:00:00 198.8 [lb_av] [facility] Practice BP Diastolic 2018-08-13 00:00:00 66 mm[Hg] [facility] Practice Height 2018-08-13 00:00:00 66 [in_i] [facility] Practice BMI (Body Mass 2018-08-13 00:00:00 34.2 kg/m2 [facility] Family Index) Practice BP Systolic 2018-08-13 00:00:00 118 mm[Hg] [facility] Practice Body Weight 2018-08-13 00:00:00 211.8 [lb_av] [facility] Practice BP Diastolic 2018-06-19 00:00:00 78 mm[Hg] [facility] Practice Height 2018-06-19 00:00:00 66 [in_i] [facility] Practice BMI (Body Mass 2018-06-19 00:00:00 34.8 kg/m2 [facility] Family Index) Practice BP Systolic 2018-06-19 00:00:00 120 mm[Hg] [facility] Practice Body Weight 2018-06-19 00:00:00 215.4 [lb_av] [facility] Practice Procedures Procedure Date / Time Performing Clinician Source Performed XR, hand, 2 view 2020-12-13 00:00[facility] screening, digital, 2020-08-18 00:00:00 [facility] POCT GLUCOSE (AUTOMATED) 2020-03-14 16:42:00 Umang Macario [facility] CBC WITH DIFF 2020-03-14 14:39:00 Umang Macario o f [facility] POCT GLUCOSE (AUTOMATED) 2020-03-14 13:13:00 [facility] BASIC METABOLIC PANEL (NA, 2020-03-14 08:56:00 [facility] K, CL, CO2, GLUCOSE, BUN, Medica l Branch CREATININE, CA) POCT GLUCOSE (AUTOMATED) 2020-03-14 01:08:00 Umang Macario [facility] EKG-12 LEAD 2020-03-13 13:43:51 Karl [facility] BASIC METABOLIC PANEL (NA, 2020-03-13 09:55:00 [facility] K, CL, CO2, GLUCOSE, BUN, Medica l Branch CREATININE, CA) HEMOGLOBIN 2020-03-13 09:55:00 [facility] N-TERMINAL PRO-BNP 2020-03-13 09:55:00 [facility] POCT GLUCOSE (AUTOMATED) 2020-03-13 00:39:00 Umang Macario [facility] FERRITIN SERUM 2020-03-12 14:37:00 Renaldo [facility] BASIC METABOLIC PANEL (NA, 2020-03-12 14:37:00 Umang Macario [facility] K, CL, CO2, GLUCOSE, BUN, Medica l [place] CREATININE, CA) CBC WITH DIFF 2020-03-12 14:37:00 Umang Macario [facility] POCT GLUCOSE (AUTOMATED) 2020-03-12 12:40:00 Umang Macario [facility] URINE CULTURE 2020-03-12 10:30:00 Michael Rubio [facility] CREATININE, URINE RANDOM 2020-03-12 10:00:00 Umang Macario [facility] SODIUM, URINE RANDOM 2020-03-12 10:00:00 Umang Macario [facility] POCT GLUCOSE (AUTOMATED) 2020-03-12 00:25:00 Umang Macario [facility] POCT GLUCOSE (AUTOMATED) 2020-03-11 21:34:00 Umang Macario [facility] POCT GLUCOSE (AUTOMATED) 2020-03-11 16:22:00 Umang Macario [facility] POCT GLUCOSE (AUTOMATED) 2020-03-11 12:41:00 Umang Macario [facility] BASIC METABOLIC PANEL (NA, 2020-03-11 09:52:00 Glendy Sahu [facility] K, CL, CO2, GLUCOSE, BUN, Medica l Branch CREATININE, CA) CBC WITH DIFF 2020-03-11 09:52:00 Luis Alberto Glendy Patricia [facility] IRON PANEL 2020-03-11 09:51:00 Pj Corcoran [facility] POCT GLUCOSE (AUTOMATED) 2020-03-11 00:52:00 Umang Macario [facility] POCT GLUCOSE (AUTOMATED) 2020-03-10 21:54:00 Umang Macario [facility] US RETROPERITONEAL LIMITED 2020-03-10 20:16:54 Umang Macario [facility] EKG-12 LEAD 2020-03-10 19:57:49 [facility]EL 21 + LACTIC ACID 2020-03-10 19:17:00 Michael Rubio [facility] URINALYSIS 2020-03-10 18:46:00 [facility] EKG-12 LEAD 2020-03-10 18:45:24 Ramiro [facility] PHOSPHORUS 2020-03-10 18:31:00 [facility] CREAT[facility] KINASE 2020-03-10 18:31:00 [facility] URIC ACID 2020-03-10 18:31:00 Renaldo [facility] MAGNESIUM 2020-03-10 18:31:00 [facility] TROPONIN I 2020-03-10 18:31:00 Ramiro Michael [facility] THYROID STIMULATING 2020-03-10 18:31:00 [facility] HEPATIC FUNCTION PANEL 2020-03-10 18:31:00 Michael Rubio [facility] ([id number]) (ALB,T.PRO,BILI Medical Branch T,BU/BC,ALT,AST,ALK PHOS) BASIC METABOLIC PANEL (NA, 2020-03-10 18:31:00 Michael Rubio [facility] K, CL, CO2, GLUCOSE, BUN, Medica l Branch CREATININE, CA) LIPID PANEL (27125)(TOTAL 2020-03-10 18:31:00 Glendy Sahu [facility] CHOLESTEROL, Medical Branch TRIGLYCERIDES, HDL) PROTHROMBIN TIME / INR 2020-03-10 18:31:00 Michael Rubio [facility] ACTIVATED PARTIAL THRMPLAS 2020-03-10 18:31:00 [facility] N-TERMINAL PRO-BNP 2020-03-10 18:31:00 Michael Rubio [facility] COVID-19 (ID NOW RAPID 2020-03-10 18:31:00 Michael Rubio [facility] TESTING) Medical Branch LAB ONLY COVID 2020-03-10 18:31:00 Michael Rubio [facility] INTERPRETATION [facility] CBC WITH DIFF 2020-03-10 18:30:00 Ramiro Michael [facility] GLYCOSYLATED HEMOGLOBIN 2020-03-10 18:30:00 Glendy Sahu [facility] (A1C) [facility] EKG-12 LEAD 2020-03-10 18:22:57 Ramiro Michael [facility] EMERGENCY DEPARTMENT 2020-03-10 05:01:00 Doctor Unassigned, [facility] DOCUMENTS [place] [facility] [place] X-RAY OF CHEST 2 VIEW 2020-02-18 00:00:00 [facility], chest, w/ contrast 2020-02-18 00:00:00 [facility] POCT GLUCOSE (AUTOMATED) 2019-01-09 21:21:00 [facility] POCT GLUCOSE (AUTOMATED) 2019-01-09 18:49:00 [facility] EGD (ENDO) 2019-01-09 17:19:20 [facility] POCT GLUCOSE (AUTOMATED) 2019-01-09 12:27:00 Rafael Reardon [facility] MAGNESIUM 2019-01-09 10:20:00 Glendy Sahu [facility] BASIC METABOLIC PANEL (NA, 2019-01-09 10:20:00 Glendy Sahu [facility] K, CL, CO2, GLUCOSE, BUN, Medica l Branch CREATININE, CA) CBC WITH DIFFERENTIAL 2019-01-09 10:20:00 [facility] 2019-01-09 04:29:00 Glendy Sahu [facility] POCT GLUCOSE (AUTOMATED) 2019-01-09 00:50:00 Caron [facility]adou [facility] 1 VW 2019-01-08 19:44:28 Michael Rubio [facility] N-TERMINAL PRO-BNP 2019-01-08 19:32:00 Michael Rubio [facility] TROPONIN I 2019-01-08 19:32:00 Michael Rubio [facility] HEPATIC FUNCTION PANEL 2019-01-08 19:32:00 Michael Rubio [facility] ([id number]) ([facility] T,BU/BC,ALT,AST,ALK PHOS) BASIC METABOLIC PANEL (NA, 2019-01-08 19:32:00 Michael Rubio [facility] K, CL, CO2, GLUCOSE, BUN, Medica l Branch CREATININE, CA) CBC WITH DIFFERENTIAL 2019-01-08 19:32:00 Michael Rubio [facility] GLYCOSYLATED HEMOGLOBIN 2019-01-08 19:32:00 Glendy Sahu [facility] (A1C) [facility] PROTHROMBIN TIME / INR 2019-01-08 19:32:00 Michael Rubio [facility] ACTIVATED PARTIAL THRMPLAS 2019-01-08 19:32:00 [facility] TYPE AND SCREEN 2019-01-08 19:32:00 Michael Rubio [facility] EKG-12 LEAD 2019-01-08 19:26:57 Michael Rubio [facility] EKG-12 LEAD 2019-01-08 19:22:06 Michael Rubio [facility] NOTICE OF PRIVACY 2019-01-08 19:00:07 Doctor Unassigned, [facility] PRACTICES [place] [facility] Colonoscopy 2017-07-23 00:00:00 Eliana haile Practice Cholecystectomy (Gall 2017-05-27 00:00:00 [facility] Bladder Removal) Practice Total Hysterectomy 2004 00:00:00 Eliana ma Practice Colonoscopy & Polypectomy [facility] Plan of Care Planned Activity Planned Date Details Comments Source Future Appointment 2021-07-25 10:45:00 Thelma Moreno, [facility] [id number] [facility]; Practice [address], [place] [address] Future Appointment 2021-05-24 09:30:00 Thelma Moreno, [facility] [address] [facility]; Practice [address], [place] [address] Encounters Start End Encounter Admission Attending Care Care Encounter Source Date/Time Date/Time Type Type Clinicians Facility Department ID 2021-04-12 Outpatient Meek-Gor_M_ VFP VFP [id number] - Village 10:41:57 WAG 08301 Family Practic e 2021-04-12 Outpatient Meek-Gor_M_ VFP VFP [id number] - [facility] 10:32:35 WAG 83272 Family Practic e 2021-04-12 Outpatient Meek-Gor_M_ VFP VFP [id number] - [facility] 10:24:21 WAG 11372 Family Practic e 2021-04-12 Outpatient Meek-Gor_M_ VFP VFP [id number] - [facility] 09:46:39 WAG 55944 Family Practic e 2021-04-12 Outpatient Meek-Gor_M_ VFP VFP [id number] [facility] 09:40:04 WAG 82390 Family Practic e 2021-04-12 Outpatient Meek-Gor_M_ VFP VFP [id number] [facility] 09:18:19 WAG 41736 Family Practic e 2021-04-12 Outpatient Meek-Gor_M_ VFP VFP [id number] [facility] 08:47:38 WAG 10296 Family Practic e 2021-04-12 Outpatient Meek-Gor_M_ VFP VFP [id number] [facility] 08:12:50 WAG 15317 Family Practic e 2021-04-12 Outpatient Meek-Gor_M_ VFP VFP [id number] [facility] 08:03:09 WAG 28793 Family Practic e 2021-04-12 Outpatient Meek-Gor_M_ VFP VFP [id number] [facility] 07:27:40 WAG 09029 Family Practic e 2021-04-12 Outpatient Meek-Gor_M_ VFP VFP [id number] [facility] 07:20:52 WAG 59716 Family Practic e 2021-04-11 Outpatient Kidane_A VFP VFP [id number] [facility] 23:23:48 [id number] Family Practic e 2021-04-11 Outpatient Kidane_A VFP VFP [id number] [facility] 13:33:09 [id number] Family Practic e 2021-04-11 Outpatient Kidane_A VFP VFP [id number] [facility] 09:29:19 [id number] Family Practic e 2021-04-11 Outpatient Kidane_A VFP VFP [id number] [facility] 09:10:10 [id number] Family Practic e 2021-04-11 Outpatient Meek-Gor_M_ VFP VFP [id number] [facility] 06:52:26 WAG 17594 Family Practic e 2021-04-11 Outpatient Meek-Gor_M_ VFP VFP [id number] [facility] 06:47:21 WAMichele 65747 Family Practic e 2021-04-11 Outpatient Adejumo_K VFP VFP [id number] [facility] 03:16:01 [id number] Family Practic e 2021-04-11 Outpatient Adejumo_K VFP VFP [id number] [facility] 00:18:34 54313 Family Practic e 2021-04-10 Outpatient Meek-Gor_M_ VFP VFP [id number] [facility] 23:43:07 WAG 73680 Family Practic e 2021-04-10 Outpatient Adejumo_K VFP VFP [id number] [facility] 21:51:23 72943 Family Practic e 2021-04-10 Outpatient Kidane_A VFP VFP [id number] [facility] 20:06:12 [id number] Family Practic e 2021-04-10 Outpatient Meek-Gor_M_ VFP VFP [id number] [facility] 18:35:47 WAG 46967 Family Practic e 2021-04-10 Outpatient Adejumo_K VFP VFP [id number] [facility] 17:52:48 [id number] Family Practic e 2021-04-10 Outpatient Kidane_A VFP VFP [id number] [facility] 15:48:25 [id number] Family Practic e 2021-04-10 Outpatient Meek-Gor_M_ VFP VFP [id number] [facility] 12:18:52 WAG 03938 Family Practic e 2021-04-10 Outpatient Meek-Gor_M_ VFP VFP [id number] [facility] 10:06:27 WAG 37212 Family Practic e 2021-04-10 Outpatient Adejumo_K VFP VFP [id number] 02 [facility] 09:51:36 31527 Family Practic e 2021-04-10 Outpatient Meek-Gor_M_ VFP VFP [id number] [facility] 08:36:01 WAG 97446 Family Practic e 2021-04-10 Outpatient Meek-Gor_M_ VFP VFP [id number] [facility] 07:23:18 WAG 89054 Family Practic e 2021-04-10 Outpatient Adejumo_K VFP VFP [id number] [facility] 05:13:19 07501 Family Practic e 2021-04-10 Outpatient Adejumo_K VFP VFP [id number] [facility] 04:45:23 [id number] Family Practic e 2021-04-10 Outpatient Adejumo_K VFP VFP [id number] [facility] 03:31:30 [id number] Family Practic e 2021-04-10 Outpatient Meek-Gor_M_ VFP VFP [id number] [facility] 03:18:26 [place] [address] Family Practic e 2021-04-10 Outpatient Adejumo_K VFP VFP [id number] 02 [facility] 03:04:27 [id number] Family Practic e 2021-04-10 Outpatient Meek-Gor_M_ VFP VFP [id number] [facility] 02:27:46 WAG 12502 Family Practic e 2021-04-09 Outpatient Adejumo_K VFP VFP [id number] [facility] 10:12:59 [id number] Family Practic e 2021-04-09 Outpatient Adejumo_K VFP VFP [id number] [facility] 07:58:21 [id number] Family Practic e 2021-04-09 Outpatient Adejumo_K VFP VFP [id number] [facility] 03:28:16 16519 Family Practic e 2021-04-09 Outpatient Meek-Gor_M_ VFP VFP [id number] [facility] 00:41:39 WAG 35310 Family Practic e 2021-04-09 Outpatient Adejumo_K VFP VFP [id number] 02 [facility] 00:25:05 47752 Family Practic e 2021-04-08 Outpatient Meek-Gor_M_ VFP VFP [id number] [facility] 04:51:05 [facility] 39273 Family Practic e 2021-04-08 Outpatient Meek-Gor_M_ VFP VFP [id number] [facility] 01:39:26 [facility] 62069 Family Practic e 2021-04-08 Outpatient Adejumo_K VFP VFP [id number] [facility] 00:31:50 21561 Family Practic e 2021-04-08 Outpatient Adejumo_K VFP VFP [id number] [facility] 00:23:57 24744 Family Practic e 2021-04-07 Outpatient Adejumo_K VFP VFP [id number] [facility] 23:53:22 06720 Family Practic e 2021-04-07 Outpatient Adejumo_K VFP VFP [id number] [facility] 23:47:45 86500 Family Practic e 2021-04-07 Outpatient Adejumo_K VFP VFP [id number] [facility] 23:27:32 24495 Family Practic e 2021-04-07 Outpatient Adejumo_K VFP VFP [id number] [facility] 22:56:07 66845 Family Practic e 2021-04-07 Outpatient VFP VFP [id number] [facility] 22:48:26 61751 Family Practic e 2021-04-07 Outpatient Meek-Gor_M_ VFP VFP [id number] [facility] 22:27:01 [facility] [id number] Family Practic e 2021-04-07 Outpatient Adejumo_K VFP VFP [id number] [facility] 22:13:18 [id number] Family Practic e 2021-04-07 Outpatient Adejumo_K VFP VFP [id number] [facility] 21:53:14 16577 Family Practic e 2021-04-07 Outpatient Adejumo_K VFP VFP [id number] [facility] 18:51:45 [id number] Family Practic e 2021-04-07 Outpatient Adejumo_K VFP VFP [id number] 02 [facility] 18:18:47 53384 Family Practic e 2021-03-24 Emergency [facility] [id number] Univers 23:11:16 [facility] 2018-11-18 Outpatient BL BL [id number] MH BL 09:20:25 2021-03-17 2021-03-17 Thelma [facility] [place] - [id number] V illage 00:00:00 00:00:00 Duran: [facility] [address], [address]Care [address], [place] [address] , Ph. 2021-03-07 2021-03-07 Thelma Loo [facility] [place] - [id number] [facility] 00:00:00 00:00:00 Josh, [facility] Family MD: [id number] Medical [address], [facility] [address], [place] [address] , Ph. 2021-02-17 2021-02-17 Roselyn [facility] [place] - [id number] V illage 00:00:00 00:00:00 Avila: [facility] [address], [address], [place] [address] , Ph. 2021-01-16 2021-01-16 Roselyn [facility] [place] - [id number] V illage 00:00:00 00:00:00 Avila: [facility] [address], [address], [place] [address] , Ph. 2020-12-13 2020-12-13 Roselyn [facility] [place] - [id number] V illage 00:00:00 00:00:00 Avila: [facility] [address], [address], [place] [address] , Ph. 2020-11-23 2020-11-23 Domitila [facility] [place] - [id number] [facility] 00:00:00 00:00:00 Otubu: [facility] [address], [address], [place] [address] , Ph. 2020-11-08 2020-11-08 Maricarmen VFP [place] - [id number] [facility] 00:00:00 00:00:00 Gilda Pollock, Medical - Pract german MD: [id number] [facility], [address], [place] [address] , Ph. 2020-09-06 2020-09-06 Anjel VFP [place] - [id number] V illage 00:00:00 00:00:00 Ian: [facility] Natalie Bond [facility], [address], [place] [address] , Ph. 2020-08-18 2020-08-18 Maricarmen VFP [place] - [id number] [facility] 00:00:00 00:00:00 Gilda Pollock, Medical - Pract german MD: [id number] [address] [facility], [address], [place] [address] , Ph. 2020-08-08 2020-08-08 Outpatient Brittni BROWN [facility] [id number] Univers 08:10:00 08:10:00 DARWIN [facility] 2020-08-04 2020-08-04 Danielle [facility] [place] - [id number] V illage 00:00:00 00:00:00 Sharp: [facility] Natalie Bond [facility], [address], [place] [address] , Ph. 2020-07-18 2020-07-18 Outpatient Brittni [facility]OWN [facility] [id number] Univers 08:20:00 08:20:00 DARWIN [id number] [facility] 2020-07-18 2020-07-18 Outpatient Brittni BROWN [facility] [id number] Univers 08:20:00 08:20:00 DARWIN [facility] 2020-03-23 2020-03-23 [facility] [place] - [id number] [facility] 00:00:00 00:00:00 Gilda [facility] Maris, Medical - Pract ic : [id number] [address] [facility], [address], [place] [address] , Ph. 2020-03-16 2020-03-16 Pativanhannah [facility] [place] - [id number] [facility] 00:00:00 00:00:00 Eliana Mcgee CM: [id number] Medical - Pract ic [address]IRA[address]HOU[address]Care [facility], [facility] [address], [place] [address] , Ph. 2020-03-15 2020-03-15 Transition Kwame Sarah [id number] [facility] 00:00:00 00:00:00 of Care Karlee [place] [id number] [id number] [id number] [facility] [address] Branch 2020-03-15 2020-03-15 Transition Kwame Sarah [id number] 00:00:00 00:00:00 of Care Karlee Gaston [id number] [place] [id number] [facility] 2020-03-10 2020-03-14 [facility] [id number] [facility] 13:01:00 12:50:00 Encounter Umang Macario [id number] [id number] [id number] [facility] [address] Branch 2020-03-10 2020-03-14 [facility] [id number] 13:01:00 12:50:00 Encounter Umang Macario [id number] [place] [id number] [place] [id number] 2020-03-01 2020-03-01 Maricarmen [facility] [place] - [id number] [facility] 00:00:00 00:00:00 [facility] Maris, Medical - Pract ic MD: [id number] [address], [address], [place] [address] , Ph. 2020-02-29 2020-02-29 Geraldine [facility] [place] - [id number] [facility] 00:00:00 00:00:00 Eliana Mcgee CM: [id number] Medical - Pract ic Ronda MIRAAMANDA_Care e [facility], [address], [place] [address] , Ph. 2020-02-24 2020-02-26 [facility] [id number] [place] 00:00:00 00:00:00 JENNIFERA [address] 2020-02-18 2020-02-18 Maricarmen VFP [place] - [id number] [facility] 00:00:00 00:00:00 [facility], Medical - Pract ic MD: [id number] AIDEE_Suga [address], [address], [place] [address] , Ph. 2019-11-24 2019-11-24 Maricarmen VFP [place] - [id number] [facility] 00:00:00 00:00:00 [facility], Medical - Pract ic MD: [id number] VEGRARAXANDERNik_Suga e [address], [address], [place] [address] , Ph. 2019-09-24 2019-09-24 Telephone ROSELYN Lock [id number] [facility] 00:00:00 00:00:00 Shreya FIELDSY 350.1.13.10 [facility] 4.2.7.2.686 Reinier as [phone] [place] [address] [address] 2019-09-24 2019-09-24 Telephone ROSELYN Lock.2.095.776 [id number] 00:00:00 00:00:00 Shreya OLIVIA 350.1.13.10 [facility] 4.2.7.2.686 [id number] [facility] 2019-09-22 2019-09-22 Urgent Pob1, Acute Care Clinic [facility] 1. 2.840.114 [id number] [facility] 10:04:43 10:47:56 Care Katrin [facility] 350.1 .13.10 ity of [place] 4.2.7.2.686 Reinier as Professio [phone] Co dical [facility] [address] 2019-09-22 2019-09-22 Urgent Pob1, Acute [facility] 1.2.840.114 [id number] 10:04:43 10:47:56 Care [facility] 350.1.13.10 [place] 4.2.7.2.686 Professio [id number] nal [facility] Office [address] One 2019-09-22 2019-09-22 Outpatient R JONA [facility] [id number] [facility] 10:00:00 10:00:00 , KATRIN it y of [facility] 2019-08-12 2019-08-12 Maricarmen VFP [place] - [id number] [facility] 00:00:00 00:00:00 [facility], Medical - Pract ic MD: 67655 VM_HOU_Suga [address] [facility], [address], [place] [address] , Ph. 2019-06-09 2019-06-09 Outpatient [facility] 7510 [facility] 13:30:00 13:30:00 2019-03-12 2019-03-12 Maricarmen VFP [place] - [id number] [facility] 00:00:00 00:00:00 [facility] Practic MD: 9430 [facility] [address], [place] [address] , Ph. 2019-01-12 2019-01-12 Transition Kwame Murdock 1.2.840.114 [id number] [facility] 00:00:00 00:00:00 of Care Ashley Gaston 350.1.13.10 [place] 4[place]2.7.2.[place] [phone] [address] 2019-01-12 2019-01-12 Transition Kwame Murdock 1.2.840.114 [id number] 00:00:00 00:00:00 of Care Ashley Gaston 350.1.13.10 [place] 4.2.7.2.686 [id number] 403 2019-01-08 2019-01-09 Emergency Michael Rubio [place] 1.2.840. 114 [id number] [facility] 14:02:27 18:03:00 Movva, Rafael James 350.1.13.10 ity of [place] 4.2.7.2.686 [facility] [phone] [facility] [address] 2019-01-08 2019-01-09 Emergency Michael Rubio [facility] 1.2.840. 114 [id number] 14:27 18:03:00 Atiyava, Rafael [place] 350.1.13.10 [place] 4.2.7.2.686 [place] [id number] 08 2018-12-10 2018-12-10 [facility] [place] - [id number] [facility] 00:00:00 00:00:00 [facility] Adedeemo, Family Practic MD: 9430 Practice - e Lesia, [address], [place] [address] , Ph. 2018-12-04 2018-12-04 [facility] [place] - [id number] [facility] 00:00:00 00:00:00 [facility] Adephillip, Family Practic MD: 9430 Practice - e Lesia, [address], [place] [address] , Ph. 2018-08-13 2018-08-13 [facility] [place] - [id number] [facility] 00:00:00 00:00:00 [facility] Adejumo, Family Practic MD: 9430 Practice - e Lesia, [address], [place] [address] , Ph. 2018-06-19 2018-06-19 [facility] [place] - [id number] [facility] 00:00:00 00:00:00 [facility] Pratimaal [facility] MD: 9430 Practice - e Lesia, [facility] [address], [place] [address] , Ph. Results Test Description Test Time Test Comments Results Result Comments Source Comprehensive metabolic 1999 panel - Serum or Plasma 2021-02 10:09:00 Test Item Value Reference Range Interpretation Comme nts ALT (test code = ALT) 14 U/L 0-55 AST (test code = AST) 11 U/L 5-34 BUN (test code = BUN) 29.3 mg/dL 9.8-25.0 H alk phos (test code = alk phos) 121 unit/L 40-150 glucose (test code = glucose) 145 mg/dL 70-99 H albumin (test code = albumin) 3.3 g/dL 3.4-5.1 L creatinine (test code = creatinine) 2.25 mg/dL 0.57-1.11 H eGFR non- (test code = eGFR 22 mL/min/1.73m2 A non-) total bilirubin (test code = total bilirubin) 0.3 mg/dL 0.2-1.2 eGFR - (test code = eGFR - 26 mL/min/1.73m 2 A [place]) sodium (test code = sodium) 144 mEq/L 135-145 potassium (test code = potassium) 4.9 mEq/L 3.5-5.3 chloride (test code = chloride) 109 mmol/L 98-110 total protein (test code = total protein) 6.8 g/dL 6.1-8.2 calcium (test code = calcium) 9.8 mg/dL 8.4-10.4 CO2 (test code = CO2) 23.2 mmol/L 20.0-32.0 anion gap (test code = anion gap) 12 [facility] - Serum or Plasma 2021-03-08 10:09:00 Test Item Value Reference Range Interpretation Comments ALT (test code = ALT) 14 U/L 0-55 AST (test code = AST) 11 U/L 5-34 BUN (test code = BUN) 29.3 mg/dL 9.8-25.0 H alk phos (test code = alk 121 unit/L 40-150 phos) glucose (test code = 145 mg/dL 70-99 H glucose) albumin (test code = 3.3 g/dL 3.4-5.1 L albumin) creatinine (test code = 2.25 mg/dL 0.57-1.11 H creatinine) eGFR non- 22 mL/min/1.73m2 A (test code = eGFR non-) total bilirubin (test code = 0.3 mg/dL 0.2-1.2 total bilirubin) eGFR - 26 mL/min/1.73m2 A (test code = eGFR - ) sodium (test code = sodium) 144 mEq/L 135-145 potassium (test code = 4.9 mEq/L 3.5-5.3 potassium) chloride (test code = 109 mmol/L 98-110 chloride) total protein (test code = 6.8 g/dL 6.1-8.2 total protein) calcium (test code = 9.8 mg/dL 8.4-10.4 calcium) CO2 (test code = CO2) 23.2 mmol/L 20.0-32.0 anion gap (test code = anion 12 calc gap) [facility] 1995 panel - Serum or [id number] 09:49:00 Test Item Value Reference Range Interpretation Comments HDL (test code = HDL) 40 mg/dL L triglyceride (test code = 155 mg/dL <150 H triglyceride) VLDL (calculated) (test code = VLDL 31 mg/dL (calculated)) cholesterol/HDL ratio (test code = 3.0 mg/dL cholesterol/HDL ratio) non-HDL cholesterol (calculated) 81 mg/dL <160 (test code = non-HDL cholesterol (calculated)) cholesterol (test code = 121 mg/dL <200 cholesterol) Cholesterol in LDL [Mass/volume] in 50 mg/dL <130 Serum or Plasma (test code = 2089-1) [facility] 1995 panel - Serum or [id number] 09:49:00 Test Item Value Reference Range Interpretation Comments HDL (test code = HDL) 40 mg/dL L triglyceride (test code = 155 mg/dL <150 H triglyceride) VLDL (calculated) (test code = VLDL 31 mg/dL (calculated)) cholesterol/HDL ratio (test code = 3.0 mg/dL cholesterol/HDL ratio) non-HDL cholesterol (calculated) 81 mg/dL <160 (test code = non-HDL cholesterol (calculated)) cholesterol (test code = 121 mg/dL <200 cholesterol) Cholesterol in LDL [Mass/volume] in 50 mg/dL <130 Serum or Plasma (test code = 2089-1) [facility] in [id number] 19:00:00 Test Item Value Reference Range Interpretation Comments microalbumin random urine 217 ug/mL (test code = microalbumin random urine) creatinine random urine 139.1 mg/dL 20.0-320.0 (test code = creatinine random urine) microalbumin/creatinine 156 mcg/mg creat H (random urine) ratio calculated (test code = microalbumin/creatinine (random urine) ratio calculated) [facility]Mass Ratio] in [id number] 19:00:00 Test Item Value Reference Range Interpretation Comments microalbumin random urine 217 ug/mL (test code = microalbumin random urine) creatinine random urine 139.1 mg/dL 20.0-320.0 (test code = creatinine random urine) microalbumin/creatinine 156 mcg/mg creat H (random urine) ratio calculated (test code = microalbumin/creatinine (random urine) ratio calculated) [facility]/Hemoglobin.total in [id number] 18:42:00 Test Item Value Reference Range Interpretation Comments Hemoglobin A1c/Hemoglobin.total in 8.1 % 1.0-5.7 H Blood (test code = 4548-4) average blood glucose (calculation) 186 mg/dL (test code = average blood glucose (calculation)) [facility]Hemoglobin.total in [id number] 18:42:00 Test Item Value Reference Range Interpretation Comments Hemoglobin A1c/Hemoglobin.total in 8.1 % 1.0-5.7 H Blood (test code = 4548-4) average blood glucose (calculation) 186 mg/dL (test code = average blood glucose (calculation)) [facility]2020-03-14 16:54:00 Test Item Value Reference Range Interpretation Comments POCT GLU (test code = 4062503919) 232 mg/dL 70-110 H Lab Interpretation (test code = Abnormal 94069-6) [facility] WITH [id number] 15:11:00 Test Item Value Reference Range Interpretation Comments WBC (test code = See_Comment [Automated 6690-2) message] The sy stem which generated this result transmitted reference range : 4.30 - 11.10 10*3/?L. The reference range was not used to interpret this result as normal/abnormal . RBC (test code = See_Comment L [Automated 789-8) message] The sy stem which generated this result transmitted reference range : 3.93 - 5.25 10*6/?L. The reference range was not used to interpret this result as normal/abnormal . HGB (test code = 7.5 g/dL 11.6-15 L 718-7) HCT (test code = 23.6 % 35.7-45.2 L 4544-3) MCV (test code = 72.4 fL 80.6-95.5 L 787-2) MCH (test code = 23.0 pg 25.9-32.8 L 785-6) MCHC (test code = 31.8 g/dL 31.6-35.1 786-4) RDW-SD (test code = 43.8 fL 39-49.9 32240-2) RDW-CV (test code = 16.9 % 12-15.5 H 788-0) PLT (test code = See_Comment [Automated 777-3) message] The sy stem which generated this result transmitted reference range : 166 - 358 10*3/ ?L. The reference r minerva was not used to interpret this result as normal/abnormal . MPV (test code = 11.2 fL 9.5-12.9 13893-6) NRBC/100 WBC (test See_Comment [Automat ed code = 5652610935) message] The system which generated this result transmitted reference range : 0.0 - 10.0 /100 WBCs. The refer ence range was not u sed to interpret th is result as normal/abnormal . NRBC x10^3 (test code <0.01 See_Comment [Auto mated = 5396008349) message] The s ystem which generated this result transmitted reference range : 10*3/?L. The reference range was not used to interpret this result as normal/abnormal . GRAN MAT (NEUT) % 73.9 % (test code = 770-8) IMM GRAN % (test code 0.90 % = 5396819693) LYMPH % (test code = 15.7 % 736-9) MONO % (test code = 6.9 % 5905-5) EOS % (test code = 2.0 % 713-8) BASO % (test code = 0.6 % 706-2) GRAN MAT x10^3(ANC) 6.89 10*3/uL 1.88-7.09 (test code = 9239135888) IMM GRAN x10^3 (test 0.08 10*3/uL 0-0.06 H code = 7405372216) LYMPH x10^3 (test code 1.46 10*3/uL 1.32-3.29 = 731-0) MONO x10^3 (test code 0.64 10*3/uL 0.33-0.92 = 742-7) EOS x10^3 (test code = 0.19 10*3/uL 0.03-0.39 711-2) BASO x10^3 (test code 0.06 10*3/uL 0.01-0.07 = 704-7) Lab Interpretation Abnormal (test code = 19953-4) [facility]14 13:23:00 Test Item Value Reference Range Interpretation Comments POCT GLU (test code = 1803411895) 162 mg/dL 70-110 H Lab Interpretation (test code = Abnormal 07530-6) [facility] METABOLIC PANEL (NA, K, CL, CO2, GLUCOSE, BUN, CREATININE, CA)2020-03-14 13:13:00 Test Item Value Reference Range Interpretation Comments NA (test code = 137 mmol/L 135-145 6612641144) K (test code = 4.9 mmol/L 3.5-5 6015408429) CL (test code = 110 mmol/L 98-108 H 6635864672) CO2 TOTAL (test code = 22 mmol/L 23-31 L 2148370114) AGAP (test code = 2-16 1434039195) BUN (test code = 38 mg/dL 7-23 H 5994951317) GLUCOSE (test code = 133 mg/dL 70-110 H 8800584354) CREATININE (test code = 1.84 mg/dL 0.5-1.04 H 7183533928) CALCIUM (test code = 9.4 mg/dL 8.6-10.6 1379594634) eGFR Calculation mL/min/1.73m2 (Non-) (test code = 3038603193) eGFR Calculation mL/min/1.73m2 () (test code = 8954188615) PAT (test code = PAT) Association of Glomerular Filtration Rate (GFR) and Staging of Kidney Disease* + --+ --+ ------+| GFR (mL/min/1.73 m2) ?| With Kidney Damage ?| ?Without Kidney Damage+ --------+ --------+ +| ?>90 ?| ?Stage one ?| ? Normal ?+ ---+ ---+ -------+| ?60-89 ?| ?Stage two ?| ? Decreased GFR ? + --+ --+ ------+| ?30-59 ?| ?Stage three ?| ? Stage three ? + --+ --+ ------+| ?15-29 ?| ?Stage four ? | ? Stage four ?+ ---+ ---+ -------+| ?<15 (or dialysis) ? ?| ?Stage five ? | ? Stage five ?+ ---+ ---+ -------+ *Each stage assumes the associated GFR level has been in effect for at least three months. ?Stages 1 to 5, with or without kidney disease, indicate chronic kidney disease. Notes: Determination of stages one and two (with eGFR >59mL/min/1.73 m2) requires estimation of kidney damage for at least three months as defined by structural or functional abnormalities of the kidney, manifested by either:Pathological abnormalities or Markers of kidney damage (including abnormalities in the composition of the blood or urine or abnormalities in imaging tests). Lab Interpretation Abnormal (test code = 43629-6) [facility]2020-03-14 01:11:00 Test Item Value Reference Range Interpretation Comments POCT GLU (test code = 8228840646) 192 mg/dL 70-110 H Lab Interpretation (test code = Abnormal 66748-8) [facility] [id number] 20:45:00 Test Item Value Reference Range Interpretation Comments URINE CULTURE (test code <10,000 CFU/mL = 630-4) Gram-Positive Cocci [facility]AL [id number] 12:46:00 Test Item Value Reference Range Interpretation Comments NT-proBNP (test code 884 pg/mL See_Comment H [Autom ated = 1302738560) message] The system which generated this result transmitted reference range : <=125. The reference range was not used to interpret this result as normal/abnormal . PAT (test code = PAT) Biotin has been reported to cause a negative bias, interpret results relative to patient's use of biotin. Lab Interpretation Abnormal (test code = 98518-4) [facility]OL[facility] (NA, K, CL, CO2, GLUCOSE, BUN, CREATININE, CA)2020-03-13 12:37:00 Test Item Value Reference Range Interpretation Comments NA (test code = 140 mmol/L 135-145 6467326396) K (test code = 4.5 mmol/L 3.5-5 1605300269) CL (test code = 110 mmol/L 98-108 H 1362028547) CO2 TOTAL (test code = 27 mmol/L 23-31 5026102476) AGAP (test code = 2-16 0732273073) BUN (test code = 37 mg/dL 7-23 H 6337767843) GLUCOSE (test code = 128 mg/dL 70-110 H 5701949724) CREATININE (test code = 2.04 mg/dL 0.5-1.04 H 9017557127) CALCIUM (test code = 9.8 mg/dL 8.6-10.6 7687907573) eGFR Calculation mL/min/1.73m2 (Non-) (test code = 3854138117) eGFR Calculation mL/min/1.73m2 () (test code = 7307283643) PAT (test code = PAT) Association of Glomerular Filtration Rate (GFR) and Staging of Kidney Disease* + --+ --+ ------+| GFR (mL/min/1.73 m2) ?| With Kidney Damage ?| ?Without Kidney Damage+ --------+ --------+ +| ?>90 ?| ?Stage one ?| ? Normal ?+ ---+ ---+ -------+| ?60-89 ?| ?Stage two ?| ? Decreased GFR ? + --+ --+ ------+| ?30-59 ?| ?Stage three ?| ? Stage three ? + --+ --+ ------+| ?15-29 ?| ?Stage four ? | ? Stage four ?+ ---+ ---+ -------+| ?<15 (or dialysis) ? ?| ?Stage five ? | ? Stage five ?+ ---+ ---+ -------+ *Each stage assumes the associated GFR level has been in effect for at least three months. ?Stages 1 to 5, with or without kidney disease, indicate chronic kidney disease. Notes: Determination of stages one and two (with eGFR >59mL/min/1.73 m2) requires estimation of kidney damage for at least three months as defined by structural or functional abnormalities of the kidney, manifested by either:Pathological abnormalities or Markers of kidney damage (including abnormalities in the composition of the blood or urine or abnormalities in imaging tests). Lab Interpretation Abnormal (test code = 83414-5) [facility]2020-[facility]-18 11:12:00 Test Item Value Reference Range Interpretation Comments HGB (test code = 718-7) 7.8 g/dL 11.6-15 L Lab Interpretation (test code = Abnormal 81257-0) [facility]2020-03-13 01:53:00 Test Item Value Reference Range Interpretation Comments POCT GLU (test code = 9779732932) 181 mg/dL 70-110 H Lab Interpretation (test code = Abnormal 20378-0) [facility] Center[facility]ERR[facility]IN [id number] 18:36:00 Test Item Value Reference Range Interpretation Comments FERRITIN (test code = 150.0 ng/mL 11-264 3861312675) PAT (test code = PAT) Biotin has been reported to cause a negative bias, interpret results relative to patient's use of biotin. Lab Interpretation (test Normal code = 78088-1) [facility] (NA, K, CL, CO2, GLUCOSE, BUN, CREATININE, CA)2020-03-12 15:04:00 Test Item Value Reference Range Interpretation Comments NA (test code = 140 mmol/L 135-145 9507342813) K (test code = 4.3 mmol/L 3.5-5 1089981722) CL (test code = 106 mmol/L 98-108 2188998919) CO2 TOTAL (test code = 26 mmol/L 23-31 1130085907) AGAP (test code = 2-16 1066461890) BUN (test code = 45 mg/dL 7-23 H 7313077466) GLUCOSE (test code = 170 mg/dL 70-110 H 1757825397) CREATININE (test code = 2.28 mg/dL 0.5-1.04 H 4811792367) CALCIUM (test code = 9.7 mg/dL 8.6-10.6 3392011948) eGFR Calculation mL/min/1.73m2 (Non-) (test code = 1029326602) eGFR Calculation mL/min/1.73m2 () (test code = 7029020498) PAT (test code = PAT) Association of Glomerular Filtration Rate (GFR) and Staging of Kidney Disease* + --+ --+ ------+| GFR (mL/min/1.73 m2) ?| With Kidney Damage ?| ?Without Kidney Damage+ --------+ --------+ +| ?>90 ?| ?Stage one ?| ? Normal ?+ ---+ ---+ -------+| ?60-89 ?| ?Stage two ?| ? Decreased GFR ? + --+ --+ ------+| ?30-59 ?| ?Stage three ?| ? Stage three ? + --+ --+ ------+| ?15-29 ?| ?Stage four ? | ? Stage four ?+ ---+ ---+ -------+| ?<15 (or dialysis) ? ?| ?Stage five ? | ? Stage five ?+ ---+ ---+ -------+ *Each stage assumes the associated GFR level has been in effect for at least three months. ?Stages 1 to 5, with or without kidney disease, indicate chronic kidney disease. Notes: Determination of stages one and two (with eGFR >59mL/min/1.73 m2) requires estimation of kidney damage for at least three months as defined by structural or functional abnormalities of the kidney, manifested by either:Pathological abnormalities or Markers of kidney damage (including abnormalities in the composition of the blood or urine or abnormalities in imaging tests). Lab Interpretation Abnormal (test code = 13006-1) [facility] WITH [id number] 14:51:00 Test Item Value Reference Range Interpretation Comments WBC (test code = See_Comment [Automated 6690-2) message] The sy stem which generated this result transmitted reference range : 4.30 - 11.10 10*3/?L. The reference range was not used to interpret this result as normal/abnormal . RBC (test code = See_Comment [Automated 789-8) message] The sy stem which generated this result transmitted reference range : 3.93 - 5.25 10*6/?L. The reference range was not used to interpret this result as normal/abnormal . HGB (test code = 9.1 g/dL 11.6-15 L 718-7) HCT (test code = 28.2 % 35.7-45.2 L 4544-3) MCV (test code = 71.6 fL 80.6-95.5 L 787-2) MCH (test code = 23.1 pg 25.9-32.8 L 785-6) MCHC (test code = 32.3 g/dL 31.6-35.1 786-4) RDW-SD (test code = 43.1 fL 39-49.9 08096-7) RDW-CV (test code = 16.7 % 12-15.5 H 788-0) PLT (test code = See_Comment [Automated 777-3) message] The sy stem which generated this result transmitted reference range : 166 - 358 10*3/ ?L. The reference r minerva was not used to interpret this result as normal/abnormal . MPV (test code = 10.7 fL 9.5-12.9 17991-7) NRBC/100 WBC (test See_Comment [Automat ed code = 5231562461) message] The system which generated this result transmitted reference range : 0.0 - 10.0 /100 WBCs. The refer ence range was not u sed to interpret th is result as normal/abnormal . NRBC x10^3 (test code <0.01 See_Comment [Auto mated = 9160685006) message] The s ystem which generated this result transmitted reference range : 10*3/?L. The reference range was not used to interpret this result as normal/abnormal . GRAN MAT (NEUT) % 72.4 % (test code = 770-8) IMM GRAN % (test code 1.10 % = 8455445423) LYMPH % (test code = 17.1 % 736-9) MONO % (test code = 6.4 % 5905-5) EOS % (test code = 2.4 % 713-8) BASO % (test code = 0.6 % 706-2) GRAN MAT x10^3(ANC) 5.91 10*3/uL 1.88-7.09 (test code = 3442371740) IMM GRAN x10^3 (test 0.09 10*3/uL 0-0.06 H code = 6083170637) LYMPH x10^3 (test code 1.40 10*3/uL 1.32-3.29 = 731-0) MONO x10^3 (test code 0.52 10*3/uL 0.33-0.92 = 742-7) EOS x10^3 (test code = 0.20 10*3/uL 0.03-0.39 711-2) BASO x10^3 (test code 0.05 10*3/uL 0.01-0.07 = 704-7) Lab Interpretation Abnormal (test code = 98532-8) [facility]2020-[facility]12 13:06:00 Test Item Value Reference Range Interpretation Comments POCT GLU (test code = 8707241330) 139 mg/dL 70-110 H Lab Interpretation (test code = Abnormal 61828-6) [facility] URINE [id number] 10:59:00 Test Item Value Reference Range Interpretation Comments NA URINE (test code = 9415382045) 94 mmol/L [facility], URINE [id number] 10:58:00 Test Item Value Reference Range Interpretation Comments CREAT U (test code = 4959062771) 55.8 mg/dL [facility] ONLY COVID [id number] 02:15:00COVID DMT InterpretationInterpretation/Recommendations\\nTests (PCR) for Active Infection by COVID-19Virus: This patient has tested negative for the COVID-19 virus on two occasions. ?For approximatelytwo-thirds of patients with a negative test result who were tested only once, the patient is truly negative and has not been infected with the COVID-19 virus. However, for those tested using a nasopharyngeal sample, each time the PCR test is performed there is approximately a [id number] chance the patient had been infected and the result of the test is a false negative. This occurs because the virus is predominantly in the lung and out of reach of the nasopharyngeal swab. Importantly, this patient has tested negative twice. Especially if there were minimal or no symptoms of the infection, this makes a false negative result less likely for this patient, and much more likely that the patient has not been infected with the COVID-19 virus. Tests for IgM and/or IgG Antibodies to COVID- 19 Virus: A. ?A test for IgM antibody to the COVID-19 virus would be highly informative at this time. IgM antibodies to the COVID-19 virus identified in a high performing test, usually an DEIDRE or chemiluminescence based assay, should appear in most patients who are truly infected within approximately one week from the onset of symptoms, and in nearly all patients by 2 to 3 weeks after symptoms begin. If the IgM test is positive, even if the PCR tests for active infection were negative, it is highly probable that the patient has been infected with the virus at some point. B. ?A test for IgG antibodies to the COVID-19 virus was not performed and ?would also be informative if the IgM antibody test is positive, when performed. The sample for the IgG antibody test should be collected 2 or more weeks post onset of symptoms. The test for IgM and IgG antibodies can be performed using a single blood sample. ?It is the IgG antibodies that can confer long-term immunity to infectious agents. However, at this time, it is not known if the production of IgG antibodies indicates whether the patient is immune to future infections with the COVID-19 virus. It is also not known how long IgG antibodies to the COVID-19 virus persist, and therefore the length of immunity to future COVID-19 infections. C. ?Although it is uncommon, some patients cannot ever mount an antibody response to infectious agents, such as COVID-19. If there are persistently negative results for IgM and IgG antibodies, this may be the explanation.[facility] LABORATORY SERVICESCOVID WfxxukeDIUM-SeH-7 PCR (no units) ? ? ?Date ? Value ?03/07/2020 ? Not Detected ?09/16/2019 ? Not Detected ? [facility]Un[facility] PO[facility] GLUCOSE (AUTOMATED)2020-03-12 01:48:00 Test Item Value Reference Range Interpretation Comments POCT GLU (test code = 3840058940) 141 mg/dL 70-110 H Lab Interpretation (test code = Abnormal 99711-7) [facility]-11 21:43:00 Test Item Value Reference Range Interpretation Comments POCT GLU (test code = 2060410062) 145 mg/dL 70-110 H Lab Interpretation (test code = Abnormal 02943-9) [facility] GLUCOSE (AUTOMATED)2020-03-11 16:32:00 Test Item Value Reference Range Interpretation Comments POCT GLU (test code = 1678864124) 206 mg/dL 70-110 H Lab Interpretation (test code = Abnormal 62173-5) [facility]2020-03-11 13:04:00 Test Item Value Reference Range Interpretation Comments POCT GLU (test code = 6361350123) 119 mg/dL 70-110 H Lab Interpretation (test code = Abnormal 82414-7) [facility] (NA, K, CL, CO2, GLUCOSE, BUN, CREATININE, CA)2020-03-11 11:51:00 Test Item Value Reference Range Interpretation Comments NA (test code = 139 mmol/L 135-145 3169470090) K (test code = 4.5 mmol/L 3.5-5 2856738071) CL (test code = 105 mmol/L 98-108 7145835146) CO2 TOTAL (test code = 26 mmol/L 23-31 5260440582) AGAP (test code = 2-16 0708883199) BUN (test code = 68 mg/dL 7-23 H 2098306809) GLUCOSE (test code = 112 mg/dL 70-110 H 4550939965) CREATININE (test code = 2.87 mg/dL 0.5-1.04 H 3652571701) CALCIUM (test code = 9.2 mg/dL 8.6-10.6 0045527404) eGFR Calculation mL/min/1.73m2 (Non-) (test code = 1901498270) eGFR Calculation mL/min/1.73m2 () (test code = 0986308390) PAT (test code = PAT) Association of Glomerular Filtration Rate (GFR) and Staging of Kidney Disease* + --+ --+ ------+| GFR (mL/min/1.73 m2) ?| With Kidney Damage ?| ?Without Kidney Damage+ --------+ --------+ +| ?>90 ?| ?Stage one ?| ? Normal ?+ ---+ ---+ -------+| ?60-89 ?| ?Stage two ?| ? Decreased GFR ? + --+ --+ ------+| ?30-59 ?| ?Stage three ?| ? Stage three ? + --+ --+ ------+| ?15-29 ?| ?Stage four ? | ? Stage four ?+ ---+ ---+ -------+| ?<15 (or dialysis) ? ?| ?Stage five ? | ? Stage five ?+ ---+ ---+ -------+ *Each stage assumes the associated GFR level has been in effect for at least three months. ?Stages 1 to 5, with or without kidney disease, indicate chronic kidney disease. Notes: Determination of stages one and two (with eGFR >59mL/min/1.73 m2) requires estimation of kidney damage for at least three months as defined by structural or functional abnormalities of the kidney, manifested by either:Pathological abnormalities or Markers of kidney damage (including abnormalities in the composition of the blood or urine or abnormalities in imaging tests). Lab Interpretation Abnormal (test code = 23689-3) [facility] [id number] 11:50:00 Test Item Value Reference Range Interpretation Comments IRON (test code = 50 ug/dL 50-160 Slight hem olysis 3094904516) TIBC (test code = 268 ug/dL 250-410 8852670645) % FE SAT (test code = 19 % 20-50 L 8189024459) Lab Interpretation (test Abnormal code = 02505-5) [facility] with Pxmsdfcuybeq5363-39-65 11:11:00 Test Item Value Reference Range Interpretation Comments WBC (test code = See_Comment [Automated 6690-2) message] The sy stem which generated this result transmitted reference range : 4.30 - 11.10 10*3/?L. The reference range was not used to interpret this result as normal/abnormal . RBC (test code = See_Comment L [Automated 789-8) message] The sy stem which generated this result transmitted reference range : 3.93 - 5.25 10*6/?L. The reference range was not used to interpret this result as normal/abnormal . HGB (test code = 8.6 g/dL 11.6-15 L 718-7) HCT (test code = 27.4 % 35.7-45.2 L 4544-3) MCV (test code = 72.1 fL 80.6-95.5 L 787-2) MCH (test code = 22.6 pg 25.9-32.8 L 785-6) MCHC (test code = 31.4 g/dL 31.6-35.1 L 786-4) RDW-SD (test code = 43.5 fL 39-49.9 43803-9) RDW-CV (test code = 16.7 % 12-15.5 H 788-0) PLT (test code = See_Comment [Automated 777-3) message] The sy stem which generated this result transmitted reference range : 166 - 358 10*3/ ?L. The reference r minerva was not used to interpret this result as normal/abnormal . MPV (test code = 11.7 fL 9.5-12.9 50710-4) NRBC/100 WBC (test See_Comment [Automat ed code = 7022429518) message] The system which generated this result transmitted reference range : 0.0 - 10.0 /100 WBCs. The refer ence range was not u sed to interpret th is result as normal/abnormal . NRBC x10^3 (test code <0.01 See_Comment [Auto mated = 6889978959) message] The s ystem which generated this result transmitted reference range : 10*3/?L. The reference range was not used to interpret this result as normal/abnormal . GRAN MAT (NEUT) % 66.2 % (test code = 770-8) IMM GRAN % (test code 0.60 % = 3685628058) LYMPH % (test code = 20.5 % 736-9) MONO % (test code = 8.4 % 5905-5) EOS % (test code = 3.7 % 713-8) BASO % (test code = 0.6 % 706-2) GRAN MAT x10^3(ANC) 5.79 10*3/uL 1.88-7.09 (test code = 1829634458) IMM GRAN x10^3 (test 0.05 10*3/uL 0-0.06 code = 0687981805) LYMPH x10^3 (test code 1.79 10*3/uL 1.32-3.29 = 731-0) MONO x10^3 (test code 0.73 10*3/uL 0.33-0.92 = 742-7) EOS x10^3 (test code = 0.32 10*3/uL 0.03-0.39 711-2) BASO x10^3 (test code 0.05 10*3/uL 0.01-0.07 = 704-7) Lab Interpretation Abnormal (test code = 00942-2) [facility] GLUCOSE (AUTOMATED)2020-03-11 01:10:00 Test Item Value Reference Range Interpretation Comments POCT GLU (test code = 7020336330) 155 mg/dL 70-110 H Lab Interpretation (test code = Abnormal 68341-9) [facility] CenterThyroid Stimulating Hormone (TSH)2020-03-10 23:08:00 Test Item Value Reference Range Interpretation Comments TSH (test code = See_Comment [Automated message] 5266391650) The system [employer] generated this result transmitted ref erence range: 0.45 - 4 .70 mIU/L. The refe rence range was not u sed to interpret this result as normal/abnor mal. Lab Interpretation (test Normal code = 83796-6) [facility] GLUCOSE (AUTOMATED)2020-03-10 21:58:00 Test Item Value Reference Range Interpretation Comments POCT GLU (test code = 8065373959) 167 mg/dL 70-110 H Lab Interpretation (test code = Abnormal 02490-9) [facility] CenterPhosphorus Cwlac9814-11-31 21:42:00 Test Item Value Reference Range Interpretation Comments PHOSPHORUS (test code = 7017770695) 4.2 mg/dL 2.5-5 Lab Interpretation (test code = Normal 74726-7) [facility] CenterMagnesium [id number] 21:42:00 Test Item Value Reference Range Interpretation Comments MAGNESIUM (test code = 2149400374) 2.6 mg/dL 1.7-2.4 H Lab Interpretation (test code = Abnormal 63462-4) [facility] CenterGlycosylated Hemoglobin (A1C)2020-03-10 21:41:00 Test Item Value Reference Range Interpretation Comments HGB A1C (test code = 6.3 % 4-6 H 4548-4) PAT (test code = PAT) %A1C (NGSP) Interpretation (ADA)4.8-5.6 ? ? Normal or (Non-Diabetic Range)5.7-6.4 ? ? Increased Risk (Pre-Diabetic)>6.5 ?Diabetes Indicated Lab Interpretation Abnormal (test code = 28564-4) [facility] CenterLipid Panel (Total Cholesterol, Triglycerides, HDL) - [id number] 21:36:00 Test Item Value Reference Range Interpretation Comments CHOL (test code = 137 mg/dL 120-200 0765612901) HDL (test code = 41 mg/dL >50 L 7154814352) HDLC RATIO (test code = See_Comment [Au tomated message] 9455809276) The system [employer] generated this result transmit jojo reference range : <=4.5. The refe rence range was not u sed to interpret th is result as normal/abnormal . TRIG (test code = 179 mg/dL 30-170 H 2204937848) LDL CHOL (test code = 60 mg/dL See_Comment [Auto mated message] 89855-6) The system [employer] generated this result transmit jojo reference range : <=160. The refe rence range was not u sed to interpret th is result as normal/abnormal . VLDL (test code = 36 mg/dL 5-60 2900902471) Lab Interpretation (test Abnormal code = 26970-6) [facility] CenterUS RETROPERITONEAL [id number] 20:19:21 HISTORY: ROOPA. TECHNIQUE: Both kidneys are evaluated in multiple planes with the patientin different positions. FINDINGS: RIGHT KIDNEY: Measures 9.4 x 4.6 x 5.2 cm with cortical thicknessmeasuring up to 13 mm. No hydronephrosis or perinephric fluid collectiondetected. Cortex showed diffuse increased ec hogenicity. LEFT KIDNEY: Measures 9.4 x 5.3 x 5.6 cm in size with cortical thicknessmeasuring up to 10-11 mm. ?No perinephric fluid collection. Diffuseincreased echogenicity of the cortex noted and there is a slightlyirregular shaped 16 x 12 mm cyst in the anterolateral upper left kidney. CONCLUSIONS:Smaller than average size kidneys with diffuse increasedechogenicity of the cortex of both kidneys and an irregular shaped cyst inthe left kidney. Findings are consistent with chronic medical kidneydisease. No hydronephrosis.[facility], Radiant Results Inft User - 03/10/2020 3:20 PM CDTHISTORY: ROOPA.TECHNIQUE: Both kidneys are evaluated in multiple planes with the patientin different positions. FINDINGS: RIGHT KIDNEY: Measures 9.4 x 4.6 x 5.2 cm with cortical thicknessmeasuring up to 13 mm. No hydronephrosis or perinephric fluid collectiondetected. Cortex showed diffuse increased echogenicity.LEFT KIDNEY: Measures 9.4 x 5.3 x 5.6 cm in size with cortical thicknessmeasuring up to 10-11 mm. No perinephric fluid collection. Diffuseincreased echogenicity of the cortex noted and there is a slightlyirregular shaped 16 x 12 mm cyst in the anterolateral upper left kidney.CONCLUSIONS: Smaller than average size kidneys with diffuse increasedechogenicity of the cortex of both kidneys and an irregular shaped cyst inthe left kidney. Findings are consistent with chronic medical kidneydisease. No hydronephrosis.[facility] CREATINE [id number] 20:09:00 Test Item Value Reference Range Interpretation Comments CK (test code = 3832022241) 45 U/L 33-194 Lab Interpretation (test code = Normal 18147-7) [facility] CenterURIC [id number] 20:09:00 Test Item Value Reference Range Interpretation Comments URIC ACID (test code = 3206505220) 8.5 mg/dL 2.9-6 H Lab Interpretation (test code = Abnormal 54700-5) [facility] CenterAC PANEL 21 + LACTIC [id number] 19:24:00 Test Item Value Reference Range Interpretation Comments PH (test code = 7.32-7.42 2551096067) PCO2 CAMILA (test code = See_Comment [Auto mated 8856253383) message] The sy stem which generated this result transmitted reference range : 41 - 51 mmHg. The reference range was not used to interpret this result as normal/abnormal . PO2 CAMILA (test code = See_Comment [Autom ated 4230205489) message] The sy stem which generated this result transmitted reference range : 25 - 40 mmHg. The reference range was not used to interpret this result as normal/abnormal . HCO3 CAMILA (test code = See_Comment [Auto mated 3481006842) message] The sy stem which generated this result transmitted reference range : 24 - 28 mEq/L. The reference range was not used to interpret this result as normal/abnormal . AC VBE(BEAKER) (test mEq/L code = 9074972589) THB CAMILA (test code = 10.7 g/dL 12-16 L 6435350041) %O2HB CAMLIA (test code = 46.4 % 52-63 L 4083362871) %COHB CAMILA (test code = 1.5 % 0-1.5 2407343428) %METHB CAMILA (test code = 0.3 % 0.4-1.5 L 9639476447) VOL%O2 CAMILA (test code = 7.0 % 6-12 1430348703) NA (test code = 139 mmol/L 135-145 7938365467) K+ (test code = 4.4 mmol/L 3.5-5 8655879476) AC CA IONZ (test code = 4.50 mg/dL 4.5-5.3 8330940417) GLUCOSE (test code = 157 mg/dL 70-110 H 8405784573) LACTIC ACID (test code 1.77 mmol/L = 6932667253) Lab Interpretation Abnormal (test code = 65279-8) [facility] CenterTroponin [id number] 19:13:00 Test Item Value Reference Range Interpretation Comments TROPONIN I (test 0.021 ng/mL See_Comment [Automated code = 2876363866) message] The system which generated this result transmitted reference range : <=0.034. The reference range was not used to interpret this result as normal/abnormal . PAT (test code = Equal or Less than PAT) 0.034 ng/ml---Normal ?Note: Cardiac troponin begins to rise 3-4 hours after the onset of ischemia. Repeat in 4-6 hours if the sample was drawn within 3-4 hours of the onset of the symptom and found normal. Between 0.035 and 0.120 ng/mL--- Borderline. Questionable myocardial injury or necrosis ? ?Note: Serial measurement may be necessary to confirm or exclude the diagnosis of myocardial injury or necrosis; Clinical correlation (symptoms, EKGs, imaging studies, and others) required; Repeat in 4-6 hours if clinically indicated. ? Equal or Higher than 0.121 ng/mL---Abnormal. Myocardial Injury or Necrosis Likely ? Biotin has been reported to cause a negative bias, interpret results relative to patient's use of biotin. ? Lab Interpretation Normal (test code = 57210-7) [facility] CenterN-TERMINAL [id number] 19:10:00 Test Item Value Reference Range Interpretation Comments NT-proBNP (test code 1470 pg/mL See_Comment H [Autom ated = 4265603416) message] The system which generated this result transmitted reference range : <=125. The reference range was not used to interpret this result as normal/abnormal . PAT (test code = PAT) Biotin has been reported to cause a negative bias, interpret results relative to patient's use of biotin. Lab Interpretation Abnormal (test code = 87724-4) [facility] CenterUrinalysis2020-10-15 19:10:00 Test Item Value Reference Range Interpretation Comments APPEARANCE (test code Slightly Cloudy Clear A = 7836908353) COLOR (test code = Yellow Yellow 9965925996) PH (test code = 4.8-8.0 8689669366) SP GRAVITY (test code 1.003-1.030 = 1351566823) GLU U QUAL (test code Negative Negative = 7988086086) BLOOD (test code = Large Negative A 5151214061) KETONES (test code = Negative Negative 8621730661) PROTEIN (test code = Negative Negative 2887-8) UROBILIN (test code = 0.2 mg/dL See_Comment [Auto mated 5051303740) message] The system which generated this result transmit jojo reference range : 0-1.0 mg/dL. Th e reference range was not used to interpret this result as normal/abnormal . BILIRUBIN (test code Negative Negative = 2722573453) NITRITE (test code = Negative Negative 9552987308) [place] (test code Small Negative A = 2100313800) RBC/HPF (test code = See_Comment H [Autom ated 2573488878) message] The system which generated this result transmit jojo reference range : 0 - 3 HPF. The reference range was not used to interpret this result as normal/abnormal . WBC/HPF (test code = See_Comment [Autom ated 2495810445) message] The system which generated this result transmit jojo reference range : 0 - 5 HPF. The reference range was not used to interpret this result as normal/abnormal . BACTERIA (test code = Many Negative A 0305932754) SQ EPITH (test code = See_Comment H [Auto mated 1537239833) message] The system which generated this result transmit jojo reference range : <=1 HPF. The reference range was not used to interpret this result as normal/abnormal . Lab Interpretation Abnormal (test code = 14293-8) [facility] CenterCOVID[facility] (ID NOW RAPID TESTING)2020-03-10 19:04:00 Test Item Value Reference Range Interpretation Comments SARS-CoV-2 Rapid ID NOW Not Detected Not Detected (test code = 62742-5) PAT (test code = PAT) ID NOW COVID-19 Assay is an isothermal nucleic acid amplification test intended for the qualitative detection of nucleic acid from SARS-CoV-2 viral RNA in nasopharyngeal (COMBO WELDER) specimens. It is used under Emergency Use Authorization (EUA) by FDA. The limit of detection (LOD) of the assay is 125 Genome Equivalents/mL. A positive result is indicative of the presence of SARS-CoV-2 RNA. ?Clinical correlation with patient history and other diagnostic information is necessary to determine patient infection status. A negative (Not Detected) result does not preclude SARS-CoV-2 infection. In patients with clinical symptoms and other tests that are consistent with SARS-CoV-2 infection, negative results should be treated as presumptive negative and a new specimen should be tested with alternative PCR molecular test. Invalid: Please collect a new specimen for repeat patient testing if clinically indicated. Lab Interpretation Normal (test code = 82001-5) [facility] Metabolic Panel (NA, K, CL, CO2, GLUCOSE, BUN, CREATININE, CA)2020-03-10 19:02:00 Test Item Value Reference Range Interpretation Comments NA (test code = 140 mmol/L 135-145 4502661778) K (test code = 4.5 mmol/L 3.5-5 0747114612) CL (test code = 98 mmol/L 98-108 8560270112) CO2 TOTAL (test code = 31 mmol/L 23-31 4365019098) AGAP (test code = 2-16 3840056563) BUN (test code = 65 mg/dL 7-23 H 3288584452) GLUCOSE (test code = 124 mg/dL 70-110 H 2291496183) CREATININE (test code = 3.30 mg/dL 0.5-1.04 H 8814411970) CALCIUM (test code = 10.5 mg/dL 8.6-10.6 7015142400) eGFR Calculation mL/min/1.73m2 (Non-) (test code = 9988589839) eGFR Calculation mL/min/1.73m2 () (test code = 7182648570) PAT (test code = PAT) Association of Glomerular Filtration Rate (GFR) and Staging of Kidney Disease* + --+ --+ ------+| GFR (mL/min/1.73 m2) ?| With Kidney Damage ?| ?Without Kidney Damage+ --------+ --------+ +| ?>90 ?| ?Stage one ?| ? Normal ?+ ---+ ---+ -------+| ?60-89 ?| ?Stage two ?| ? Decreased GFR ? + --+ --+ ------+| ?30-59 ?| ?Stage three ?| ? Stage three ? + --+ --+ ------+| ?15-29 ?| ?Stage four ? | ? Stage four ?+ ---+ ---+ -------+| ?<15 (or dialysis) ? ?| ?Stage five ? | ? Stage five ?+ ---+ ---+ -------+ *Each stage assumes the associated GFR level has been in effect for at least three months. ?Stages 1 to 5, with or without kidney disease, indicate chronic kidney disease. Notes: Determination of stages one and two (with eGFR >59mL/min/1.73 m2) requires estimation of kidney damage for at least three months as defined by structural or functional abnormalities of the kidney, manifested by either:Pathological abnormalities or Markers of kidney damage (including abnormalities in the composition of the blood or urine or abnormalities in imaging tests). Lab Interpretation Abnormal (test code = 54599-2) [facility] CenterHep[facility] Panel (ALB, T.PRO, BILI T, BU/BC, ALT, AST, ALK PHOS)2020-03-10 19:02:00 Test Item Value Reference Range Interpretation Comments TOTAL BILI (test code = 2914038046) 0.5 mg/dL 0.1-1.1 BILI UNCON (test code = 8947113863) 0.3 mg/dL 0.1-1.1 BILI CONJ (test code = 5395573509) 0.0 mg/dL 0-0.3 T PROTEIN (test code = 4698661542) 8.3 g/dL 6.3-8.2 H ALBUMIN (test code = 0342178684) 4.3 g/dL 3.5-5 ALK PHOS (test code = 4368994546) 85 U/L 34-122 ALTv (test code = 1742-6) 12 U/L 5-35 AST(SGOT) (test code = 8202747181) 16 U/L 13-40 Lab Interpretation (test code = Abnormal 53965-0) [facility] CenteraPTT2020-10-15 19:01:00 Test Item Value Reference Range Interpretation Comments APTT Patient (test See_Comment [Automat ed code = 3173-2) message] The system which generated this result transmitted reference range : 23 - 38 Seconds . The reference range was not used to interpr et this result as normal/abnormal . PAT (test code = PAT) The [facility] patient population mean normal value for aPTT is 30 seconds. Lab Interpretation Normal (test code = 00402-2) [facility] CenterProthrombin Time (PT) / [id number] 18:59:00 Test Item Value Reference Range Interpretation Comments PROTIME PATIENT (test See_Comment [Auto mated message] code = 5964-2) The system wh ich generated this result transmitted ref erence range: 12.0 - 1 4.7 Seconds. The re ference range was not u sed to interpret this result as normal/abnor mal. INR (test code = 6301-6) Nor mal INR <1.1; Warfarin Therap eutic range 2.0 to 3. 0 or 2.5 to 3.5, dep ending upon the indica tions. Lab Interpretation (test Normal code = 40670-1) [facility] CenterCBC with [id number] 18:50:00 Test Item Value Reference Range Interpretation Comments WBC (test code = See_Comment [Automated 2290-2) message] The sy stem which generated this result transmitted reference range : 4.30 - 11.10 10*3/?L. The reference range was not used to interpret this result as normal/abnormal . RBC (test code = See_Comment [Automated 789-8) message] The sy stem which generated this result transmitted reference range : 3.93 - 5.25 10*6/?L. The reference range was not used to interpret this result as normal/abnormal . HGB (test code = 10.8 g/dL 11.6-15 L 718-7) HCT (test code = 34.1 % 35.7-45.2 L 4544-3) MCV (test code = 71.0 fL 80.6-95.5 L 787-2) MCH (test code = 22.5 pg 25.9-32.8 L 785-6) MCHC (test code = 31.7 g/dL 31.6-35.1 786-4) RDW-SD (test code = 42.8 fL 39-49.9 17078-9) RDW-CV (test code = 16.8 % 12-15.5 H 788-0) PLT (test code = See_Comment [Automated 777-3) message] The sy stem which generated this result transmitted reference range : 166 - 358 10*3/ ?L. The reference r minerva was not used to interpret this result as normal/abnormal . MPV (test code = 10.9 fL 9.5-12.9 43159-7) NRBC/100 WBC (test See_Comment [Automat ed code = 7739100328) message] The system which generated this result transmitted reference range : 0.0 - 10.0 /100 WBCs. The refer ence range was not u sed to interpret th is result as normal/abnormal . NRBC x10^3 (test code <0.01 See_Comment [Auto mated = 7619059504) message] The s ystem which generated this result transmitted reference range : 10*3/?L. The reference range was not used to interpret this result as normal/abnormal . GRAN MAT (NEUT) % 69.1 % (test code = 770-8) IMM GRAN % (test code 1.00 % = 8234034696) LYMPH % (test code = 20.5 % 736-9) MONO % (test code = 5.3 % 5905-5) EOS % (test code = 3.5 % 713-8) BASO % (test code = 0.6 % 706-2) GRAN MAT x10^3(ANC) 5.61 10*3/uL 1.88-7.09 (test code = 8812076088) IMM GRAN x10^3 (test 0.08 10*3/uL 0-0.06 H code = 7502943647) LYMPH x10^3 (test code 1.66 10*3/uL 1.32-3.29 = 731-0) MONO x10^3 (test code 0.43 10*3/uL 0.33-0.92 = 742-7) EOS x10^3 (test code = 0.28 10*3/uL 0.03-0.39 711-2) BASO x10^3 (test code 0.05 10*3/uL 0.01-0.07 = 704-7) Lab Interpretation Abnormal (test code = 39566-4) [facility] [Presence] in Respiratory specimen by SUE with probe [id number] 23:44:11 Test Item Value Reference Range Interpretation Comments SARS-CoV-2 (COVID-19) RNA Not detected Not-Detected [Presence] in Respiratory specimen by SUE with probe detection (test code = 10494-7) nlipdxocem0503-01-04 18:51:00 Test Item Value Reference Range Interpretation Comments hematocrit (test code = hematocrit) 30.4 % 35.0-45.[address] [facility]/volume[facility] in [id number] 18:51:00 Test Item Value Reference Range Interpretation Comments hemoglobin (test code = hemoglobin) 9.4 g/dL 11.7-15.5 L [facility] GLUCOSE (AUTOMATED)2019-01-09 21:32:00 Test Item Value Reference Range Interpretation Comments POCT GLU (test code = 5027063797) 266 mg/dL 70-110 H Lab Interpretation (test code = Abnormal 46419-3) [facility] GLUCOSE (AUTOMATED)2019-01-09 18:56:00 Test Item Value Reference Range Interpretation Comments POCT GLU (test code = 6637171510) 168 mg/dL 70-110 H Lab Interpretation (test code = Abnormal 64902-7) [facility] GLUCOSE (AUTOMATED)2019-01-09 12:31:00 Test Item Value Reference Range Interpretation Comments POCT GLU (test code = 9941596180) 170 mg/dL 70-110 H Lab Interpretation (test code = Abnormal 85419-0) [facility] Metabolic Panel (NA, K, CL, CO2, GLUCOSE, BUN, CREATININE, CA)2019-01-09 10:55:00 Test Item Value Reference Range Interpretation Comments NA (test code = 142 mmol/L 135-145 7793538706) K (test code = 4.8 mmol/L 3.5-5 9670921736) CL (test code = 111 mmol/L 98-108 H 9310776374) CO2 TOTAL (test code = 25 mmol/L 23-31 7242571223) AGAP (test code = 2-16 9709957454) BUN (test code = 63 mg/dL 7-23 H 5114986480) GLUCOSE (test code = 147 mg/dL 70-110 H 8560255135) CREATININE (test code = 1.81 mg/dL 0.5-1.04 H 3021154367) CALCIUM (test code = 9.3 mg/dL 8.6-10.6 9773725886) eGFR Calculation mL/min/1.73m2 (Non-) (test code = 7576828820) eGFR Calculation mL/min/1.73m2 () (test code = 4396549732) PAT (test code = PAT) Association of Glomerular Filtration Rate (GFR) and Staging of Kidney Disease*+ + + +| GFR (mL/min/1.73 m2)?| With Kidney Damage?|?Without Kidney Damage+ --------+ --------+ +|?>90?|?S tage one?|? Normal?+ ---------+ ---------+ +|?60-89? |?Stage two?|? Decreased GFR? + --+ --+ ------+|?30-59?|?Stage three?|? Stage three? + --+ --+ ------+|?15-29?|?Stage four? |? Stage four?+ -------+ -------+ +|?<15 (or dialysis)?|?Stage five? |? Stage five?+ -------+ -------+ +*Each stage assumes the associated GFR level has been in effect for at least three months.?Stages 1 to 5, with or without kidney disease, indicate chronic kidney disease.Notes: Determination of stages one and two (with eGFR >59mL/min/1.73 m2) requires estimation of kidney damage for at least three months as defined by structural or functional abnormalities of the kidney, manifested by either:Pathological abnormalities or Markers of kidney damage (including abnormalities in the composition of the blood or urine or abnormalities in imaging tests). Lab Interpretation Abnormal (test code = 49579-3) [facility] [id number] 10:55:00 Test Item Value Reference Range Interpretation Comments MAGNESIUM (test code = 4675701329) 2.1 mg/dL 1.7-2.4 Lab Interpretation (test code = Normal 55058-1) [facility] WITH [id number] 10:44:00 Test Item Value Reference Range Interpretation Comments WBC (test code = See_Comment [Automated 8024-2) message] The sy stem which generated this result transmitted reference range : 4.30 - 11.10 10*3/?L. The reference range was not used to interpret this result as normal/abnormal . RBC (test code = See_Comment [Automated 380-4) message] The sy stem which generated this result transmitted reference range : 3.93 - 5.25 10*6/?L. The reference range was not used to interpret this result as normal/abnormal . HGB (test code = 9.0 g/dL 11.6-15 L 718-7) HCT (test code = 29.5 % 35.7-45.2 L 4544-3) MCV (test code = 63.2 fL 80.6-95.5 L 787-2) MCH (test code = 19.3 pg 25.9-32.8 L 785-6) MCHC (test code = 30.5 g/dL 31.6-35.1 L 786-4) RDW-SD (test code = 45.7 fL 39-49.9 23168-5) RDW-CV (test code = 20.5 % 12-15.5 H 788-0) PLT (test code = See_Comment [Automated 777-3) message] The sy stem which generated this result transmitted reference range : 166 - 358 10*3/ ?L. The reference r minerva was not used to interpret this result as normal/abnormal . MPV (test code = 10.5 fL 9.5-12.9 88363-1) IPF % (test code = 1.4 % 1.3-7.7 Platelet count 8238804857) measured by fluorescence method. NRBC/100 WBC (test See_Comment [Automat ed code = 4115276016) message] The system which generated this result transmitted reference range : 0.0 - 10.0 /100 WBCs. The refer ence range was not u sed to interpret th is result as normal/abnormal . NRBC x10^3 (test code <0.01 See_Comment [Auto mated = 8497476254) message] The s ystem which generated this result transmitted reference range : 10*3/?L. The reference range was not used to interpret this result as normal/abnormal . GRAN MAT (NEUT) % 63.0 % (test code = 770-8) IMM GRAN % (test code 0.30 % = 5930365066) LYMPH % (test code = 26.4 % 736-9) MONO % (test code = 7.1 % 5905-5) EOS % (test code = 2.7 % 713-8) BASO % (test code = 0.5 % 706-2) GRAN MAT x10^3(ANC) 5.42 10*3/uL 1.88-7.09 (test code = 9182468445) IMM GRAN x10^3 (test 0.03 10*3/uL 0-0.06 code = 4385535843) LYMPH x10^3 (test code 2.27 10*3/uL 1.32-3.29 = 731-0) MONO x10^3 (test code 0.61 10*3/uL 0.33-0.92 = 742-7) EOS x10^3 (test code = 0.23 10*3/uL 0.03-0.39 711-2) BASO x10^3 (test code 0.04 10*3/uL 0.01-0.07 = 704-7) Lab Interpretation Abnormal (test code = 64786-2) [facility] 10:18:00 Test Item Value Reference Range Interpretation Comments HGB (test code = 718-7) 9.1 g/dL 11.6-15 L Lab Interpretation (test code = Abnormal 74927-5) [facility] CenterGlycosylated Hemoglobin (A1C)2019-01-09 03:27:00 Test Item Value Reference Interpretation Comments Range HGB A1C (test code = See_Comment H [Autom ated 4548-4) message] The system which generated this result transmitted reference range : 4.0 - 6.0 % NGSP. The reference range was not used to interpret this result as normal/abnormal . PAT (test code = %A1C (NGSP) PAT) Interpretation (ADA)4.8-5.6? Normal or (Non-Diabetic Range)5.7-6.4? Increased Risk (Pre-Diabetic)>6.5?D iabetes Indicated Lab Interpretation Abnormal (test code = 09542-8) [facility]2019-01-09 00:56:00 Test Item Value Reference Range Interpretation Comments POCT GLU (test code = 7124259031) 182 mg/dL 70-110 H Lab Interpretation (test code = Abnormal 53514-3) [facility] CenterType [facility] Screen - ONCE [id number] 23:08:55 Test Item Value Reference Range Interpretation Comments ABO & RH (test code B Positive Performe d at [facility] = 20) Laboratory Serv [facility] [address] [place] [address] Free: [phone] A No. [id number] IAT (test code = Negative Performed a t [facility] 1185) Laboratory Serv [facility] [address] [place], [place] [id number] Free: [phone] A No. [id number] [facility] CenterTroponin [id number] 21:02:00 Test Item Value Reference Range Interpretation Comments TROPONIN I (test <0.012 See_Comment [Automated code = 7786399462) message] The system which generated this result transmitted reference range : <=0.034 ng/mL. The reference range was not used to interpr et this result as normal/abnormal . PAT (test code = Equal or Less than PAT) 0.034 ng/ml---Normal?Not e: Cardiac troponin begins to rise 3-4 hours after the onset of ischemia. Repeat in 4-6 hours if the sample was drawn within 3-4 hours of the onset of the symptom and found normal. Between 0.035 and 0.120 ng/mL--- Borderline. Questionable myocardial injury or necrosis?Note: Serial measurement may be necessary to confirm or exclude the diagnosis of myocardial injury or necrosis; Clinical correlation (symptoms, EKGs, imaging studies, and others) required; Repeat in 4-6 hours if clinically indicated.? Equal or Higher than 0.121 ng/mL---Abnormal. Myocardial Injury or Necrosis Likely? Biotin has been reported to cause a negative bias, interpret results relative to patient's use of biotin.? ? Lab Interpretation Normal (test code = 68801-1) [facility] CenterN-TERMINAL [id number] 20:09:00 Test Item Value Reference Range Interpretation Comments NT-proBNP (test code 143 pg/mL See_Comment H [Autom ated = 8893846977) message] The system which generated this result transmitted reference range : <=125. The reference range was not used to interpret this result as normal/abnormal . PAT (test code = PAT) Biotin has been reported to cause a negative bias, interpret results relative to patient's use of biotin. Lab Interpretation Abnormal (test code = 98089-7) [facility]eraPTT2019-08-15 20:03:00 Test Item Value Reference Range Interpretation Comments APTT Patient (test See_Comment [Automat ed code = 3173-2) message] The system which generated this result transmitted reference range : 23 - 38 Seconds . The reference range was not used to interpr et this result as normal/abnormal . PAT (test code = PAT) The [facility] patient population mean normal value for aPTT is 30 seconds. Lab Interpretation Normal (test code = 19471-1) [facility] CenterProthrombin Time (PT) / [id number] 20:01:00 Test Item Value Reference Range Interpretation Comments PROTIME PATIENT (test See_Comment [Auto mated message] code = 5964-2) The system wh ich generated this result transmitted ref erence range: 12.0 - 1 4.7 Seconds. The re ference range was not u sed to interpret this result as normal/abnor mal. INR (test code = 6301-6) Nor mal INR <1.1; Warfarin Therap eutic range 2.0 to 3. 0 or 2.5 to 3.5, dep ending upon the indica tions. Lab Interpretation (test Normal code = 86715-1) [facility] Center[facility] Metabolic Panel (NA, K, CL, CO2, GLUCOSE, BUN, CREATININE, CA)2019-01-08 19:59:00 Test Item Value Reference Range Interpretation Comments NA (test code = 141 mmol/L 135-145 0197520124) K (test code = 5.1 mmol/L 3.5-5 H 6605999856) CL (test code = 108 mmol/L 98-108 5635612988) CO2 TOTAL (test code = 22 mmol/L 23-31 L 4817592200) AGAP (test code = 2-16 6342492468) BUN (test code = 71 mg/dL 7-23 H 8232608024) GLUCOSE (test code = 199 mg/dL 70-110 H 2223704700) CREATININE (test code = 1.96 mg/dL 0.5-1.04 H 7652242115) CALCIUM (test code = 9.6 mg/dL 8.6-10.6 8281955242) eGFR Calculation mL/min/1.73m2 (Non-) (test code = 5033870860) eGFR Calculation mL/min/1.73m2 () (test code = 3024123378) PAT (test code = PAT) Association of Glomerular Filtration Rate (GFR) and Staging of Kidney Disease*+ + + +| GFR (mL/min/1.73 m2)?| With Kidney Damage?|?Without Kidney Damage+ --------+ --------+ +|?>90?|?S tage one?|? Normal?+ ---------+ ---------+ +|?60-89? |?Stage two?|? Decreased GFR? + --+ --+ ------+|?30-59?|?Stage three?|? Stage three? + --+ --+ ------+|?15-29?|?Stage four? |? Stage four?+ -------+ -------+ +|?<15 (or dialysis)?|?Stage five? |? Stage five?+ -------+ -------+ +*Each stage assumes the associated GFR level has been in effect for at least three months.?Stages 1 to 5, with or without kidney disease, indicate chronic kidney disease.Notes: Determination of stages one and two (with eGFR >59mL/min/1.73 m2) requires estimation of kidney damage for at least three months as defined by structural or functional abnormalities of the kidney, manifested by either:Pathological abnormalities or Markers of kidney damage (including abnormalities in the composition of the blood or urine or abnormalities in imaging tests). Lab Interpretation Abnormal (test code = 83533-1) [facility] (ALB, T.PRO, BILI T, BU/BC, ALT, AST, ALK PHOS)2019-01-08 19:59:00 Test Item Value Reference Range Interpretation Comments TOTAL BILI (test code = 3938993313) 0.4 mg/dL 0.1-1.1 BILI UNCON (test code = 8262229892) 0.2 mg/dL 0.1-1.1 BILI CONJ (test code = 7513156259) 0.0 mg/dL 0-0.3 T PROTEIN (test code = 6685330611) 8.0 g/dL 6.3-8.2 ALBUMIN (test code = 5001743876) 4.1 g/dL 3.5-5 ALK PHOS (test code = 5665096651) 108 U/L 34-122 ALT(SGPT) (test code = 8351056464) 13 U/L 9-51 AST(SGOT) (test code = 3040514816) 17 U/L 13-40 Lab Interpretation (test code = Normal 66996-9) [facility] WITH [id number] 19:58:00 Test Item Value Reference Range Interpretation Comments WBC (test code = See_Comment [Automated 6690-2) message] The sy stem which generated this result transmitted reference range : 4.30 - 11.10 10*3/?L. The reference range was not used to interpret this result as normal/abnormal . RBC (test code = See_Comment [Automated 789-8) message] The sy stem which generated this result transmitted reference range : 3.93 - 5.25 10*6/?L. The reference range was not used to interpret this result as normal/abnormal . HGB (test code = 9.9 g/dL 11.6-15 L 718-7) HCT (test code = 31.9 % 35.7-45.2 L 4544-3) MCV (test code = 63.0 fL 80.6-95.5 L 787-2) MCH (test code = 19.6 pg 25.9-32.8 L 785-6) MCHC (test code = 31.0 g/dL 31.6-35.1 L 786-4) RDW-SD (test code = 45.0 fL 39-49.9 68089-3) RDW-CV (test code = 21.0 % 12-15.5 H 788-0) PLT (test code = See_Comment [Automated 777-3) message] The sy stem which generated this result transmitted reference range : 166 - 358 10*3/ ?L. The reference r minerva was not used to interpret this result as normal/abnormal . MPV (test code = 9.5-12.9 Not Measure d 25606-9) IPF % (test code = 1.4 % 1.3-7.7 Platelet count 8923268207) measured by fluorescence method. NRBC/100 WBC (test See_Comment [Automat ed code = 7930951881) message] The system which generated this result transmitted reference range : 0.0 - 10.0 /100 WBCs. The refer ence range was not u sed to interpret th is result as normal/abnormal . NRBC x10^3 (test code <0.01 See_Comment [Auto mated = 7030382562) message] The s ystem which generated this result transmitted reference range : 10*3/?L. The reference range was not used to interpret this result as normal/abnormal . GRAN MAT (NEUT) % 72.5 % (test code = 770-8) IMM GRAN % (test code 0.60 % = 1957772757) LYMPH % (test code = 17.0 % 736-9) MONO % (test code = 6.9 % 5905-5) EOS % (test code = 2.4 % 713-8) BASO % (test code = 0.6 % 706-2) GRAN MAT x10^3(ANC) 7.36 10*3/uL 1.88-7.09 H (test code = 3103527940) IMM GRAN x10^3 (test 0.06 10*3/uL 0-0.06 code = 4839293979) LYMPH x10^3 (test code 1.73 10*3/uL 1.32-3.29 = 731-0) MONO x10^3 (test code 0.70 10*3/uL 0.33-0.92 = 742-7) EOS x10^3 (test code = 0.24 10*3/uL 0.03-0.39 711-2) BASO x10^3 (test code 0.06 10*3/uL 0.01-0.07 = 704-7) Lab Interpretation Abnormal (test code = 51933-5) [facility] CenterXR CHEST 1 [id number] 19:52:04HISTORY: Cough. TECHNIQUE: Portable AP erect view of the chest is obtained. Comparison ismade with 09/30/2017 study. FINDINGS: Mild congestion suspected in the left lower lung and minimally inthe right lower lung. No acute pneumonia. No pneumothorax or pleuraleffusion detected. Cardiac size is within normal limits. CONCLUSIONS: Bibasilar pulmonary congestion, more in the retrocardiac leftlower lung. Etiology could be viral infection.[facility], Radiant Results Inft User - 01/08/2019 2:54 PM CDTHISTORY: Cough.TECHNIQUE: Portable AP erect view of the chest is obtained. Comparison ismade with 09/30/2017 study.FINDINGS: Mild congestion suspected in the left lower lung and minimally inthe right lower lung. No acute pneumonia. No pneumothorax or pleuraleffusion detected. Cardiac size is within normal limits. CONCLUSIONS: Bibasilar pulmonary congestion, more in the retrocardiac leftlower lung. Etiology could be viral infection.[facility] CenterUrinalysis macro (dipstick) panel - [id number] 13:48:00 Test Item Value Reference Range Interpretation Comments Color Color (test code = Color yellow Color) Color Appearance (test code = Color clear Appearance) Color Glucose (test code = Color negative Glucose) Color Bilirubin (test code = Color negative Bilirubin) Color Ketones (test code = Color negative Ketones) Color Specific Drummond (test code = 1.020 Color Specific Drummond) Color Blood (test code = Color negative Blood) Color PH (test code = Color PH) 5.5 Color Protein (test code = Color negative Protein) Color Urobilinogen (test code = 0.2 Color Urobilinogen) Color Nitrites (test code = Color negative Nitrites) Color Leukocytes (test code = Color negative Leukocytes) [facility] - [id number] 13:48:00 Test Item Value Reference Range Interpretation Comments Color Color (test code = Color yellow Color) Color Appearance (test code = Color clear Appearance) Color Glucose (test code = Color negative Glucose) Color Bilirubin (test code = Color negative Bilirubin) Color Ketones (test code = Color negative Ketones) Color Specific Drummond (test code = 1.020 Color Specific Drummond) Color Blood (test code = Color negative Blood) Color PH (test code = Color PH) 5.5 Color Protein (test code = Color negative Protein) Color Urobilinogen (test code = 0.2 Color Urobilinogen) Color Nitrites (test code = Color negative Nitrites) Color Leukocytes (test code = Color negative Leukocytes) [facility]
[2021-04-14 13:50] LABS: Protime INR 1.05; RBC Red Blood Cell Count 4.98 M/uL (3.86-4.86)
[2021-04-14 13:51] LABS: Absolute Lymphocytes (CBC) 1.7 K/uL (0.7-4.9); Basophils % 1.5 % (0-1.3); Lymphocytes % 16.7 % (15.3-44.8); MPV 8.6 fL (7.6-11.3)
[2021-04-14 14:07] LABS: ALT/SGPT 19 U/L (12-78); AST/SGOT 7 U/L (15-37); Alkaline Phosphatase 122 U/L (45-117); BUN Blood Urea Nitrogen 28 mg/dL (7-18); Bicarbonate 28 mmol/L (21-32); Bilirubin Direct < 0.1 mg/dL (0-0.2); Bilirubin Total 0.3 mg/dL (0.2-1.0); Glucose Level 152 mg/dL (74-106); Magnesium 2.1 mg/dL (1.8-2.4); NT PRO-BNP 659 pg/mL (<125); Potassium 4.5 mmol/L (3.5-5.1); Protein, Total 7.6 g/dL (6.4-8.2); Sodium Level 144 mmol/L (136-145); Troponin (Emerg Dept Use Only) 0.02 ng/mL (0.0-0.045)
--- NOTE | 2021-04-14 14:17 | RAD REPORT ---
EXAM DESCRIPTION: CT - Head Brain Wo Cont - 04/14/2021 1:34 pm CLINICAL HISTORY: Weakness and numbness COMPARISON: None TECHNIQUE: Computed axial tomography of the head was obtained. IV contrast was not requested. All CT scans are performed using dose optimization technique as appropriate and may include automated exposure control or mA/KV adjustment according to patient size. FINDINGS: An intracranial bleed is not seen . The ventricles are normal in caliber. No extra-axial fluid collection is noted. Mild low-density areas within periventricular, deep and subcortical white matter likely represent isc hemic changes secondary to small vessel disease. Prominent fluid collection present within the sella turcica Fluid within the sinuses/ mastoids is not seen. IMPRESSION: Prominent fluid collection within the sella turcica probably an empty sella turcica. A c yst is another consideration. A nonemergent MRI pituitary gland with contrast is recommended.
--- NOTE | 2021-04-14 15:07 | ER ---
Nurse's Notes [facility] Name: Campos Odonnell Age: 65 yrs Sex: Female : 1955 Arrival Date: 04/14/2021 Time: 12:44 Bed 9 Private MD: Diagnosis: Tremor, unspecified Presentation: 04/14 12:44 Chief complaint: Patient states: She started feeling weak and shaky yesterday, it got aj1 worse today when she was cooking Tacos in her kitchen, and she started to feel so weak and shaky that she felt like she could not walk so she called EMS. BGL 190 by EMS. Coronavirus screen: Vaccine status: Patient reports receiving the 2nd dose of the covid vaccine. Ebola Screen: Patient denies travel to an Ebola-affected area in the 21 days before illness onset. No acute neurological deficit is noted. Initial Sepsis Screen: Does the patient meet any 2 criteria? No. Patient's initial sepsis screen is negative. Does the patient have a suspected source of infection? No. Patient's initial sepsis screen is negative. Risk Assessment: Do you want to hurt yourself or someone else? Patient reports no desire to harm self or others. Onset of symptoms was April 13, 2021. 12:44 Method Of Arrival: EMS: [place] [id number] 12:44 Acuity: [place] 3 aj1 Triage Assessment: 12:46 The onset of the patients symptoms was April 13, 2021 at 20:21. General: Appears in aj1 no apparent distress. comfortable, Behavior is calm, cooperative, appropriate for age. Pain: Denies pain. Neuro: Level of Consciousness is awake, alert, obeys commands, Oriented to person, place, time, situation, Speech is normal. Stroke Activation: Symptom onset > 6 hours Physician: Stroke Attending; Name: ; Notified At: ; Arrived At: Physician: Chief Stroke Resident; Name: ; Notified At: ; Arrived At: Physician: Stroke Resident; Name: ; Notified At: ; Arrived At: Physician: ED Attending; Name: ; Notified At: ; Arrived At: Physician: ED Resident; Name: ; Notified At: ; Arrived At: Historical: - Allergies: 12:46 Lyrica; aj1 - PMHx: 12:46 Diabetes - IDDM; Hypertension; Renal disease; COPD; CHF; chronic back pain; aj1 - PSHx: 12:46 back surgery x3; aj1 - Immunization history:: Adult Immunizations up to date, Flu vaccine is up to date. - Social history:: Smoking status: Patient/guardian denies using tobacco. Screenin:36 Abuse screen: Denies threats or abuse. Denies injuries from another. Nutritional aj1 screening: No deficits noted. Tuberculosis screening: No symptoms or risk factors identified. Fall Risk No fall in past 12 months (0 pts). No secondary diagnosis (0 pts). No IV (0 pts). Ambulatory Aid- Crutches/Cane/Walker (15 pts). Gait- Normal/Bed Rest/Wheelchair (0 pts) Mental Status- Oriented to own ability (0 pts). Total Sun Fall Scale indicates No Risk (0-24 pts). Assessment: 12:45 General: Appears in no apparent distress. comfortable, Behavior is. Pain: Denies pain. aj1 Neuro: Level of Consciousness is awake, alert, obeys commands, Oriented to person, place, time, situation, Call Center Professional are equal bilaterally Moves all extremities. Speech is normal, Facial symmetry appears normal. Cardiovascular: Patient's skin is warm and dry. Respiratory: Airway is patent Respiratory effort is even, unlabored, Respiratory pattern is regular, symmetrical. GI: No signs and/or symptoms were reported involving the gastrointestinal system. : No signs and/or symptoms were reported regarding the genitourinary system. EENT: No signs and/or symptoms were reported regarding the EENT system. Derm: No signs and/or symptoms reported regarding the dermatologic system. Skin is pink, warm \T\ dry. normal. Musculoskeletal: No signs and/or symptoms reported regarding the musculoskeletal system. Circulation, motion, and sensation intact. 13:19 Reassessment: Patient appears in no apparent distress at this time. Patient and/or aj1 family updated on plan of care and expected duration. Pain level reassessed. Patient is alert, oriented x 3, equal unlabored respirations, skin warm/dry/pink. Patient transported to CT via wheelchair. 14:07 Reassessment: Patient and/or family updated on plan of care and expected duration. Pain aj1 level reassessed. General: Appears in no apparent distress. comfortable, Behavior is calm, cooperative, appropriate for age. Pain: Denies pain. Neuro: Level of Consciousness is awake, alert, obeys commands, Oriented to person, place, time, situation. Cardiovascular: Patient's skin is warm and dry. Respiratory: Airway is patent Respiratory effort is even, unlabored, Respiratory pattern is regular, symmetrical. Derm: Skin is pink, warm \T\ dry. normal. 15:35 Reassessment: Patient appears in no apparent distress at this time. No changes from aj1 previously documented assessment. Patient and/or family updated on plan of care and expected duration. Pain level reassessed. Patient is alert, oriented x 3, equal unlabored respirations, skin warm/dry/pink. Vital Signs: 12:44 BP 160 / 84; Pulse 83; Resp 18; Temp 98.3; Pulse Ox 100% on R/A; Weight 92.53 kg (R); aj1 Height 5 ft. 6 in. (167.64 cm) (R); Pain 0/10; 13:45 BP 134 / 79; Pulse 75; Resp 18; Pulse Ox 97% ; aj1 14:45 BP 138 / 84; Pulse 82; Resp 18; Pulse Ox 99% on R/A; aj1 15:35 BP 130 / 83; Pulse 79; Resp 18; Pulse Ox 97% on R/A; aj1 12:44 Body Mass Index 32.93 (92.53 kg, 167.64 cm) aj1 ED Course: 12:44 Patient arrived in ED. aj1 12:46 Triage completed. aj1 12:46 Arm band placed on Patient placed in an exam room. aj1 12:50 Monie Carlson, RN is Primary Nurse. aj1 12:53 [facility]C [facility] kb 12:53 Abel Johnson MD is Attending Physician. kb 13:34 CT Head Brain wo Cont In Process Unspecified. EDMS 13:41 Initial lab(s) drawn, by me, sent to lab. Inserted. aj1 15:37 No provider procedures requiring assistance completed. IV discontinued, intact, aj1 bleeding controlled, No redness/swelling at site. Pressure dressing applied. Administered Medications: No medications were administered Outcome: 15:07 Discharge ordered by . kb 15:37 Discharged to home via wheelchair, with friend. aj1 15:37 Condition: good 15:37 Discharge instructions given to patient, Instructed on discharge instructions, follow up and referral plans. Demonstrated understanding of instructions, follow-up care. 15:38 Patient left the ED. aj1 Signatures: Dispatcher [employer] Janice Chavarria, GREYSON-Lexie RUBI-Monie Goodson, RN RN aj1 Corrections: (The following items were deleted from the chart) 12:47 12:46 PMHx: ESRD; aj1 aj1 15:35 15:33 BP 145 / 79; Pulse 75bpm; Resp 18bpm; Pulse Ox 97%; aj1 aj1
--- NOTE | 2021-04-14 15:07 | EDPHYS ---
Physician Documentation [facility] Name: Campos Odonnell Age: 65 yrs Sex: Female : 1955 Arrival Date: 04/14/2021 Time: 12:44 Bed 9 Private MD: ED Physician Abel Johnson HPI: 04/14 15:30 This 65 yrs old Black Female presents to ER via EMS with complaints of Weakness, Tremor.kb 15:30 The patient presents to the emergency department with tremor on left side. Onset: The kb symptoms/episode began/occurred yesterday. Context: occurred at home, occurred while the patient was standing. Associated signs and symptoms: Pertinent positives: tremor. Severity of symptoms: At their worst the symptoms were mild moderate in the emergency department the symptoms have resolved. Patient's baseline: Neuro: alert and fully oriented, Motor: no deficits, Ambulation: walks without assistance, Speech: normal. Current symptoms: Currently, the patient is not experiencing any symptoms. The patient has not experienced similar symptoms in the past. The patient has not recently seen a physician. Pt reports tremor on left side of body that started yesterday. States tremor goes away when she is at rest, but returns when she tries to do anything. . Historical: - Allergies: 12:46 Lyrica; aj1 - PMHx: 12:46 Diabetes - IDDM; Hypertension; Renal disease; COPD; CHF; chronic back pain; aj1 - PSHx: 12:46 back surgery x3; aj1 - Immunization history:: Adult Immunizations up to date, Flu vaccine is up to date. - Social history:: Smoking status: Patient/guardian denies using tobacco. ROS: 15:30 Constitutional: Negative for fever, chills, and weight loss. kb 15:30 Neuro: Positive for tremor, Negative for altered mental status, dizziness, gait disturbance, headache, hearing loss, loss of consciousness, numbness, seizure activity, speech changes, syncope, near syncope, tingling, visual changes. 15:30 All other systems are negative. Exam: 15:30 Constitutional: This is a well developed, well nourished patient who is awake, alert, kb and in no acute distress. Head/Face: Normocephalic, atraumatic. Eyes: Pupils equal round and reactive to light, extra-ocular motions intact. Lids and lashes normal. Conjunctiva and sclera are non-icteric and not injected. Cornea within normal limits. Periorbital areas with no swelling, redness, or edema. ENT: Moist Mucous membranes Cardiovascular: Regular rate and rhythm with a normal S1 and S2. No gallops, murmurs, or rubs. No pulse deficits. Respiratory: Respirations even and unlabored. No increased work of breathing, no retractions or nasal flaring. Skin: Warm, dry with normal turgor. Normal color. MS/ Extremity: Pulses equal, no cyanosis. Neurovascular intact. Full, normal range of motion. Neuro: Awake and alert, GCS 15, oriented to person, place, time, and situation. Moves all extremities. Normal gait. Psych: Awake, alert, with orientation to person, place and time. Behavior, mood, and affect are within normal limits. Vital Signs: 12:44 BP 160 / 84; Pulse 83; Resp 18; Temp 98.3; Pulse Ox 100% on R/A; Weight 92.53 kg (R); aj1 Height 5 ft. 6 in. (167.64 cm) (R); Pain 0/10; 13:45 BP 134 / 79; Pulse 75; Resp 18; Pulse Ox 97% ; aj1 14:45 BP 138 / 84; Pulse 82; Resp 18; Pulse Ox 99% on R/A; aj1 15:35 BP 130 / 83; Pulse 79; Resp 18; Pulse Ox 97% on R/A; aj1 12:44 Body Mass Index 32.93 (92.53 kg, 167.64 cm) [facility][1] MDM: 12:53 Patient medically screened. kb 15:03 Data reviewed: vital signs, nurses notes. Data interpreted: Pulse oximetry: on room air kb is 100 %. Interpretation: normal. Counseling: I had a detailed discussion with the patient and/or guardian regarding: the historical points, exam findings, and any diagnostic results supporting the discharge/admit diagnosis, lab results, radiology results, the need for outpatient follow up, a family practitioner, a neurologist, to return to the emergency department if symptoms worsen or persist or if there are any questions or concerns that arise at home. 04/14 13:02 Order name: Basic Metabolic Panel; Complete Time: 14:12 kb 04/14 13:02 Order name: CBC with Diff; Complete Time: 13:55 kb 04/14 13:02 Order name: LFT's; Complete Time: 14:12 kb 04/14 13:02 Order name: Magnesium; Complete Time: 14:12 kb 04/14 13:02 Order name: NT PRO-BNP; Complete Time: 14:12 kb 04/14 13:02 Order name: PT-INR; Complete Time: 13:55 kb 04/14 13:02 Order name: Troponin (emerg Dept Use Only); Complete Time: 14:12 kb 04/14 13:02 Order name: EKG; Complete Time: 13:03 kb 04/14 13:02 Order name: Cardiac monitoring; Complete Time: 13:41 kb 04/14 13:02 Order name: EKG - Nurse/Tech; Complete Time: 14:06 kb 04/14 13:02 Order name: IV Saline Lock; Complete Time: 13:41 kb 04/14 13:02 Order name: Labs collected and sent; Complete Time: 13:41 kb 04/14 13:02 Order name: O2 Per Protocol; Complete Time: 13:41 kb 04/14 13:02 Order name: CT Head Brain wo Cont; Complete Time: 14:18 kb 04/14 13:02 Order name: O2 Sat Monitoring; Complete Time: 13:41 kb Administered Medications: No medications were administered Disposition: 17:58 Co-signature as Attending Physician, Abel Johnson MD I agree with the assessment and kdr plan of care. Disposition Summary: 04/14/21 15:07 Discharge Ordered Location: Home kb Condition: Stable kb Diagnosis - Tremor, unspecified kb Followup: kb - With: Emergency Department - When: As needed - Reason: Worsening of condition Followup: kb - With: Private Physician - When: 2 - 3 days - Reason: Recheck today's complaints, Continuance of care, Re-evaluation by your physician Discharge Instructions: - Discharge Summary Sheet kb - Tremor kb Forms: - Medication Reconciliation Form kb - Thank You Letter kb - Antibiotic Education kb - Prescription Opioid Use kb Signatures: Dispatcher [employer] EDMS Janice Leon, KATARINAC GREYSON-Monie Goodson RN RN Abel Su MD MD kdr Corrections: (The following items were deleted from the chart) 12:47 12:46 PMHx: ESRD; aj1 aj1
[2021-04-14 16:02] VITALS: TEMP 98.3
[2021-04-14 16:06] VITALS: BP 130/83; O2SAT 97
--- NOTE | 2021-04-19 08:19 | EKG ---
Test Date: 2021-04-14 Test Time: 14:01:06 Manager Metrology: LETY MEASUREMENT RESULTS: Intervals: Rate: 82 LA: 168 QRSD: 88 QT: 420 QTc: 490 [place]: P: 56 LA: 168 QRS: 29 T: 86 INTERPRETIVE STATEMENTS: Normal sinus rhythm Prolonged QT Abnormal ECG Compared to ECG 07/28/2020 21:10:00 No significant changes Electronically Signed On 04-19-21 08:05:06 DATABASE SECURITY ADMINISTRATOR by Gene Shankar
== END 2021-04-14 15:38 | disposition home or self-care (01) ==
LOC: ER 12:35
DX: R25.1 Tremor, unspecified (principal); I10 Essential (primary) hypertension; E11.9 Type 2 diabetes mellitus without complications; Z88.8 Allergy status to other drugs, medicaments and biological substances
CPT/HCPCS: 36415; 70450; 80048; 80076; 83735; 83880; 84484; 85025; 85610; 93005; 99284

== ENCOUNTER 2024-05-30 11:41 | Emergency (ER) | payer OTHER ==
[2024-05-30 12:08] LABS: Absolute Basophils 0.1 K/uL (0-0.5); Absolute Eosinophils 0.3 K/uL (0-0.5); Absolute Monocytes 0.5 K/uL (0.1-1.3); Absolute Neutrophil 4.9 K/uL (1.8-8.0); Basophils % 0.9 % (0-1.3); Eosinophils % 3.9 % (0-4.4); Hematocrit 33.9 % (36.0-45.0); Hemoglobin 10.7 g/dL (12.0-15.0); Lymphocytes % 14.6 % (15.3-44.8); MCH 21.1 pg (27.0-35.0); MCHC 31.4 g/dL (32.0-36.0); MCV 67.3 fL (80-100); MPV 9.2 fL (7.6-11.3); Neutrophils % 72.6 % (41.7-73.7); Nucleated Red Blood Cells % 0.1 % (0-0); Platelets 234 thou/uL (152-406); RBC Red Blood Cell Count 5.04 M/uL (3.86-4.86); Red Cell Distribution Width 18.6 % (12.1-15.2)
[2024-05-30 12:25] LABS: Albumin 2.7 g/dL (3.4-5.0); Albumin/Globulin Ratio 0.6 (1.1-1.8); Alkaline Phosphatase 132 U/L (45-117); Anion Gap 6.7 mEq/L (5.0-15.0); BUN Blood Urea Nitrogen 49 mg/dL (7-18); Bicarbonate 24 mEq/L (21-32); Bilirubin Total 0.3 mg/dL (0.2-1.0); Globulin 4.3 g/dL (2.3-3.5); Glomerular Filtration Rate 22 ml/min (=/>90); Glucose Level 96 mg/dL (74-106); Lipase 39 U/L (13-75); Potassium 4.7 mEq/L (3.5-5.1); Sodium Level 144 mEq/L (136-145)
[2024-05-30 12:26] LABS: ALT/SGPT < 14 U/L (13-56); AST/SGOT < 10 U/L (15-37)
[2024-05-30 12:27] LABS: Troponin High Sensitivity 59.4 pg/mL (<58.9)
[2024-05-30] MEDS ORDERED: ASPIRIN 81 MG CHEWABLE TABLET ONE (13:00)
--- NOTE | 2024-05-30 13:03 | RAD REPORT ---
EXAMINATION: ONE VIEW CHEST XR CLINICAL INDICATION: Congestion;Cough TECHNIQUE: Frontal chest projection is submitted. Examination is limited by patient positioning and t echnique. COMPARISON: 07/28/2020 FINDINGS: Mild interstitial edema suspected. The heart is moderately enlarged. No displaced fractures identifie d. IMPRESSION: Mild CHF is possible.
[2024-05-30 13:19] LABS: Anisocytosis 1+; Blood Morphology Comment NOTED (NOT SEEN); Hypochromasia 1+; Microcytosis 1+; Platelet Estimate ADEQ; White Blood Cell Scan OK (OK)
[2024-05-30] MEDS ORDERED: FUROSEMIDE 40 MG/4 ML VIAL ONE (13:24)
--- NOTE | 2024-05-30 13:28 | EDPHYS ---
Physician Documentation [facility] Name: Campos Odonnell Age: 68 yrs Sex: Female : 1955 Arrival Date: 05/30/2024 Time: 11:41 Bed 7 Private MD: ED Physician Greg Doe HPI: 05/30 12:51 This 68 yrs old Black Female presents to ER via EMS with complaints of Back Pain, dr5 Vomiting. 12:51 The patient presents with pain that is chronic. The symptoms are located in the right dr5 scapular area. Onset: The symptoms/episode began/occurred acutely. The problem was sustained from a chronic condition, without known cause. Patient is a 68-year-old female with chronic back pain, congestive heart failure, COPD, diabetes, hypertension, renal disease coming in with right upper back pain and episode of vomiting prior to arrival. Patient reports that her pain has resolved and is feeling much better. Patient denies any trauma or falls.. Historical: - Allergies: 11:45 Lyrica; iw - Home Meds: 14:00 tramadol 100 mg Oral tablet 1 tab as needed [Active]; gabapentin 600 mg oral tablet 2 cm10 tabs every day at bedtime [Active]; carvedilol 25 mg oral tablet 1 tab 2 times per day [Active]; Jardiance 10 mg oral tablet 1 tab daily [Active]; montelukast 10 mg oral tablet 1 tab as needed [Active]; simvastatin 20 mg Oral tablet 1 tab 3 times per week [Active]; spironolactone 25 mg Oral tablet 3 times per week [Active]; Tresiba U-100 Insulin 100 unit/mL subcutaneous solution [Active]; - PMHx: 11:45 chronic back pain; CHF; COPD; Diabetes - IDDM; Hypertension; Renal Disease; iw - PSHx: 11:45 back surgery x3; iw - Immunization history:: Adult Immunizations up to date. - Infectious Disease History:: Denies. - Social history:: Smoking status: Patient denies any tobacco usage or history of. ROS: 12:52 Constitutional: as per hpi dr5 Exam: 16:37 Constitutional: This is a well developed, well nourished patient who is awake, alert, dr5 and in no acute distress. 16:37 Neuro: Exam negative for dr5 Vital Signs: 11:44 BP 157 / 105; Pulse 69; Resp 19; Pulse Ox 100% on R/A; iw 13:04 BP 164 / 80; Pulse 71; Resp 18; Temp 98.4; Pulse Ox 98% on R/A; cm10 16:23 BP 182 / 76; Pulse 69; Resp 15; Pulse Ox 97% on R/A; cm10 MDM: 11:45 Medical Screening Exam initiated dr5 16:37 Differential diagnosis: CHF Exacerbation, PNA, UTI. Data reviewed: vital signs, nurses dr5 notes. ED course: Admitted patient. Admitting team came down and saw patient and consulted and recommended discharge with Tylenol with codeine. Note placed in chart. Will discharge patient per the recommendations.. 05/30 11:46 Order name: CBC with Diff; Complete Time: 13:26 dr5 05/30 11:46 Order name: Troponin HS; Complete Time: 12:28 dr5 05/30 11:46 Order name: Lipase; Complete Time: 12:28 dr5 05/30 11:46 Order name: CMP; Complete Time: 12:28 dr5 05/30 12:12 Order name: CBC Smear Scan; Complete Time: 13:26 EDMS 05/30 12:31 Order name: NT PRO-BNP; Complete Time: 13:13 dr5 05/30 14:03 Order name: Urinalysis w/ reflexes; Complete Time: 15:29 snw 05/30 11:46 Order name: XRAY Chest (1 view); Complete Time: 13:08 dr5 05/30 14:00 Order name: US Abdomen Limited; Complete Time: 15:29 eb 05/30 11:46 Order name: Cardiac monitoring; Complete Time: 13:04 dr5 05/30 11:46 Order name: EKG - Nurse/Tech; Complete Time: 12:51 dr5 05/30 11:46 Order name: IV Saline Lock; Complete Time: 11:59 dr5 05/30 11:46 Order name: Labs collected and sent; Complete Time: 11:59 dr5 05/30 11:46 Order name: O2 Per Protocol; Complete Time: 11:59 dr5 05/30 11:46 Order name: O2 Sat Monitoring; Complete Time: 12:00 dr5 EC:07 Rate is 66 beats/min. Rhythm is regular. QRS [place] is Normal. SC interval is normal at dr5 176 msec. QRS interval is normal at 96 msec. QT interval is normal at 448 msec. Administered Medications: 13:04 Drug: Aspirin PO Chewable Tablet 324 mg PO once; 81 mg tablets x 4 Route: PO; cm10 13:54 Follow up: Response: No adverse reaction cm10 13:53 Drug: Furosemide IVP 40 mg IVP once; give over 2 minutes Route: IVP; Site: left forearm;cm10 14:23 Follow up: Response: No adverse reaction cm10 Disposition Summary: 05/30/24 16:00 Discharge Ordered Notes: Location: Home(05/30/24 16:00) dr5 Condition: Stable(05/30/24 16:00) dr5 Diagnosis - Pain in right shoulder dr5 - Unspecified combined systolic (congestive) and diastolic (congestive) heart failure dr5 Followup: dr5 - With: Emergency Department - When: As needed - Reason: Worsening of condition Followup: dr5 - With: Private Physician - When: As needed - Reason: Worsening of condition Discharge Instructions: - Discharge Summary Sheet dr5 - Heart Failure, Diagnosis dr5 Forms: - Medication Reconciliation Form dr5 - Antibiotic Education dr5 - Prescription Opioid Use dr5 - Patient Portal Instructions dr5 - Leadership Thank You Letter dr5 Prescriptions: - acetaminophen-codeine 300-15 mg Oral tablet - take 1 tablet ORAL route every 8 hours As needed as needed for pain; 20 tablet; dr5 Refills: 0, Product Selection Permitted Addendum: 06/01/2024 07:40 I was immediately available for consultation during this patient's visit. I did not e c2 personally see the patient or discuss the patient with the PETER. . Signatures: Dispatcher [employer] [facility] Maisha Zuleta RN RN iw Laine Mar RN RN cm10 Greg Doe MD MD ec2 Brown Chapman, HISTOLOGY SUPERVISOR-C HISTOLOGY SUPERVISOR-Cdr5 Corrections: (The following items were deleted from the chart) 05/30 14:04 14:04 Urinalysis+U.LAB.BRZ ordered. [facility] 16:00 13:28 Inpatient Admission dr5 dr5 16:00 13:28 Siva Young-Ran dr5 dr5 16:00 13:28 Telemetry/MedSurg (Inpatient) dr5 dr5 16:00 13:28 Stable dr5 dr5 16:00 13:28 chronic dr5 dr5 16:00 13:28 have worsened dr5 dr5 16:00 13:28 Standard dr5 dr5 16:00 13:28 dr5 dr5 16:00 13:28 Heart failure, unspecified dr5 dr5
--- NOTE | 2024-05-30 13:28 | ER ---
Nurse's Notes [facility] Name: Campos Odonnell Age: 68 yrs Sex: Female : 1955 Arrival Date: 05/30/2024 Time: 11:41 Bed 7 Private MD: Diagnosis: Pain in right shoulder;Unspecified combined systolic (congestive) and diastolic (congestive) heart failure Presentation: 05/30 11:44 Chief complaint: EMS states: right upper back pain today, she vomited/dry heaved and iw the pain went away. Coronavirus screen: At this time, the client does not indicate any symptoms associated with coronavirus-19. Ebola Screen: No symptoms or risks identified at this time. Initial Sepsis Screen: Does the patient meet any 2 criteria? No. Patient's initial sepsis screen is negative. Does the patient have a suspected source of infection? No. Patient's initial sepsis screen is negative. Risk Assessment: Do you want to hurt yourself or someone else? Patient reports no desire to harm self or others. Onset of symptoms was May 30, 2024. 11:44 Method Of Arrival: EMS: [facility] iw 11:44 Acuity: [place] 3 iw 11:45 Care prior to arrival: IV initiated. 20 GA, in the left wrist. iw Historical: - Allergies: 11:45 Lyrica; iw - Home Meds: 14:00 tramadol 100 mg Oral tablet 1 tab as needed [Active]; gabapentin 600 mg oral tablet 2 cm10 tabs every day at bedtime [Active]; carvedilol 25 mg oral tablet 1 tab 2 times per day [Active]; Jardiance 10 mg oral tablet 1 tab daily [Active]; montelukast 10 mg oral tablet 1 tab as needed [Active]; simvastatin 20 mg Oral tablet 1 tab 3 times per week [Active]; spironolactone 25 mg Oral tablet 3 times per week [Active]; Tresiba U-100 Insulin 100 unit/mL subcutaneous solution [Active]; - PMHx: 11:45 chronic back pain; CHF; COPD; Diabetes - IDDM; Hypertension; Renal Disease; iw - PSHx: 11:45 back surgery x3; iw - Immunization history:: Adult Immunizations up to date. - Infectious Disease History:: Denies. - Social history:: Smoking status: Patient denies any tobacco usage or history of. Screenin:58 [facility] ED Fall Risk Assessment (Adult) History of falling in the last 3 months, cm10 including since admission No falls in past 3 months (0 pts) Confusion or Disorientation No (0 pts) Intoxicated or Sedated No (0 pts) Impaired Gait No (0 pts) Mobility Assist Device Used No (0 pt) Altered Elimination No (0 pt) Score/Fall Risk Level 0 - 2 = Low Risk Oriented to surroundings, Maintained a safe environment, Hourly rounding (assess needs \T\ fall precautionary measures) done. Abuse screen: Denies threats or abuse. Denies injuries from another. Nutritional screening: No deficits noted. Tuberculosis screening: No symptoms or risk factors identified. Assessment: 13:00 General: Appears in no apparent distress. comfortable, Behavior is calm, cooperative, cm10 appropriate for age. Pain: Denies pain. Neuro: No deficits noted. Level of Consciousness is awake, alert, obeys commands, Oriented to person, place, time, situation, Appropriate for age. Respiratory: No deficits noted. Airway is patent Respiratory effort is even, unlabored, Respiratory pattern is regular, symmetrical, Breath sounds are clear bilaterally. GI: Reports nausea, vomiting. 13:05 Reassessment: Pt provided with food at this time. cm10 16:23 Reassessment: Patient appears in no apparent distress at this time. Patient and/or cm10 family updated on plan of care and expected duration. Pain level reassessed. Patient is alert, oriented x 3, equal unlabored respirations, skin warm/dry/pink. Patient states feeling better. Patient states symptoms have improved. Vital Signs: 11:44 BP 157 / 105; Pulse 69; Resp 19; Pulse Ox 100% on R/A; iw 13:04 BP 164 / 80; Pulse 71; Resp 18; Temp 98.4; Pulse Ox 98% on R/A; cm10 16:23 BP 182 / 76; Pulse 69; Resp 15; Pulse Ox 97% on R/A; cm10 ED Course: 11:43 Patient arrived in ED. cm10 11:45 Brown Chapman FNP-C is [facility]. dr5 11:45 Greg Doe MD is Attending Physician. dr5 11:45 Triage completed. iw 11:45 Arm band placed on. iw 12:40 Zaid, Laine, RN is Primary Nurse. cm10 12:58 XRAY Chest (1 view) In Process Unspecified. EDMS 13:00 Maintain EMS IV. Dressing intact. Good blood return noted. Site clean \T\ dry. Gauge \T\ cm 10 site: 20g left FA. Flushed with 10 mL NS. 13:26 Greg Doe MD is Hospitalizing Provider. dr5 13:26 Shantanu Young is Hospitalizing Provider. dr5 13:58 Patient has correct armband on for positive identification. Bed in low position. Call cm10 light in reach. Side rails up X2. Provided Education on: ER process and procedures. Client placed on continuous cardiac and pulse oximetry monitoring. NIBP monitoring applied. monitor technician on. 14:27 US Abdomen Limited In Process Unspecified. EDMS 16:23 No provider procedures requiring assistance completed. IV discontinued, intact, cm10 bleeding controlled, No redness/swelling at site. Pressure dressing applied. Administered Medications: 13:04 Drug: Aspirin PO Chewable Tablet 324 mg PO once; 81 mg tablets x 4 Route: PO; cm10 13:54 Follow up: Response: No adverse reaction cm10 13:53 Drug: Furosemide IVP 40 mg IVP once; give over 2 minutes Route: IVP; Site: left forearm;cm10 14:23 Follow up: Response: No adverse reaction cm10 Medication: 13:58 VIS not applicable for this client. cm10 Outcome: 13:28 Decision to Hospitalize by Provider. dr5 16:00 Discharge ordered by MD. dr5 16:23 Discharged to home via wheelchair, pt waiting for ride in [employer]. cm10 16:23 Condition: good 16:23 Discharge instructions given to patient, Instructed on discharge instructions, follow up and referral plans. medication usage, Demonstrated understanding of instructions, follow-up care, medications, Prescriptions given X 1, 16:33 Patient left the ED. cm10 Signatures: Dispatcher [employer] Maisha Al RN RN iw Martinez, Clarissa, RN RN cm10 Brown Chapman, BIOTECHNICIAN-C BIOTECHNICIAN-Cdr5
--- NOTE | 2024-05-30 14:23 | P.HP ---
Certification for Inpatient Patient admitted to: Observation With expected LOS: <2 Midnights Patient will require the following post-hospital care: None Practitioner: I am a practitioner with admitting privileges, knowledge of patient current condition, hospital course, and medical plan of care. Services: Services provided to patient in accordance with Admission requirements found in Title 42 Section 412.3 of the Code of Federal Regulations Patient History Date of Service: 05/30/24 Reason for admission: Back pain, vomiting x 1 History of Present Illness: Ms. Odonnell is a 68-year-old female with a past medical history of hypertension, congestive failure, diabetes, chronic back pain, constipation and chronic kidney disease. She arrived to the emergency department complaining of right upper shoulder/back pain with nausea. She apparently vomited x 1 and her pain was resolved. In the emergency department, she is comfortable, denies shortness of breath, denies nausea, but does still have some minimal right upper shoulder/back pain. Chest x-ray shows mild interstitial fluid and cardiomegaly. She was given 40 mg of Lasix IV push in the ED. The hospitalist program was asked to admit her for exacerbation of congestive heart failure and mild ROOPA superimposed on her CKD. Her home meds consist of carvedilol 25 mg twice daily, simvastatin 20 mg 3 times weekly, spironolactone 25 mg 3 times weekly, Tresiba 40 to 60 units, Jardiance 10 mg p.o. daily, gabapentin 1200 mg at bedtime, and tramadol as needed. We will rule out biliary colic and UTI and discharge patient from the emergency department as she really does not meet criteria for admission. Allergies pregabalin [From Lyrica] Allergy (Verified 07/29/20 02:20) Hives/Rash Home medications list reviewed: Yes Home Medications: Atorvastatin Calcium [Lipitor] 40 mg PO BEDTIME #30 tab 08/02/20 Ferrous Sulfate [Ferrous Sulfate*] 325 mg PO BID #60 tab 08/02/20 Hydralazine [Apresoline*] 25 mg PO BID #60 tab 08/02/20 Insulin Glargine Human [Lantus*] 13 units SQ BEDTIME ml 08/02/20 Metoprolol Tartrate [Lopressor*] 25 mg PO BID 6AM 6PM #60 tab 08/02/20 Pantoprazole [Protonix Tab*] 40 mg PO DAILYAC #60 tab 08/02/20 traMADol HCL [Ultram*] 50 mg PO Q6H PRN #30 tab 08/02/20 - Past Medical/Surgical History Diabetic: Yes -: CHF-unknown EF -: Diabetes mellitus type 2 -: CKD 3 -: Hypertension -: Chronic constipation -: Chronic upper GI bleed -: Chronic back pain -: left side "nerve damage" -: -: Back surgery -: Hysterectomy Psychosocial/ Personal History: Patient retired, lives alone - Family History Father -: Heart disease Mother -: Hypertension, Diabetes - Social History Alcohol use: No CD- Drugs: No Caffeine use: No Place of Residence: Home Review of Systems 10-point ROS is otherwise unremarkable General: Unremarkable Eyes: Unremarkable ENT: Unremarkable Respiratory: Unremarkable Cardiovascular: Unremarkable Gastrointestinal: Vomiting (X 1) Genitourinary: Unremarkable Musculoskeletal: Back Pain Integumentary: Unremarkable Neurological: Unremarkable Lymphatics: Unremarkable Physical Examination - Physical Exam General: Alert, Oriented x3, Obese (So I will next level) HEENT: Atraumatic, Normocephalic Neck: Supple Respiratory: Normal air movement Cardiovascular: No edema, Regular rate/rhythm, Normal S1 S2 Capillary refill: <2 Seconds Gastrointestinal: Normal bowel sounds, No rebound, No guarding Musculoskeletal: No clubbing, Other (Neuropathy to the left lower extremity, chronic back pain) Integumentary: No rashes, No breakdown Neurological: Normal speech, Normal tone, Normal affect External genitalia: Deferred Rectal: Deferred - Studies Laboratory Data (last 24 hrs) 05/30/24 05/30/24 11:53 11:53 WBC 6.80 Hgb 10.7 L Hct 33.9 L Plt Count 234 Sodium 144 Potassium 4.7 BUN 49 H Creatinine 2.40 H Glucose 96 Total Bilirubin 0.3 AST < 10 L ALT < 14 Alkaline Phosphatase 132 H Lipase 39 Assessment and Plan - Plan Evaluate further in the emergency room for care was given: Concern for exacerbation of CHF, patient seems to be at her baseline Microcytic hypochromic anemia, chronic with no evidence of acute bleeding Lasix 40 mg slow IV push given x 1, patient ambulatory to the bathroom. UA sent for micro with reflex Will observe while urine micro is pending Back pain: History of chronic back pain, gallbladder ultrasound within normal limits Recommend continuing all patient current medications. If tramadol is not enough to help back pain, we will send Tylenol 3 Rx to her pharmacy. She should follow-up with her PCP next week Discharge Plan: Home - Advance Directives Does patient have a Living Will: No Does patient have a Durable POA for Healthcare: No - Code Status/Comfort Care Code Status Assessed: Yes (Full) Critical Care: No
--- NOTE | 2024-05-30 14:33 | RAD REPORT ---
EXAM: Right upper quadrant ultrasound. CLINICAL HISTORY: NAUSEA / VOMITING COMPARISON: None. FINDINGS: Gallbladder: Normal. Bile ducts: No intrahepatic or extrahepatic biliary dilatation. Common bile duct measures 2 mm. Limited imaging of the liver shows no concerning finding. IMPRESSION: Unremarkable exam.
[2024-05-30 14:45] LABS: Sqamous Epithelial <5 /HPF (None Seen); Urine Bacteria <20 /HPF (<20); Urine Bilirubin NEGATIVE (Negative); Urine Blood Negative (Negative); Urine Clarity Clear (Clear); Urine Color Colorless (Yellow); Urine Crystals Unidentified Few /HPF (None Seen); Urine Culture Reflex Order NOT NEEDED; Urine Glucose 3+ (Negative); Urine Ketones NEGATIVE (Negative); Urine Microscopic Reflex YN ORDER UMIC; Urine Nitrite NEGATIVE (Negative); Urine Protein 1+ (Negative); Urine RBC <5 /HPF (None Seen); Urine Urobilinogen Normal (Normal); Urine WBC <5 /HPF (<5); Urine WBC Clump Rare /HPF (None Seen); Urine pH 6.5 (5.0-7.0)
--- NOTE | 2024-05-30 15:03 | P.CNS ---
Date of Consult: 05/30/24 Reason for Consult: Admission review Requesting Physician: Brown Chapman Primary Care Provider: Isabel Chief Complaint: Back pain, vomiting x 1 History of Present Illness: Ms. Mata is a 68-year-old female with a past medical history of hypertension, congestive failure, diabetes, chronic back pain, constipation and chronic kidney disease. She arrived to the emergency department complaining of right upper shoulder/back pain with nausea. She apparently vomited x 1 and her pain was resolved. In the emergency department, she is comfortable, denies shortness of breath, denies nausea, but does still have some minimal right upper shoulder/back pain. Chest x-ray shows mild interstitial fluid and cardiomegaly. She was given 40 mg of Lasix IV push in the ED. The hospitalist program was asked to admit her for exacerbation of congestive heart failure and mild ROOPA superimposed on her CKD. Her home meds consist of carvedilol 25 mg twice daily, simvastatin 20 mg 3 times weekly, spironolactone 25 mg 3 times weekly, Tresiba 40 to 60 units, Jardiance 10 mg p.o. daily, gabapentin 1200 mg at bedtime, and tramadol as needed. We will rule out biliary colic and UTI and discharge patient from the emergency department as she really does not meet criteria for admission. - Past Medical/Surgical History Diabetic: Yes -: CHF-unknown EF -: Diabetes mellitus type 2 -: CKD 3 -: Hypertension -: Chronic constipation -: Chronic upper GI bleed -: Chronic back pain -: left side "nerve damage" -: -: Back surgery -: Hysterectomy Psychosocial/ Personal History: Patient retired, lives alone - Family History Father Medical History: Heart disease Mother Medical History: Hypertension, Diabetes - Social History Alcohol use: No CD- Drugs: No Caffeine use: No Place of Residence: Home <Marce Pate - Last Filed: 05/30/24 15:01> <CELESTE Young - Last Filed: 05/30/24 15:56> Allergies pregabalin [From Lyrica] Allergy (Verified 07/29/20 02:20) Hives/Rash Home Medications: Atorvastatin Calcium [Lipitor] 40 mg PO BEDTIME #30 tab 08/02/20 Ferrous Sulfate [Ferrous Sulfate*] 325 mg PO BID #60 tab 08/02/20 Hydralazine [Apresoline*] 25 mg PO BID #60 tab 08/02/20 Insulin Glargine Human [Lantus*] 13 units SQ BEDTIME ml 08/02/20 Metoprolol Tartrate [Lopressor*] 25 mg PO BID 6AM 6PM #60 tab 08/02/20 Pantoprazole [Protonix Tab*] 40 mg PO DAILYAC #60 tab 08/02/20 traMADol HCL [Ultram*] 50 mg PO Q6H PRN #30 tab 08/02/20 Physical Examination Laboratory Data (last 24 hrs) 05/30/24 05/30/24 11:53 11:53 WBC 6.80 Hgb 10.7 L Hct 33.9 L Plt Count 234 Sodium 144 Potassium 4.7 BUN 49 H Creatinine 2.40 H Glucose 96 Total Bilirubin 0.3 AST < 10 L ALT < 14 Alkaline Phosphatase 132 H Lipase 39 <RioMarcewellington Shafer - Last Filed: 05/30/24 15:01> Laboratory Data (last 24 hrs) 05/30/24 05/30/24 11:53 11:53 WBC 6.80 Hgb 10.7 L Hct 33.9 L Plt Count 234 Sodium 144 Potassium 4.7 BUN 49 H Creatinine 2.40 H Glucose 96 Total Bilirubin 0.3 AST < 10 L ALT < 14 Alkaline Phosphatase 132 H Lipase 39 <CELESTE Young - Last Filed: 05/30/24 15:56> Conclusions/Impression: Patient Name: BILLY MATA Date of : 1955 Patient Status: Emergency Emergency Provider: Greg Doe Date: 05/30/24 14:13 Initialization Date: 05/30/24 14:13 Certification for Inpatient Patient admitted to: Observation With expected LOS: <2 Midnights Patient will require the following post-hospital care: None Practitioner: I am a practitioner with admitting privileges, knowledge of patient current condition, hospital course, and medical plan of care. Services: Services provided to patient in accordance with Admission requirements found in Title 42 Section 412.3 of the Code of Federal Regulations Patient History Date of Service: 05/30/24 Reason for admission: Back pain, vomiting x 1 History of Present Illness: Ms. Mata is a 68-year-old female with a past medical history of hypertension, congestive failure, diabetes, chronic back pain, constipation and chronic kidney disease. She arrived to the emergency department complaining of right upper shoulder/back pain with nausea. She apparently vomited x 1 and her pain was resolved. In the emergency department, she is comfortable, denies shortness of breath, denies nausea, but does still have some minimal right upper shoulder/back pain. Chest x-ray shows mild interstitial fluid and cardiomegaly. She was given 40 mg of Lasix IV push in the ED. The hospitalist program was asked to admit her for exacerbation of congestive heart failure and mild ROOPA superimposed on her CKD. Her home meds consist of carvedilol 25 mg twice daily, simvastatin 20 mg 3 times weekly, spironolactone 25 mg 3 times weekly, Tresiba 40 to 60 units, Jardiance 10 mg p.o. daily, gabapentin 1200 mg at bedtime, and tramadol as needed. We will rule out biliary colic and UTI and discharge patient from the emergency department as she really does not meet criteria for admission. Allergies pregabalin [From Lyrica] Allergy (Verified 07/29/20 02:20) Hives/Rash Home medications list reviewed: Yes Home Medications: Atorvastatin Calcium [Lipitor] 40 mg PO BEDTIME #30 tab 08/02/20 Ferrous Sulfate [Ferrous Sulfate*] 325 mg PO BID #60 tab 08/02/20 Hydralazine [Apresoline*] 25 mg PO BID #60 tab 08/02/20 Insulin Glargine Human [Lantus*] 13 units SQ BEDTIME ml 08/02/20 Metoprolol Tartrate [Lopressor*] 25 mg PO BID 6AM 6PM #60 tab 08/02/20 Pantoprazole [Protonix Tab*] 40 mg PO DAILYAC #60 tab 08/02/20 traMADol HCL [Ultram*] 50 mg PO Q6H PRN #30 tab 08/02/20 - Past Medical/Surgical History Diabetic: Yes -: CHF-unknown EF -: Diabetes mellitus type 2 -: CKD 3 -: Hypertension -: Chronic constipation -: Chronic upper GI bleed -: Chronic back pain -: left side "nerve damage" -: -: Back surgery -: Hysterectomy Psychosocial/ Personal History: Patient retired, lives alone - Family History Father -: Heart disease Mother -: Hypertension, Diabetes - Social History Alcohol use: No CD- Drugs: No Caffeine use: No Place of Residence: Home Review of Systems 10-point ROS is otherwise unremarkable General: Unremarkable Eyes: Unremarkable ENT: Unremarkable Respiratory: Unremarkable Cardiovascular: Unremarkable Gastrointestinal: Vomiting (X 1) Genitourinary: Unremarkable Musculoskeletal: Back Pain Integumentary: Unremarkable Neurological: Unremarkable Lymphatics: Unremarkable Physical Examination - Physical Exam General: Alert, Oriented x3, Obese (So I will next level) HEENT: Atraumatic, Normocephalic Neck: Supple Respiratory: Normal air movement Cardiovascular: No edema, Regular rate/rhythm, Normal S1 S2 Capillary refill: <2 Seconds Gastrointestinal: Normal bowel sounds, No rebound, No guarding Musculoskeletal: No clubbing, Other (Neuropathy to the left lower extremity, chronic back pain) Integumentary: No rashes, No breakdown Neurological: Normal speech, Normal tone, Normal affect External genitalia: Deferred Rectal: Deferred - Studies Laboratory Data (last 24 hrs) 05/30/24 05/30/24 11:53 11:53 WBC 6.80 Hgb 10.7 L Hct 33.9 L Plt Count 234 Sodium 144 Potassium 4.7 BUN 49 H Creatinine 2.40 H Glucose 96 Total Bilirubin 0.3 AST < 10 L ALT < 14 Alkaline Phosphatase 132 H Lipase 39 Assessment and Plan - Plan Evaluate further in the emergency room for care was given: Concern for exacerbation of CHF, patient seems to be at her baseline Microcytic hypochromic anemia, chronic with no evidence of acute bleeding Lasix 40 mg slow IV push given x 1, patient ambulatory to the bathroom. UA sent for micro with reflex Will observe while urine micro is pending Back pain: History of chronic back pain, gallbladder ultrasound within normal limits Recommend continuing all patient current medications. If tramadol is not enough to help back pain, we will send Tylenol 3 Rx to her pharmacy. She should follow-up with her PCP next week Discharge Plan: Home - Advance Directives Does patient have a Living Will: No Does patient have a Durable POA for Healthcare: No - Code Status/Comfort Care Code Status Assessed: Yes (Full) Critical Care: No <Marce Pate - Last Filed: 05/30/24 15:01> Conclusions/Impression: This is 68 years old female patient with a past medical history notable for hypertension, CKD, type 2 diabetes, chronic back pain status post lumbar spine surgery who presented to emergency room for evaluation of acute exacerbation of her back pain. She takes tramadol as needed for back pain at home. Clinically and radiologically the patient has no sign of acute heart failure. She has a history of CKD, her renal function is stable compared to previous creatinine, no serious electrolyte imbalance, mildly elevated N-terminal proBNP and high-sensitivity troponin can be contributed to her CKD. I agree with midlevel provider assessment and she is safe to be discharged home with pain medication. <CELESTE Young - Last Filed: 05/30/24 15:56>
[2024-05-30 16:39] VITALS: TEMP 98.4
[2024-05-30 16:40] VITALS: BP 182/76; O2SAT 97
--- NOTE | 2024-06-08 11:18 | EKG ---
Test Date: 2024-05-30 Test Time: 12:07:11 Car Knocker: SABRINA MEASUREMENT RESULTS: Intervals: Rate: 66 DC: 176 QRSD: 96 QT: 448 QTc: 469 [place]: P: 65 DC: 176 QRS: 37 T: 105 INTERPRETIVE STATEMENTS: Normal sinus rhythm T wave abnormality, consider lateral ischemia Abnormal ECG Compared to ECG 04/14/2021 14:01:06 T-wave abnormality now present Possible ischemia now present Prolonged QT interval no longer present Electronically Signed On 06-08-24 11:04:44 [employer] MACHINE OFFBEARER by Paulo Jurado
== END 2024-05-30 16:33 | disposition home or self-care (01) ==
LOC: ER 11:41
DX: M25.511 Pain in right shoulder (principal); I50.40 Unspecified combined systolic (congestive) and diastolic (congestive) heart failure; J44.9 Chronic obstructive pulmonary disease, unspecified; E11.22 Type 2 diabetes mellitus with diabetic chronic kidney disease; Z79.4 Long term (current) use of insulin; I12.9 Hypertensive chronic kidney disease with stage 1 through stage 4 chronic kidney disease, or unspecified chronic kidney disease; N18.30 Chronic kidney disease, stage 3 unspecified
CPT/HCPCS: 93005; 85025; 81001; 36415; 84484; 83690; 80053; 83880; 71045; 76705; 96374; 99285; J1940